=== PATIENT | male | born 1950 | race Caucasian/White ===

== ENCOUNTER 2018-05-16 15:35 | Inpatient (IN) | payer MEDICARE, SELFPAY ==
[2018-05-16 16:44] VITALS: BP 152/72; PULSE 62; RESP 18; TEMP 36.9; O2SAT 92; BMI 32.4
--- NOTE | 2018-05-16 16:45 | NURSING ---
Pt admitted to 9 from [facility]. Patient oriented to room and call light system explained.
--- NOTE | 2018-05-16 16:47 | PCM.HP.STD ---
Problem List (1) Acute respiratory failure Status: Acute (2) Shortness of breath Status: Acute (3) HCAP (healthcare-associated pneumonia) Status: Acute (4) Recurrent pleural effusion on right Status: Chronic (5) Hypertriglyceridemia Status: Chronic (6) Systolic and diastolic CHF, acute on chronic Status: Acute (7) Chronic kidney disease Status: Chronic (8) Diabetes mellitus Status: Chronic (9) Obesity Status: Chronic (10) Hypertension Status: Chronic History of Present Illness Date of Admission: 05/16/18 Chief Complaint: Here for rehabilitation, strengthening, prior to discharge home. The patient is a 67 year old Male with below past medical history presented to [facility] 05/09/2018 with shortness of breath. He has a history of acute on chronic respiratory failure with hypoxia on 4 Liters oxygen, recurrent pleural effusion on Pleurex drain. He was diagnosed with fluid overload secondary to acute on chronic systolic diastolic heart failure, and right lower lobe healthcare associated pneumonia. Chest X-ray showed fluid overload, Lasix was given. IV antibiotics given for healthcare associated pneumonia. EF 40%. Vancomycin, Zosyn for healthcare associated pneumonia. 05/16/2018 Admit to TCU with debility, here for rehabilitation, strengthening, prior to discharge home with spouse. Past Medical History Past Medical History (Chronic Problems): Chronic Problems Recurrent pleural effusion on right (Chronic) Hypertriglyceridemia (Chronic) Chronic kidney disease (Chronic) Diabetes mellitus (Chronic) Type 2 diabetes mellitus (Chronic) Obesity (Chronic) Hypertension (Chronic) History of tobacco use (Chronic) Home Medications: Ambulatory Orders Medication Instructions Recorded Amlodipine [Norvasc] 5 mg PO DAILY 05/16/18 Atorvastatin Calcium [Lipitor] 40 mg PO QHS 05/16/18 Carvedilol [Coreg] 6.25 mg PO BID 05/16/18 Doxazosin Mesylate [Cardura] 4 mg PO QHS 05/16/18 Ipratropium/Albuterol Sulfate 3 ml INHALATION Q2H PRN PRN 05/16/18 [Duoneb] Mirtazapine [Remeron] 15 mg PO QHS 05/16/18 Multivitamin [Daily Multiple 1 each PO DAILY 05/16/18 Vitamin] RX: Aspirin E.C. [Ecotrin] 81 mg PO DAILY@0800 05/16/18 RX: Ferrous Sulfate 325 mg PO BIDCM 05/16/18 RX: Furosemide 40 mg PO DAILY 05/16/18 RX: Hydralazine HCl 75 mg PO TID 05/16/18 RX: Pantoprazole Sodium 40 mg PO DAILY 05/16/18 Tiotropium [place] [Spiriva] 18 mcg IH DAILY 05/16/18 Surgical History: cholecystectomy, herniorrhaphy, - - Right toes amputation, right Pleurex catheter insertion. Psychiatric History: No pertinent psych hx Lives: Spouse/ Significant Other Smoking Status: Former smoker Tobacco Use: Cigarettes - Quit 09/20/2000. Alcohol: None Drugs: None - *Family History Maternal History Items: Cancer - breast., Diabetes, Heart Disease Paternal History Items: Diabetes, Heart Disease Review of Systems Constitutional: Denies: Chills, Fever, Weight Change HEENT: Denies: Head Aches, Sinus Congestion, Sinus Drainage Cardiovascular: Denies: Chest Pain, Palpitations Respiratory: Reports: Shortness of Breath, Shortness of breath at rest, Shortness of breath upon exertion. Denies: Cough, Sputum production Gastrointestinal: Denies: Abdominal Pain, Nausea, Vomiting Genitourinary: Denies: Dysuria Musculoskeletal: Denies: Joint Pain, Joint Tenderness Skin: Denies: Rash, Wounds Neurological: Denies: Numbness, Tingling, Focal weakness Psychiatric: Denies: Anxiety, Depression, Homicidal Ideations, Suicidal Ideations Hematologic/ Lymphatic: Denies: Easy Bruising, Easy Bleeding VTE Information - Inpt Only VTE Present on Admission: No VTE Mechan Device Prophylaxis: Knee High RUMA Hose VTE Pharm Prophylaxis ordered?: Yes Patient Problems: Active and Suspected Problems Acute respiratory failure (Acute) Shortness of breath (Acute) HCAP (healthcare-associated pneumonia) (Acute) Systolic and diastolic CHF, acute on chronic (Acute) - Physical Exam General: Alert, Oriented x3, Cooperative HEENT: Atraumatic, PERRLA, EOMI, Normocephalic Neck: Supple, No JVD, Negative Carotid Bruits Lungs: Diminished, Short of Breath, - - Right anterior chest pleurex catheter. Cardiovascular: Regular rate, No murmurs Abdomen: Bowel Sounds Present, Soft, Non Tender Extremities: No edema, Capillary Refill Less than 3 Seconds Skin: No rashes, No breakdown Musculoskeletal: No Tenderness to Palpation of Joints or Extremities Neurological: Cranial nerves II-XII grossly intact Psych/Mental Status: Normal Affect, Appropriate Assessment/Plan All Active Problems Acute respiratory failure (Acute) Shortness of breath (Acute) HCAP (healthcare-associated pneumonia) (Acute) Systolic and diastolic CHF, acute on chronic (Acute) 67 year old male with below past medical history hospitalized for acute respiratory failure from acute on chronic systolic diastolic heart failure, right lower lobe healthcare associated pneumonia, admitted to TCU with debility, here for rehabilitation, strengthening, prior to discharge home with spouse. Debility - PT/OT. Pain - Tylenol 1000MG Q8H PRN mild pain. Bowel - Miralax 17GM daily, Senna/colace 1 tablet BID, Dulcolax 10MG PO daily PRN. Pneumonia vaccination - Administer Prevnar 13 and/or Pneumovax 23 as necessary. DVT prophylaxis - Lovenox 40MG SC daily. Hypertension - Coreg 6.25MG BID, Amlodipine 5MG daily, Hydralazine 75MG TID. Coronary Artery Disease - Coreg 6.25MG BID, Aspirin 81MG daily. Hyperlipidemia - Atorvastatin 40MG QHS. Acute on chronic systolic diastolic heart failure - Coreg 6.25MG BID, Hydralazine 75MG TID, Lasix 40MG daily. Unable to afford Entresto, will not start. Shortness of breath - Duoneb 3ML Q2H PRN, Spiriva 18MCG daily. Depression/insomnia/appetite decrease - Mirtazapine 15MG QHS. Nutrition - MVI daily. GERD - Pantoprazole 40MG daily. BPH - Doxazosin 4MG QHS. Iron deficiency anemia - Ferrex 150MG BID.
--- NOTE | 2018-05-16 17:04 | HP.PCM_ITS ---
Problem List (1) Acute respiratory failure Status: Acute (2) Shortness of breath Status: Acute (3) HCAP (healthcare-associated pneumonia) Status: Acute (4) Recurrent pleural effusion on right Status: Chronic (5) Hypertriglyceridemia Status: Chronic (6) Systolic and diastolic CHF, acute on chronic Status: Acute (7) Chronic kidney disease Status: Chronic (8) Diabetes mellitus Status: Chronic (9) Obesity Status: Chronic (10) Hypertension Status: Chronic History of Present Illness Date of Admission: 05/16/18 Chief Complaint: Here for rehabilitation, strengthening, prior to discharge home. The patient is a 67 year old Male with below past medical history presented to [facility] 05/09/2018 with shortness of breath. He has a history of acute on chronic respiratory failure with hypoxia on 4 Liters oxygen, recurrent pleural effusion on Pleurex drain. He was diagnosed with fluid overload secondary to acute on chronic systolic diastolic heart failure, and right lower lobe healthcare associated pneumonia. Chest X-ray showed fluid overload, Lasix was given. IV antibiotics given for healthcare associated pneumonia. EF 40%. Vancomycin, Zosyn for healthcare associated pneumonia. 05/16/2018 Admit to TCU with debility, here for rehabilitation, strengthening, prior to discharge home with spouse. Past Medical History Past Medical History (Chronic Problems): Chronic Problems Recurrent pleural effusion on right (Chronic) Hypertriglyceridemia (Chronic) Chronic kidney disease (Chronic) Diabetes mellitus (Chronic) Type 2 diabetes mellitus (Chronic) Obesity (Chronic) Hypertension (Chronic) History of tobacco use (Chronic) Home Medications: Ambulatory Orders Medication Instructions Recorded Amlodipine [Norvasc] 5 mg PO DAILY 05/16/18 Atorvastatin Calcium [Lipitor] 40 mg PO QHS 05/16/18 Carvedilol [Coreg] 6.25 mg PO BID 05/16/18 Doxazosin Mesylate [Cardura] 4 mg PO QHS 05/16/18 Ipratropium/Albuterol Sulfate 3 ml INHALATION Q2H PRN PRN 05/16/18 [Duoneb] Mirtazapine [Remeron] 15 mg PO QHS 05/16/18 Multivitamin [Daily Multiple 1 each PO DAILY 05/16/18 Vitamin] RX: Aspirin E.C. [Ecotrin] 81 mg PO DAILY@0800 05/16/18 RX: Ferrous Sulfate 325 mg PO BIDCM 05/16/18 RX: Furosemide 40 mg PO DAILY 05/16/18 RX: Hydralazine HCl 75 mg PO TID 05/16/18 RX: Pantoprazole Sodium 40 mg PO DAILY 05/16/18 Tiotropium [place] [Spiriva] 18 mcg IH DAILY 05/16/18 Surgical History: cholecystectomy, herniorrhaphy, - - Right toes amputation, right Pleurex catheter insertion. Psychiatric History: No pertinent psych hx Lives: Spouse/ Significant Other Smoking Status: Former smoker Tobacco Use: Cigarettes - Quit 09/20/2000. Alcohol: None Drugs: None - *Family History Maternal History Items: Cancer - breast., Diabetes, Heart Disease Paternal History Items: Diabetes, Heart Disease Review of Systems Constitutional: Denies: Chills, Fever, Weight Change HEENT: Denies: Head Aches, Sinus Congestion, Sinus Drainage Cardiovascular: Denies: Chest Pain, Palpitations Respiratory: Reports: Shortness of Breath, Shortness of breath at rest, Shortness of breath upon exertion. Denies: Cough, Sputum production Gastrointestinal: Denies: Abdominal Pain, Nausea, Vomiting Genitourinary: Denies: Dysuria Musculoskeletal: Denies: Joint Pain, Joint Tenderness Skin: Denies: Rash, Wounds Neurological: Denies: Numbness, Tingling, Focal weakness Psychiatric: Denies: Anxiety, Depression, Homicidal Ideations, Suicidal Ideations Hematologic/ Lymphatic: Denies: Easy Bruising, Easy Bleeding VTE Information - Inpt Only VTE Present on Admission: No VTE Mechan Device Prophylaxis: Knee High RUMA Hose VTE Pharm Prophylaxis ordered?: Yes Patient Problems: Active and Suspected Problems Acute respiratory failure (Acute) Shortness of breath (Acute) HCAP (healthcare-associated pneumonia) (Acute) Systolic and diastolic CHF, acute on chronic (Acute) - Physical Exam General: Alert, Oriented x3, Cooperative HEENT: Atraumatic, PERRLA, EOMI, Normocephalic Neck: Supple, No JVD, Negative Carotid Bruits Lungs: Diminished, Short of Breath, - - Right anterior chest pleurex catheter. Cardiovascular: Regular rate, No murmurs Abdomen: Bowel Sounds Present, Soft, Non Tender Extremities: No edema, Capillary Refill Less than 3 Seconds Skin: No rashes, No breakdown Musculoskeletal: No Tenderness to Palpation of Joints or Extremities Neurological: Cranial nerves II-XII grossly intact Psych/Mental Status: Normal Affect, Appropriate Assessment/Plan All Active Problems Acute respiratory failure (Acute) Shortness of breath (Acute) HCAP (healthcare-associated pneumonia) (Acute) Systolic and diastolic CHF, acute on chronic (Acute) 67 year old male with below past medical history hospitalized for acute respiratory failure from acute on chronic systolic diastolic heart failure, right lower lobe healthcare associated pneumonia, admitted to TCU with debility, here for rehabilitation, strengthening, prior to discharge home with spouse. * Debility - PT/OT. * Pain - Tylenol 1000MG Q8H PRN mild pain. * Bowel - Miralax 17GM daily, Senna/colace 1 tablet BID, Dulcolax 10MG PO daily PRN. * Pneumonia vaccination - Administer Prevnar 13 and/or Pneumovax 23 as necessary. * DVT prophylaxis - Lovenox 40MG SC daily. * Hypertension - Coreg 6.25MG BID, Amlodipine 5MG daily, Hydralazine 75MG TID. * Coronary Artery Disease - Coreg 6.25MG BID, Aspirin 81MG daily. * Hyperlipidemia - Atorvastatin 40MG QHS. * Acute on chronic systolic diastolic heart failure - Coreg 6.25MG BID, Hydralazine 75MG TID, Lasix 40MG daily. Unable to afford Entresto, will not start. * Shortness of breath - Duoneb 3ML Q2H PRN, Spiriva 18MCG daily. * Depression/insomnia/appetite decrease - Mirtazapine 15MG QHS. * Nutrition - MVI daily. * GERD - Pantoprazole 40MG daily. * BPH - Doxazosin 4MG QHS. * Iron deficiency anemia - Ferrex 150MG BID.
[2018-05-16 17:26] LABS: Bedside Glucose 105 mg/dL (70-110)
[2018-05-16] MEDS: Carvedilol 6.25 MG Tablet PO (19:51)
[2018-05-16 20:47] VITALS: PULSE 72; O2SAT 93
[2018-05-16 21:21] LABS: Bedside Glucose 235 mg/dL (70-110)
[2018-05-16 21:23] VITALS: BP 167/64; PULSE 75
[2018-05-16] MEDS: Atorvastatin Calcium 40 MG Tablet PO (21:23)
[2018-05-16] MEDS: hydrALAZINE 25 MG Tablet 75 MG PO (21:23)
[2018-05-16] MEDS: Doxazosin 4 MG Tablet PO (21:23)
--- NOTE | 2018-05-16 23:05 | NURSING ---
No Order in for Pleurex drain. Order obtained from Dr Villegas at this time.
--- NOTE | 2018-05-16 23:54 | NURSING ---
Code status discussed with pt at this time. Pt wishes to be a Full Code.
[2018-05-17 00:44] VITALS: RESP 16
[2018-05-17] MEDS: Pantoprazole Sodium 40 MG Tablet PO (05:07)
[2018-05-17] MEDS: Furosemide 40 MG Tablet PO (05:07)
[2018-05-17] MEDS: Carvedilol 6.25 MG Tablet PO ×2 (05:07→17:03)
[2018-05-17] MEDS: amLODIPine 5 MG Tablet PO (05:07)
[2018-05-17 05:08] VITALS: BP 154/65; PULSE 70
[2018-05-17] MEDS: hydrALAZINE 25 MG Tablet 75 MG PO ×3 (05:08→20:03)
[2018-05-17] MEDS: Umeclidinium Bromide Inhaler 1 PUFF IH (05:09)
[2018-05-17 06:41] LABS: Bedside Glucose 125 mg/dL (70-110)
[2018-05-17 07:18] LABS: Absolute Lymphocyte Count 0.67 X10^3/ul (0.83-4.51); Absolute Neutrophil Count 4.3 X10^3/uL (2.0-7.7); Basophil# 0.02 X10^3/uL; Basophil% 0.3 % (0-1); Eosinophil# 0.36 X10^3/uL; Eosinophils% 5.9 % (0-5); Hematocrit 26.8 % (40-54); Hemoglobin 8.1 g/dl (13.0-16.5); Lymphocyte # 0.67 X10^3/ul (4.0); Mean Corp Hgb Conc 30.2 g/gl (32-36); Mean Corpuscular Hgb 30.1 pg (27.0-32.0); Mean Corpuscular Volume 99.6 fL (80-94); Monocyte# 0.72 X10^3/uL; Monocyte% 11.8 % (0-10); Neutrophil % 70.5 % (47-70); Platelet Count 138 K/mm3 (150-450); RBC Distribution Width CV 14.9 % (11.6-14.6); RBC Distribution Width SD 51.5 fl (35.1-43.9); Red Blood Count 2.69 M/mm3 (4.6-6.2); White Blood Count 6.1 K/mm3 (4.4-11.0)
[2018-05-17 07:23] LABS: POSITIVE COUNT NO; POSITIVE DIFFERENTIAL NO; POSITIVE MORPHOLOGY NO
[2018-05-17 07:45] LABS: Anion Gap 6 (5-15); BUN 42 mg/dL (7-18); Calcium,Total 8.3 mg/dL (8.5-10.1); Chloride 107 mmol/L (98-107); Creatinine, Serum 2.21 mg/dL (0.70-1.30); EST Glomerular Filtration Rate 32 mL/min (>60); Est Glom Filt Rate - Afr Amer 39 mL/min (>60); Estimated Creatinine Clearance 36.58 ml/min; Glucose 111 mg/dL (74-106); Potassium 4.8 mmol/L (3.5-5.1); Sodium Level 143 mmol/L (136-145)
[2018-05-17 08:28] VITALS: O2SAT 96
[2018-05-17] MEDS: Iron Polysaccharide Complex 150 MG CAPSULE PO ×2 (09:16→17:03)
[2018-05-17] MEDS: Multivitamins,Therapeutic Tablet 1 TABLET PO (09:16)
[2018-05-17] MEDS: Aspirin E.C. 81 MG Tablet PO (09:16)
[2018-05-17 12:06] LABS: Bedside Glucose 164 mg/dL (70-110)
[2018-05-17 14:25] VITALS: BP 154/59; PULSE 62
[2018-05-17] MEDS: Enoxaparin 40 MG/0.4 ML Syringe SC (14:26)
[2018-05-17] MEDS: Tuberculin,Purif.prot.deriv. 50 TU/ML Vial 5 ML ID (14:26)
[2018-05-17 15:31] VITALS: BP 145/56; PULSE 65; RESP 18; TEMP 37; O2SAT 95
[2018-05-17] MEDS: Senna/Docusate Sodium 1 Tablet PO (17:03)
[2018-05-17 20:03] VITALS: BP 142/46; PULSE 72
[2018-05-17] MEDS: Doxazosin 4 MG Tablet PO (20:03)
[2018-05-17] MEDS: Atorvastatin Calcium 40 MG Tablet PO (20:04)
[2018-05-18] MEDS: Umeclidinium Bromide Inhaler 1 PUFF IH (05:49)
[2018-05-18 05:50] VITALS: BP 135/58; PULSE 70
[2018-05-18] MEDS: hydrALAZINE 25 MG Tablet 75 MG PO ×3 (05:50→21:19)
[2018-05-18] MEDS: Senna/Docusate Sodium 1 Tablet PO ×2 (05:51→17:16)
[2018-05-18] MEDS: amLODIPine 5 MG Tablet PO (05:51)
[2018-05-18] MEDS: Furosemide 40 MG Tablet PO (05:51)
[2018-05-18] MEDS: Enoxaparin 40 MG/0.4 ML Syringe SC (05:51)
[2018-05-18] MEDS: Pantoprazole Sodium 40 MG Tablet PO (05:51)
[2018-05-18] MEDS: Carvedilol 6.25 MG Tablet PO ×2 (05:51→17:16)
[2018-05-18] MEDS: Loratadine 10 MG Tablet PO (05:51)
[2018-05-18 06:58] VITALS: O2SAT 96
[2018-05-18 07:26] LABS: Bedside Glucose 134 mg/dL (70-110)
[2018-05-18] MEDS: Aspirin E.C. 81 MG Tablet PO (08:04)
[2018-05-18] MEDS: Iron Polysaccharide Complex 150 MG CAPSULE PO ×2 (08:04→17:16)
[2018-05-18] MEDS: Multivitamins,Therapeutic Tablet 1 TABLET PO (08:07)
[2018-05-18 13:45] VITALS: PULSE 60
[2018-05-18 15:30] VITALS: BP 147/57; PULSE 62; RESP 16; TEMP 36.8; O2SAT 94
[2018-05-18 21:19] VITALS: BP 161/61; PULSE 64
[2018-05-18] MEDS: Doxazosin 4 MG Tablet PO (21:21)
[2018-05-18] MEDS: Atorvastatin Calcium 40 MG Tablet PO (21:21)
[2018-05-19 05:46] VITALS: BP 157/53; PULSE 59
[2018-05-19] MEDS: amLODIPine 5 MG Tablet PO (05:46)
[2018-05-19] MEDS: Loratadine 10 MG Tablet PO (05:46)
[2018-05-19] MEDS: hydrALAZINE 25 MG Tablet 75 MG PO ×3 (05:46→20:24)
[2018-05-19] MEDS: Carvedilol 6.25 MG Tablet PO ×2 (05:46→18:24)
[2018-05-19] MEDS: Pantoprazole Sodium 40 MG Tablet PO (05:46)
[2018-05-19] MEDS: Furosemide 40 MG Tablet PO (05:46)
[2018-05-19] MEDS: Senna/Docusate Sodium 1 Tablet PO (05:47)
[2018-05-19] MEDS: Enoxaparin 40 MG/0.4 ML Syringe SC (05:48)
[2018-05-19] MEDS: Umeclidinium Bromide Inhaler 1 PUFF IH (05:49)
[2018-05-19 06:30] LABS: Bedside Glucose 126 mg/dL (70-110)
[2018-05-19 06:50] VITALS: O2SAT 94
[2018-05-19] MEDS: Multivitamins,Therapeutic Tablet 1 TABLET PO (09:29)
[2018-05-19] MEDS: Iron Polysaccharide Complex 150 MG CAPSULE PO ×2 (09:29→18:24)
[2018-05-19] MEDS: Aspirin E.C. 81 MG Tablet PO (09:29)
--- NOTE | 2018-05-19 14:35 | PCM.PN.RX ---
<YinMilan lucero D - Last Filed: 05/19/18 14:35> Progress Note - Pharmacy Subjective: [] Objective: Allergies bacitracin Allergy (Verified 05/16/18 17:25) Rash rosuvastatin [From Crestor] Adverse Reaction (Verified 05/16/18 17:25) Upset Stomach Current Medications Generic Name Dose Route Start Last Admin Trade Name Freq PRN Reason Stop Dose Admin Acetaminophen 1,000 mg 05/16/18 17:27 Tylenol PO Q8H PRN PRN MILD PAIN (1-310) Albuterol/Ipratropium 3 ml 05/16/18 17:15 Duoneb INHALATION Q2H PRN PRN SOB &/OR WHEEZING Amlodipine Besylate 5 mg 05/17/18 06:00 05/19/18 05:46 Norvasc PO 5 mg DAILY JOCELYNN Administration Aspirin 81 mg 05/17/18 08:00 05/19/18 09:29 Ecotrin PO 81 mg DAILY@0800 JOCELYNN Administration Atorvastatin Calcium 40 mg 05/16/18 22:00 05/18/18 21:21 Lipitor PO 40 mg QHS JOCELYNN Administration Bisacodyl 10 mg 05/16/18 17:28 Dulcolax PO DAILY PRN Constipation Carvedilol 6.25 mg 05/16/18 18:00 05/19/18 05:46 Coreg PO 6.25 mg BID JOCELYNN Administration Doxazosin Mesylate 4 mg 05/16/18 22:00 05/18/18 21:21 Cardura PO 4 mg QHS JOCELYNN Administration Enoxaparin Sodium 40 mg 05/17/18 13:00 05/19/18 05:48 Lovenox SC 40 mg DAILY@0600 JOCELYNN Administration Furosemide 40 mg 05/17/18 06:00 05/19/18 05:46 Lasix PO 40 mg DAILY JOCELYNN Administration Hydralazine HCl 75 mg 05/16/18 22:00 05/19/18 05:46 Apresoline PO 75 mg TID JOCELYNN Administration Loratadine 10 mg 05/18/18 06:00 05/19/18 05:46 Claritin PO 10 mg DAILY JOCELYNN Administration Multivitamins 1 tablet 05/17/18 08:00 05/19/18 09:29 Multivitamin PO 1 tablet DAILY@0800 JOCELYNN Administration Pantoprazole Sodium 40 mg 05/17/18 06:00 05/19/18 05:46 Protonix PO 40 mg DAILY JOCELYNN Administration Polyethylene Glycol 17 gm 05/17/18 06:00 05/19/18 05:47 Miralax PO Not Given DAILY JOCELYNN Polysaccharide Iron Complex 150 mg 05/17/18 08:00 05/19/18 09:29 Ferrex 150 PO 150 mg BIDCM JOCELYNN Administration Senna/Docusate Sodium 1 tablet 05/16/18 18:00 05/19/18 05:47 Senokot-S, Marcelina-Colace PO 1 tablet BID JOCELYNN Administration Tuberculin PPD 5 tu 05/24/18 10:00 Tubersol, Aplisol, Ppd ID 05/24/18 10:01 X1 ONE Problem List Acute respiratory failure (Acute) Shortness of breath (Acute) HCAP (healthcare-associated pneumonia) (Acute) Recurrent pleural effusion on right (Chronic) Hypertriglyceridemia (Chronic) Systolic and diastolic CHF, acute on chronic (Acute) Chronic kidney disease (Chronic) Diabetes mellitus (Chronic) Vital Signs Temp Pulse Resp BP Pulse Ox 98.2 F 59 L 16 157/53 H 94 05/18/18 15:30 05/19/18 05:46 05/18/18 15:30 05/19/18 05:46 05/19/18 06:50 Oxygen Flow Rate (L/min) 2.5 Oxygen Delivery Method Nasal Cannula Weight: 108.409 kg Body Mass Index (BMI) 32.4 Sodium 143 mmol/L (136-145) 05/17/18 06:15 Potassium 4.8 mmol/L (3.5-5.1) 05/17/18 06:15 Chloride 107 mmol/L (98-107) 05/17/18 06:15 Carbon Dioxide 30.0 mmol/L (21.0-32.0) 05/17/18 06:15 Anion Gap 6 (5-15) 05/17/18 06:15 BUN 42 mg/dL (7-18) H 05/17/18 06:15 Creatinine 2.21 mg/dL (0.70-1.30) H 05/17/18 06:15 Est GFR (MDRD) Af Amer 39 mL/min (>60) L 05/17/18 06:15 Est GFR (MDRD) Non-Af 32 mL/min (>60) L 10/06/18 06:15 BUN/Creatinine Ratio 19.0 RATIO (10-20) 05/17/18 06:15 Glucose 111 mg/dL (74-106) H 05/17/18 06:15 Assessment/Plan: 1) Pain APAP for mild pain. Continue to monitor prn medication use, daily pain scores. 2) HTN/CAD/CHF Amlodipine, ASA, atorvastatin, carvedilol, doxazosin, furosemide, hydralazine. Continue to monitor BP/HR, renal function, electrolytes, lipids, swelling. 3) Pulm Loratadine, Duoneb aerosols prn, Incruse inh. Continue to monitor prn medication use, for shortness of breath. 4) Nutrition Fe, multivitamin. Continue to monitor clinically. 5) DVT PPx Enoxaparin daily. Continue to monitor s/s bleeding/clot. Psychotropic Medications: None Unnecessary Medications: None Bowel Regimen: 6) Senna/s, PEG, prn bisacodyl. Continue to monitor prn medication use, for constipation/diarrhea. Date of Note:: 05/19/18 - Provider Comments Provider responsibility: Provider responsible to enter orders to implement recommendations <Juan José Villegas Chi - Last Filed: 05/19/18 17:38> Progress Note - Pharmacy Subjective: [] Objective: Allergies bacitracin Allergy (Verified 05/16/18 17:25) Rash rosuvastatin [From Crestor] Adverse Reaction (Verified 05/16/18 17:25) Upset Stomach Current Medications Generic Name Dose Route Start Last Admin Trade Name Freq PRN Reason Stop Dose Admin Acetaminophen 1,000 mg 05/16/18 17:27 Tylenol PO Q8H PRN PRN MILD PAIN (1-3/10) Albuterol/Ipratropium 3 ml 05/16/18 17:15 Duoneb INHALATION Q2H PRN PRN SOB &/OR WHEEZING Amlodipine Besylate 5 mg 05/17/18 06:00 05/19/18 05:46 Norvasc PO 5 mg DAILY JOCELYNN Administration Aspirin 81 mg 05/17/18 08:00 05/19/18 09:29 Ecotrin PO 81 mg DAILY@0800 JOCELYNN Administration Atorvastatin Calcium 40 mg 05/16/18 22:00 05/18/18 21:21 Lipitor PO 40 mg QHS JOCELYNN Administration Bisacodyl 10 mg 05/16/18 17:28 Dulcolax PO DAILY PRN Constipation Carvedilol 6.25 mg 05/16/18 18:00 05/19/18 05:46 Coreg PO 6.25 mg BID [facility] Administration Doxazosin Mesylate 4 mg 05/16/18 22:00 05/18/18 21:21 Cardura PO 4 mg QHS [facility] Administration Enoxaparin Sodium 40 mg 05/17/18 13:00 05/19/18 05:48 Lovenox SC 40 mg DAILY@0600 [facility] Administration Furosemide 40 mg 05/17/18 06:00 05/19/18 05:46 Lasix PO 40 mg DAILY [facility] Administration Hydralazine HCl 75 mg 05/16/18 22:00 05/19/18 15:00 Apresoline PO 75 mg TID [facility] Administration Loratadine 10 mg 05/18/18 06:00 05/19/18 05:46 Claritin PO 10 mg DAILY [facility] Administration Multivitamins 1 tablet 05/17/18 08:00 05/19/18 09:29 Multivitamin PO 1 tablet DAILY@0800 [facility] Administration Pantoprazole Sodium 40 mg 05/17/18 06:00 05/19/18 05:46 Protonix PO 40 mg DAILY [facility] Administration Polyethylene Glycol 17 gm 05/17/18 06:00 05/19/18 05:47 Miralax PO Not Given DAILY [facility] Polysaccharide Iron Complex 150 mg 05/17/18 08:00 05/19/18 09:29 Ferrex 150 PO 150 mg BIDCM [facility] Administration Senna/Docusate Sodium 1 tablet 05/16/18 18:00 05/19/18 05:47 Senokot-S, Marcelina-Colace PO 1 tablet BID [facility] Administration Tuberculin PPD 5 tu 05/24/18 10:00 Tubersol, Aplisol, Ppd ID 05/24/18 10:01 X1 ONE Problem List Acute respiratory failure (Acute) Shortness of breath (Acute) HCAP (healthcare-associated pneumonia) (Acute) Recurrent pleural effusion on right (Chronic) Hypertriglyceridemia (Chronic) Systolic and diastolic CHF, acute on chronic (Acute) Chronic kidney disease (Chronic) Diabetes mellitus (Chronic) Vital Signs Temp Pulse Resp BP Pulse Ox 97.9 F 69 16 154/45 H 95 05/19/18 15:07 05/19/18 15:07 05/18/18 15:30 05/19/18 15:07 05/19/18 15:07 Oxygen Flow Rate (L/min) 2 Oxygen Delivery Method Nasal Cannula Weight: 108.409 kg Body Mass Index (BMI) 32.4 Sodium 143 mmol/L (136-145) 05/17/18 06:15 Potassium 4.8 mmol/L (3.5-5.1) 05/17/18 06:15 Chloride 107 mmol/L (98-107) 05/17/18 06:15 Carbon Dioxide 30.0 mmol/L (21.0-32.0) 05/17/18 06:15 Anion Gap 6 (5-15) 05/17/18 06:15 BUN 42 mg/dL (7-18) H 05/17/18 06:15 Creatinine 2.21 mg/dL (0.70-1.30) H 05/17/18 06:15 Est GFR (MDRD) Af Amer 39 mL/min (>60) L 05/17/18 06:15 Est GFR (MDRD) Non-Af 32 mL/min (>60) L 05/17/18 06:15 BUN/Creatinine Ratio 19.0 RATIO (10-20) 05/17/18 06:15 Glucose 111 mg/dL (74-106) H 05/17/18 06:15 Assessment/Plan: Psychotropic Medications: Unnecessary Medications: Bowel Regimen: - Provider Comments Provider responsibility: Provider responsible to enter orders to implement recommendations Provider Comments to Recommendations by Pharmacy: Agree
--- NOTE | 2018-05-19 14:43 | PHA.CONS_ITS ---
<YinMilan lucero D - Last Filed: 05/19/18 14:35> Progress Note - Pharmacy Subjective: [] Objective: Allergies bacitracin Allergy (Verified 05/16/18 17:25) Rash rosuvastatin [From Crestor] Adverse Reaction (Verified 05/16/18 17:25) Upset Stomach Current Medications Generic Name Dose Route Start Last Admin Trade Name Freq PRN Reason Stop Dose Admin Acetaminophen 1,000 mg 05/16/18 17:27 Tylenol PO Q8H PRN PRN MILD PAIN (1-310) Albuterol/Ipratropium 3 ml 05/16/18 17:15 Duoneb INHALATION Q2H PRN PRN SOB &/OR WHEEZING Amlodipine Besylate 5 mg 05/17/18 06:00 05/19/18 05:46 Norvasc PO 5 mg DAILY JOCELYNN Administration Aspirin 81 mg 05/17/18 08:00 05/19/18 09:29 Ecotrin PO 81 mg DAILY@0800 JOCELYNN Administration Atorvastatin Calcium 40 mg 05/16/18 22:00 05/18/18 21:21 Lipitor PO 40 mg QHS JOCELYNN Administration Bisacodyl 10 mg 05/16/18 17:28 Dulcolax PO DAILY PRN Constipation Carvedilol 6.25 mg 05/16/18 18:00 05/19/18 05:46 Coreg PO 6.25 mg BID JOCELYNN Administration Doxazosin Mesylate 4 mg 05/16/18 22:00 05/18/18 21:21 Cardura PO 4 mg QHS JOCELYNN Administration Enoxaparin Sodium 40 mg 05/17/18 13:00 05/19/18 05:48 Lovenox SC 40 mg DAILY@0600 JOCELYNN Administration Furosemide 40 mg 05/17/18 06:00 05/19/18 05:46 Lasix PO 40 mg DAILY JOCELYNN Administration Hydralazine HCl 75 mg 05/16/18 22:00 05/19/18 05:46 Apresoline PO 75 mg TID JOCELYNN Administration Loratadine 10 mg 05/18/18 06:00 05/19/18 05:46 Claritin PO 10 mg DAILY JOCELYNN Administration Multivitamins 1 tablet 05/17/18 08:00 05/19/18 09:29 Multivitamin PO 1 tablet DAILY@0800 JOCELYNN Administration Pantoprazole Sodium 40 mg 05/17/18 06:00 05/19/18 05:46 Protonix PO 40 mg DAILY JOCELYNN Administration Polyethylene Glycol 17 gm 05/17/18 06:00 05/19/18 05:47 Miralax PO Not Given DAILY JOCELYNN Polysaccharide Iron Complex 150 mg 05/17/18 08:00 05/19/18 09:29 Ferrex 150 PO 150 mg BIDCM JOCELYNN Administration Senna/Docusate Sodium 1 tablet 05/16/18 18:00 05/19/18 05:47 Senokot-S, Marcelina-Colace PO 1 tablet BID JOCELYNN Administration Tuberculin PPD 5 tu 05/24/18 10:00 Tubersol, Aplisol, Ppd ID 05/24/18 10:01 X1 ONE Problem List Acute respiratory failure (Acute) Shortness of breath (Acute) HCAP (healthcare-associated pneumonia) (Acute) Recurrent pleural effusion on right (Chronic) Hypertriglyceridemia (Chronic) Systolic and diastolic CHF, acute on chronic (Acute) Chronic kidney disease (Chronic) Diabetes mellitus (Chronic) Vital Signs Temp Pulse Resp BP Pulse Ox 98.2 F 59 L 16 157/53 H 94 05/18/18 15:30 05/19/18 05:46 05/18/18 15:30 05/19/18 05:46 05/19/18 06:50 Oxygen Flow Rate (L/min) 2.5 Oxygen Delivery Method Nasal Cannula Weight: 108.409 kg Body Mass Index (BMI) 32.4 Sodium 143 mmol/L (136-145) 05/17/18 06:15 Potassium 4.8 mmol/L (3.5-5.1) 05/17/18 06:15 Chloride 107 mmol/L (98-107) 05/17/18 06:15 Carbon Dioxide 30.0 mmol/L (21.0-32.0) 05/17/18 06:15 Anion Gap 6 (5-15) 05/17/18 06:15 BUN 42 mg/dL (7-18) H 05/17/18 06:15 Creatinine 2.21 mg/dL (0.70-1.30) H 05/17/18 06:15 Est GFR (MDRD) Af Amer 39 mL/min (>60) L 05/17/18 06:15 Est GFR (MDRD) Non-Af 32 mL/min (>60) L 10/06/18 06:15 BUN/Creatinine Ratio 19.0 RATIO (10-20) 05/17/18 06:15 Glucose 111 mg/dL (74-106) H 05/17/18 06:15 Assessment/Plan: 1) Pain APAP for mild pain. Continue to monitor prn medication use, daily pain scores. 2) HTN/CAD/CHF Amlodipine, ASA, atorvastatin, carvedilol, doxazosin, furosemide, hydralazine. Continue to monitor BP/HR, renal function, electrolytes, lipids, swelling. 3) Pulm Loratadine, Duoneb aerosols prn, Incruse inh. Continue to monitor prn medication use, for shortness of breath. 4) Nutrition Fe, multivitamin. Continue to monitor clinically. 5) DVT PPx Enoxaparin daily. Continue to monitor s/s bleeding/clot. Psychotropic Medications: None Unnecessary Medications: None Bowel Regimen: 6) Senna/s, PEG, prn bisacodyl. Continue to monitor prn medication use, for constipation/diarrhea. Date of Note:: 05/19/18 - Provider Comments Provider responsibility: Provider responsible to enter orders to implement recommendations <Juan José Villegas Chi - Last Filed: 05/19/18 17:38> Progress Note - Pharmacy Subjective: [] Objective: Allergies bacitracin Allergy (Verified 05/16/18 17:25) Rash rosuvastatin [From Crestor] Adverse Reaction (Verified 05/16/18 17:25) Upset Stomach Current Medications Generic Name Dose Route Start Last Admin Trade Name Freq PRN Reason Stop Dose Admin Acetaminophen 1,000 mg 05/16/18 17:27 Tylenol PO Q8H PRN PRN MILD PAIN (1-3/10) Albuterol/Ipratropium 3 ml 05/16/18 17:15 Duoneb INHALATION Q2H PRN PRN SOB &/OR WHEEZING Amlodipine Besylate 5 mg 05/17/18 06:00 05/19/18 05:46 Norvasc PO 5 mg DAILY JOCELYNN Administration Aspirin 81 mg 05/17/18 08:00 05/19/18 09:29 Ecotrin PO 81 mg DAILY@0800 JOCELYNN Administration Atorvastatin Calcium 40 mg 05/16/18 22:00 05/18/18 21:21 Lipitor PO 40 mg QHS JOCELYNN Administration Bisacodyl 10 mg 05/16/18 17:28 Dulcolax PO DAILY PRN Constipation Carvedilol 6.25 mg 05/16/18 18:00 05/19/18 05:46 Coreg PO 6.25 mg BID [facility] TO [facility] Administration Doxazosin Mesylate 4 mg 05/16/18 22:00 05/18/18 21:21 Cardura PO 4 mg QHS [facility] TO [facility] Administration Enoxaparin Sodium 40 mg 05/17/18 13:00 05/19/18 05:48 Lovenox SC 40 mg DAILY@0600 [facility] TO [facility] Administration Furosemide 40 mg 05/17/18 06:00 05/19/18 05:46 Lasix PO 40 mg DAILY [facility] Administration Hydralazine HCl 75 mg 05/16/18 22:00 05/19/18 15:00 Apresoline PO 75 mg TID [facility] Administration Loratadine 10 mg 05/18/18 06:00 05/19/18 05:46 Claritin PO 10 mg DAILY [facility] Administration Multivitamins 1 tablet 05/17/18 08:00 05/19/18 09:29 Multivitamin PO 1 tablet DAILY@0800 [facility] Administration Pantoprazole Sodium 40 mg 05/17/18 06:00 05/19/18 05:46 Protonix PO 40 mg DAILY [facility] Administration Polyethylene Glycol 17 gm 05/17/18 06:00 05/19/18 05:47 Miralax PO Not Given DAILY [facility] Polysaccharide Iron Complex 150 mg 05/17/18 08:00 05/19/18 09:29 Ferrex 150 PO 150 mg BIDCM [facility] Administration Senna/Docusate Sodium 1 tablet 05/16/18 18:00 05/19/18 05:47 Senokot-S, Marcelina-Colace PO 1 tablet BID [facility] Administration Tuberculin PPD 5 tu 05/24/18 10:00 Tubersol, Aplisol, Ppd ID 05/24/18 10:01 X1 ONE Problem List Acute respiratory failure (Acute) Shortness of breath (Acute) HCAP (healthcare-associated pneumonia) (Acute) Recurrent pleural effusion on right (Chronic) Hypertriglyceridemia (Chronic) Systolic and diastolic CHF, acute on chronic (Acute) Chronic kidney disease (Chronic) Diabetes mellitus (Chronic) Vital Signs Temp Pulse Resp BP Pulse Ox 97.9 F 69 16 154/45 H 95 05/19/18 15:07 05/19/18 15:07 05/18/18 15:30 05/19/18 15:07 05/19/18 15:07 Oxygen Flow Rate (L/min) 2 Oxygen Delivery Method Nasal Cannula Weight: 108.409 kg Body Mass Index (BMI) 32.4 Sodium 143 mmol/L (136-145) 05/17/18 06:15 Potassium 4.8 mmol/L (3.5-5.1) 05/17/18 06:15 Chloride 107 mmol/L (98-107) 05/17/18 06:15 Carbon Dioxide 30.0 mmol/L (21.0-32.0) 05/17/18 06:15 Anion Gap 6 (5-15) 05/17/18 06:15 BUN 42 mg/dL (7-18) H 05/17/18 06:15 Creatinine 2.21 mg/dL (0.70-1.30) H 05/17/18 06:15 Est GFR (MDRD) Af Amer 39 mL/min (>60) L 05/17/18 06:15 Est GFR (MDRD) Non-Af 32 mL/min (>60) L 05/17/18 06:15 BUN/Creatinine Ratio 19.0 RATIO (10-20) 05/17/18 06:15 Glucose 111 mg/dL (74-106) H 05/17/18 06:15 Assessment/Plan: Psychotropic Medications: Unnecessary Medications: Bowel Regimen: - Provider Comments Provider responsibility: Provider responsible to enter orders to implement recommendations Provider Comments to Recommendations by Pharmacy: Agree
[2018-05-19 15:00] VITALS: BP 156/45; PULSE 69
[2018-05-19 15:07] VITALS: BP 154/45; PULSE 69; TEMP 36.6; O2SAT 95
[2018-05-19 20:24] VITALS: BP 154/53; PULSE 67
[2018-05-19] MEDS: Atorvastatin Calcium 40 MG Tablet PO (20:24)
[2018-05-19] MEDS: Doxazosin 4 MG Tablet PO (20:24)
[2018-05-20 05:27] VITALS: BP 146/63; PULSE 63
[2018-05-20] MEDS: hydrALAZINE 25 MG Tablet 75 MG PO ×3 (05:27→20:09)
[2018-05-20] MEDS: amLODIPine 5 MG Tablet PO (05:27)
[2018-05-20] MEDS: Furosemide 40 MG Tablet PO (05:27)
[2018-05-20] MEDS: Loratadine 10 MG Tablet PO (05:27)
[2018-05-20] MEDS: Carvedilol 6.25 MG Tablet PO ×2 (05:27→16:45)
[2018-05-20] MEDS: Enoxaparin 40 MG/0.4 ML Syringe SC (05:27)
[2018-05-20] MEDS: Pantoprazole Sodium 40 MG Tablet PO (05:27)
[2018-05-20] MEDS: Umeclidinium Bromide Inhaler 1 PUFF IH (05:28)
[2018-05-20 06:51] VITALS: O2SAT 95
[2018-05-20 07:01] LABS: Bedside Glucose 124 mg/dL (70-110)
[2018-05-20] MEDS: Iron Polysaccharide Complex 150 MG CAPSULE PO ×2 (08:25→16:45)
[2018-05-20] MEDS: Aspirin E.C. 81 MG Tablet PO (08:25)
[2018-05-20] MEDS: Multivitamins,Therapeutic Tablet 1 TABLET PO (08:25)
--- NOTE | 2018-05-20 10:15 | NURSING ---
off unit to dr rico appt with
--- NOTE | 2018-05-20 14:20 | NURSING ---
starla lee rn into change dressing
--- NOTE | 2018-05-20 14:21 | NURSING ---
wound photo: right plantar foot
[2018-05-20 15:10] VITALS: BP 161/64; PULSE 73
[2018-05-20 15:39] VITALS: BP 161/64; PULSE 73; RESP 20; TEMP 36.5; O2SAT 92
[2018-05-20] MEDS: Senna/Docusate Sodium 1 Tablet PO (16:45)
[2018-05-20] MEDS: Acetaminophen 500 MG Tablet 1000 MG PO (16:47)
[2018-05-20] MEDS: Doxazosin 4 MG Tablet PO (20:08)
[2018-05-20 20:09] VITALS: BP 158/60; PULSE 60
[2018-05-20] MEDS: Atorvastatin Calcium 40 MG Tablet PO (20:09)
[2018-05-21] MEDS: Umeclidinium Bromide Inhaler 1 PUFF IH (05:53)
[2018-05-21] MEDS: Carvedilol 6.25 MG Tablet PO ×2 (05:54→16:54)
[2018-05-21] MEDS: Senna/Docusate Sodium 1 Tablet PO (05:54)
[2018-05-21] MEDS: Furosemide 40 MG Tablet PO (05:54)
[2018-05-21] MEDS: Loratadine 10 MG Tablet PO (05:54)
[2018-05-21] MEDS: amLODIPine 5 MG Tablet PO (05:54)
[2018-05-21] MEDS: Pantoprazole Sodium 40 MG Tablet PO (05:54)
[2018-05-21 05:55] VITALS: BP 152/58; PULSE 58
[2018-05-21] MEDS: hydrALAZINE 25 MG Tablet 75 MG PO ×3 (05:55→21:19)
[2018-05-21] MEDS: Enoxaparin 40 MG/0.4 ML Syringe SC (05:57)
[2018-05-21 06:55] LABS: Bedside Glucose 161 mg/dL (70-110)
[2018-05-21 07:00] VITALS: O2SAT 96
[2018-05-21] MEDS: Multivitamins,Therapeutic Tablet 1 TABLET PO (08:48)
[2018-05-21] MEDS: Aspirin E.C. 81 MG Tablet PO (08:48)
[2018-05-21] MEDS: Iron Polysaccharide Complex 150 MG CAPSULE PO ×2 (08:48→16:54)
--- NOTE | 2018-05-21 11:06 | CASEMGMT ---
Plan of care meeting held. Resident present as well as resident spouse. No discharge date set at this time. Resident to continue with further care and treatment on the Transitional Care Unit. Resident plans to discharge to home with spouse at time of discharge. Support given. Will continue to follow. Qiana BOSE, COMPLIANCE CONSULTANT
--- NOTE | 2018-05-21 15:00 | NURSING ---
PT RETURNED FROM DR FENTON W/WRITTEN RECOMMENDATION FROM CARDIOLOGY . THIS NURSE CALLED CARDIOLOGY DR OFFICE FOR CLARIFICATION ON RECOMMENDATION D/T RECOMMENDATION DIFFICULT TO READ. OFFICE CALLED BACK AND STATED THAT DR SIM STATES I CANNOT WRITE ORDERS FOR THE HOSP. OFFICE STATES TO CLARIFY W/ATTENDING . THIS NURSE INFORMS THAT I JUST NEED CLARIFICATION TO WHAT THE RECOMMENDATION STATES SO I MAY DISCUSS W/DR SIDDHARTH SIM'S OFFICE STATES AGAIN THAT I NEED TO TALK TO HOSP ATTENDING. WILL SHOW DR SONA SIM'S RECOMMENDATION.
[2018-05-21 15:05] VITALS: BP 148/68; PULSE 63
[2018-05-21 15:24] VITALS: BP 148/68; PULSE 62; RESP 18; TEMP 36.7; O2SAT 95
--- NOTE | 2018-05-21 16:52 | CASEMGMT ---
Brief interview for mental status (BIMS) and resident mood interview (PHQ-9) completed on this day. BIMS score 13/15. PHQ-9 score
--- NOTE | 2018-05-21 18:15 | RAD_ITS ---
STUDY: X-RAY CHEST REASON FOR EXAM: Male, 67 years old. Shortness of breath TECHNIQUE: Frontal and lateral views of the chest. COMPARISON: 02/16/2014. FINDINGS: Hyperexpanded lungs. Bilateral perihilar and bibasilar atelectasis or infiltrate worse on the right. Bilateral small pleural effusions. There is an indwelling pleural drain in the lower right hemithorax. There is mild cardiac enlargement. Normal mediastinum and luke. Normal visualized pulmonary arteries. Normal visualized aortic arch and descending thoracic aorta. There are diffuse degenerative changes of the visualized thoracic spine. Normal visualized ribs, clavicles, and shoulders. There is no demonstrated abnormality of the visualized soft tissue structures of the upper abdomen. RAD/Chest PA and Lateral IMPRESSION: Bilateral perihilar and bibasilar atelectasis or infiltrate. Bilateral small pleural effusions. Electronically Signed: Cy Walter MD at 21:24 EDT , Service support ,
[2018-05-21 20:30] VITALS: PULSE 63; RESP 18; O2SAT 94
[2018-05-21 21:19] VITALS: BP 161/60; PULSE 63
[2018-05-21] MEDS: Atorvastatin Calcium 40 MG Tablet PO (21:20)
[2018-05-21] MEDS: Doxazosin 4 MG Tablet PO (21:22)
[2018-05-22] VITALS (7 sets, daily range): BP systolic 140–175; BP diastolic 56–80; PULSE 60–88; RESP 18; TEMP 36.4–36.8; O2SAT 95
[2018-05-22] MEDS: Carvedilol 6.25 MG Tablet PO ×2 (06:05→16:56)
[2018-05-22] MEDS: Pantoprazole Sodium 40 MG Tablet PO (06:05)
[2018-05-22] MEDS: Umeclidinium Bromide Inhaler 1 PUFF IH (06:05)
[2018-05-22] MEDS: Furosemide 40 MG Tablet PO (06:05)
[2018-05-22] MEDS: amLODIPine 5 MG Tablet PO (06:05)
[2018-05-22] MEDS: Loratadine 10 MG Tablet PO (06:05)
[2018-05-22] MEDS: Senna/Docusate Sodium 1 Tablet PO ×2 (06:05→16:56)
[2018-05-22] MEDS: hydrALAZINE 25 MG Tablet 75 MG PO ×3 (06:06→22:35)
[2018-05-22] MEDS: Enoxaparin 40 MG/0.4 ML Syringe SC (06:13)
[2018-05-22 07:11] LABS: Bedside Glucose 130 mg/dL (70-110)
[2018-05-22] MEDS: Aspirin E.C. 81 MG Tablet PO (08:56)
[2018-05-22] MEDS: Multivitamins,Therapeutic Tablet 1 TABLET PO (08:56)
[2018-05-22] MEDS: Iron Polysaccharide Complex 150 MG CAPSULE PO ×2 (08:56→16:56)
--- NOTE | 2018-05-22 14:08 | MDS.RN ---
Pain interview for rashida 05/23/18 completed.
[2018-05-22] MEDS: Atorvastatin Calcium 40 MG Tablet PO (21:10)
[2018-05-22] MEDS: Doxazosin 4 MG Tablet PO (21:10)
[2018-05-23] VITALS (7 sets, daily range): BP systolic 142–159; BP diastolic 57–69; PULSE 60–69; RESP 16–22; TEMP 36.7; O2SAT 94–95
[2018-05-23] MEDS: hydrALAZINE 25 MG Tablet 75 MG PO ×3 (05:18→20:46)
[2018-05-23] MEDS: Enoxaparin 40 MG/0.4 ML Syringe SC (05:19)
[2018-05-23] MEDS: Carvedilol 6.25 MG Tablet PO ×2 (05:19→17:31)
[2018-05-23] MEDS: Loratadine 10 MG Tablet PO (05:19)
[2018-05-23] MEDS: Furosemide 40 MG Tablet PO (05:19)
[2018-05-23] MEDS: Senna/Docusate Sodium 1 Tablet PO ×2 (05:20→17:31)
[2018-05-23] MEDS: amLODIPine 5 MG Tablet PO (05:20)
[2018-05-23] MEDS: Pantoprazole Sodium 40 MG Tablet PO (05:20)
[2018-05-23] MEDS: Umeclidinium Bromide Inhaler 1 PUFF IH (05:21)
[2018-05-23 06:50] LABS: Bedside Glucose 156 mg/dL (70-110)
[2018-05-23] MEDS: Aspirin E.C. 81 MG Tablet PO (08:47)
[2018-05-23] MEDS: Multivitamins,Therapeutic Tablet 1 TABLET PO (08:47)
[2018-05-23] MEDS: Iron Polysaccharide Complex 150 MG CAPSULE PO ×2 (08:47→17:32)
[2018-05-23] MEDS: Ipratropium/Albuterol Sulfate 3 ML AMPUL.NEB INHALATION (10:51)
--- NOTE | 2018-05-23 11:34 | CASEMGMT ---
Addendum entered by Qiana Hickman 05/23/18 13:32: Resident now requesting for discharge date to be set for 05/25/18. team is agreeable to discharge date change. Resident plans to discharge to home with spouse as noted below. Proposed discharge date: 05/25/18 PLAN: Discharge to home with spouse. Qiana BOSE, PRESS MACHINE OPERATOR Original Note: Social Work Spoke with resident in room. Resident requesting for discharge date to be set for 05/26/18. Spoke with team, 05/26/18 is an agreeable date at this time. Resident plans to discharge to home with spouse. Resident reporting to have home oxygen already set up within the home for continuous use. Resident spouse to provide transportation home for resident at time of discharge. Resident reporting no durable medical equipment needs at this time other then possibly a nebulizer if resident is prescribed continued breathing treatment at home. Resident declining for this long term care social worker to contact resident spouse in regards to discharge date/plan. Resident planning to contact resident spouse in regards to discharge plan. Support given. Telephone call to Marc to inquire about whether or not a nebulizer would be covered for resident. Sofy is looking into this and will get back to this long term care social worker. Proposed discharge date: 05/26/18 PLAN: Discharge to home with spouse. No further therapy is being recommended at this time. Qiana BOSE, PRESS MACHINE OPERATOR
--- NOTE | 2018-05-23 14:54 | PCM.DC ---
- Discharge Diagnoses Current Active Problems: Current Active and Chronic Problems Acute respiratory failure (Acute) Shortness of breath (Acute) HCAP (healthcare-associated pneumonia) (Acute) Recurrent pleural effusion on right (Chronic) Hypertriglyceridemia (Chronic) Systolic and diastolic CHF, acute on chronic (Acute) Chronic kidney disease (Chronic) Diabetes mellitus (Chronic) You will use the following diet at home:: No restrictions, Regular Your food should be the consistency of: Regular Your liquids should be the consistency of: Regular/Thin Discharge Activity: Return to Normal Activity, May Shower, Use Walker Weight Bearing Status: Weight bearing as tolerated Call your doctor if you observe: Fever of 101 or Higher, Inability to urinate, Inability to have a bowel movement, Shortness of breath, Chest pain, Uncontrolled pain Allergies/Adverse Reactions: Allergies bacitracin Allergy (Verified 05/16/18 17:25) Rash rosuvastatin [From Crestor] Adverse Reaction (Verified 05/16/18 17:25) Upset Stomach Medications to take at Discharge Amlodipine [Norvasc] 5 mg PO DAILY 05/16/18 Aspirin E.C. [Ecotrin] 81 mg PO DAILY@0800 05/16/18 Atorvastatin Calcium [Lipitor] 40 mg PO QHS 05/16/18 Carvedilol [Coreg (Beta Shayna)] 6.25 mg PO BID 05/16/18 Doxazosin Mesylate [Cardura] 4 mg PO QHS 05/16/18 Furosemide 40 mg PO DAILY 05/16/18 Hydralazine HCl 75 mg PO TID 05/16/18 Multivitamin [Daily Multiple Vitamin] 1 each PO DAILY 05/16/18 Pantoprazole Sodium 40 mg PO DAILY 05/16/18 Tiotropium [place] [Spiriva] 18 mcg IH DAILY 05/16/18 Acetaminophen [Tylenol] 1,000 mg PO Q8H PRN PRN tablet 05/23/18 Ipratropium/Albuterol Sulfate [Duoneb] 3 ml INHALATION Q2H PRN PRN #60 ampul.neb 05/23/18 Iron Polysaccharide Complex [Ferrex 150] 150 mg PO BIDCM #30 cap 05/23/18 Loratadine [Claritin] 10 mg PO DAILY tablet 05/23/18 The following prescriptions were given: Ipratropium/Albuterol Sulfate [Duoneb] 3 ml INHALATION Q2H PRN PRN #60 ampul.neb PRN Reason: Sob &/Or Wheezing Iron Polysaccharide Complex [Ferrex 150] 150 mg PO BIDCM #30 cap Primary Care Physician: Primo Barroso MD [Primary Care Provider] - Please follow up with your Primary Care Physician in: 1 week. Test Results: Test results from this visit will be discussed in further detail at your follow-up appointment, if applicable. Please Follow Up With: Nathalie Garland (guillotine trimmer) When: [phone] Please Follow Up With: Carlos DAVID Hematology When: 2 weeks. Please Follow Up With: Carlos DAVID Cardiology When: 2 weeks. Please Follow Up With: Carlos DAVID Hematology Please Follow Up With: Carlos DAVID Hematology Please Follow Up With: Dr Barroso/[facility] When: 1 week follow up Proposed Discharge Date: 05/25/18
--- NOTE | 2018-05-23 14:58 | DS.PCM_ITS ---
Discharge Date and Diagnosis - Problem List Patient Problems: Active and Suspected Problems Acute respiratory failure (Acute) Shortness of breath (Acute) HCAP (healthcare-associated pneumonia) (Acute) Systolic and diastolic CHF, acute on chronic (Acute) Date of Admission: 05/16/18 Date of Discharge: 05/25/18 - Primary Discharge Diagnosis Active and Suspected Problems Acute respiratory failure (Acute) Shortness of breath (Acute) HCAP (healthcare-associated pneumonia) (Acute) Systolic and diastolic CHF, acute on chronic (Acute) - Secondary Discharge Diagnosis Chronic Problems Recurrent pleural effusion on right (Chronic) Hypertriglyceridemia (Chronic) Chronic kidney disease (Chronic) Diabetes mellitus (Chronic) Type 2 diabetes mellitus (Chronic) Obesity (Chronic) Hypertension (Chronic) History of tobacco use (Chronic) Hospital Course and Treatment Imaging Results: 05/16/18 17:18 Diet: Regular Diet Clinical Impression(s) from Imaging Studies Chest X-Ray 05/21/18 18:15 IMPRESSION: Bilateral perihilar and bibasilar atelectasis or infiltrate. Bilateral small pleural effusions. Electronically Signed: Cy Walter MD at 21:24 EDT , Service support , Labs (Last 48 Hours) 05/22/18 05/23/18 06:43 06:05 POC Glucose 130 H 156 H Consultations 05/20/18 07:00 Consult: Onc/Wound/mannequin wig maker Routine Comment: wound with depth to sole of right foot near front Operations: None Procedures: None Summary of Care Provided: The patient is a 67 year old Male with below past medical history hospitalized for acute respiratory failure from acute on chronic systolic diastolic heart failure, right lower lobe healthcare associated pneumonia, admitted to TCU with debility, here for rehabilitation, strengthening, prior to discharge home with spouse. Discharge home with spouse, no further therapy recommended at this time. Patient Problems: Active and Suspected Problems Acute respiratory failure (Acute) Shortness of breath (Acute) HCAP (healthcare-associated pneumonia) (Acute) Systolic and diastolic CHF, acute on chronic (Acute) - Physical Exam Vital Signs Temp Pulse Resp BP Pulse Ox 98.2 F 63 22 H 142/69 H 95 05/22/18 21:04 05/23/18 13:18 05/23/18 10:51 05/23/18 13:18 05/23/18 11:13 Oxygen Flow Rate (L/min) 3 Oxygen Delivery Method Nasal Cannula Weight: 107.671 kg Body Mass Index (BMI) 32.4 Intake and Output for Last 24 Hours 05/21/18 05/22/18 05/23/18 23:59 23:59 23:59 Intake Total 1140 / 1140 1200 / 1200 560 / 560 Output Total 600 / 600 600 / 600 Balance 540 / 540 600 / 600 560 / 560 POC Glucose 05/23/18 06:05 POC Glucose 156 H Discharge Diet: No Restrictions Discharge Activity: Return to Normal Activity, May Shower, Use Walker Weight Bearing Status: Weight bearing as tolerated Call your doctor if you observe: Fever of 101 or Higher, Inability to urinate, Inability to have a bowel movement, Shortness of breath, Chest pain, Uncontrolled pain Home Medications: Medications to take at Discharge Amlodipine [Norvasc] 5 mg PO DAILY 05/16/18 Aspirin E.C. [Ecotrin] 81 mg PO DAILY@0800 05/16/18 Atorvastatin Calcium [Lipitor] 40 mg PO QHS 05/16/18 Carvedilol [Coreg (Beta Shayna)] 6.25 mg PO BID 05/16/18 Doxazosin Mesylate [Cardura] 4 mg PO QHS 05/16/18 Furosemide 40 mg PO DAILY 05/16/18 Hydralazine HCl 75 mg PO TID 05/16/18 Multivitamin [Daily Multiple Vitamin] 1 each PO DAILY 05/16/18 Pantoprazole Sodium 40 mg PO DAILY 05/16/18 Tiotropium [place] [Spiriva] 18 mcg IH DAILY 05/16/18 Acetaminophen [Tylenol] 1,000 mg PO Q8H PRN PRN tablet 05/23/18 Ipratropium/Albuterol Sulfate [Duoneb] 3 ml INHALATION Q2H PRN PRN #60 ampul.neb 05/23/18 Iron Polysaccharide Complex [Ferrex 150] 150 mg PO BIDCM #30 cap 05/23/18 Loratadine [Claritin] 10 mg PO DAILY tablet 05/23/18 Following Prescrptions Were Given to Patient: Ipratropium/Albuterol Sulfate [Duoneb] 3 ml INHALATION Q2H PRN PRN #60 ampul.neb PRN Reason: Sob &/Or Wheezing Iron Polysaccharide Complex [Ferrex 150] 150 mg PO BIDCM #30 cap Primary Care Physician: Primo Barroso MD [Primary Care Provider] - Please follow up with your Primary Care Physician in: 1 week. Please Follow Up With: Nathalie Garland (public relations supervisor) When: [phone] Please Follow Up With: Carlos DAVID Hematology When: 2 weeks. Please Follow Up With: Carlos DAVID Cardiology When: 2 weeks. Please Follow Up With: Carlos DAVID Hematology Please Follow Up With: Carlos DAVID Hematology Please Follow Up With: Dr Barroso/[facility] When: 1 week follow up Disposition: Home Minutes spent on discharge:: 30 Patient Condition:: Stable Medical Necessity - Tobacco Use Smoking Status: Former smoker Tobacco Use: Cigarettes - Quit 09/20/2000. Meaningful Use Info Meaningful Use Diagnoses (Choose all that apply): None applicable
--- NOTE | 2018-05-23 15:04 | CASEMGMT ---
Social Work Resident with discharge to home with arousals for breathing treatments. Telephone call from Sofy Tran. Sofy reporting that nebulizer will not be covered by resident insurance. Spoke with resident and resident spouse in room. This director social providing resident with a script for the nebulizer. Resident planning to pay private pay to obtain nebulizer through [facility]. Resident voicing no further needs. Proposed discharge date: 05/25/18 PLAN: Discharge to home with spouse. Qiana BOSE, CONSUMER SAFETY OFFICER
[2018-05-23] MEDS: Atorvastatin Calcium 40 MG Tablet PO (20:45)
[2018-05-23] MEDS: Doxazosin 4 MG Tablet PO (20:46)
[2018-05-24] MEDS: Loratadine 10 MG Tablet PO (06:26)
[2018-05-24] MEDS: Carvedilol 6.25 MG Tablet PO ×2 (06:26→17:02)
[2018-05-24] MEDS: Enoxaparin 40 MG/0.4 ML Syringe SC (06:26)
[2018-05-24] MEDS: Umeclidinium Bromide Inhaler 1 PUFF IH (06:26)
[2018-05-24 06:27] VITALS: BP 148/54; PULSE 64
[2018-05-24] MEDS: hydrALAZINE 25 MG Tablet 75 MG PO ×3 (06:27→20:21)
[2018-05-24] MEDS: Furosemide 40 MG Tablet PO (06:27)
[2018-05-24] MEDS: Pantoprazole Sodium 40 MG Tablet PO (06:27)
[2018-05-24] MEDS: Senna/Docusate Sodium 1 Tablet PO ×2 (06:27→17:02)
[2018-05-24] MEDS: amLODIPine 5 MG Tablet PO (06:27)
[2018-05-24 07:11] LABS: Bedside Glucose 141 mg/dL (70-110)
[2018-05-24 08:15] VITALS: O2SAT 96
[2018-05-24 08:19] LABS: Absolute Lymphocyte Count 0.49 X10^3/ul (0.83-4.51); Absolute Neutrophil Count 4.5 X10^3/uL (2.0-7.7); Basophil# 0.04 X10^3/uL; Basophil% 0.7 % (0-1); Eosinophil# 0.39 X10^3/uL; Eosinophils% 6.4 % (0-5); Hematocrit 27.8 % (40-54); Hemoglobin 8.2 g/dl (13.0-16.5); Lymphocyte # 0.49 X10^3/ul (4.0); Mean Corp Hgb Conc 29.5 g/gl (32-36); Mean Corpuscular Volume 101.8 fL (80-94); Mean Platelet Vol. 12.1 fl (6.2-12.0); Monocyte# 0.61 X10^3/uL; Neutrophil # 4.54 X10^3/uL (2.7-7.7); Neutrophil % 74.6 % (47-70); Platelet Count 163 K/mm3 (150-450); RBC Distribution Width CV 15.7 % (11.6-14.6); Red Blood Count 2.73 M/mm3 (4.6-6.2); White Blood Count 6.1 K/mm3 (4.4-11.0)
[2018-05-24 08:21] LABS: Differential Indicated SCAN CRITERIA MET; POSITIVE COUNT NO; POSITIVE DIFFERENTIAL YES; POSITIVE MORPHOLOGY NO
[2018-05-24 08:29] LABS: Anion Gap 8 (5-15); BUN 44 mg/dL (7-18); BUN/Creat Ratio 21.3 RATIO (10-20); Calcium,Total 8.3 mg/dL (8.5-10.1); Chloride 110 mmol/L (98-107); Creatinine, Serum 2.07 mg/dL (0.70-1.30); EST Glomerular Filtration Rate 34 mL/min (>60); Est Glom Filt Rate - Afr Amer 42 mL/min (>60); Estimated Creatinine Clearance 39.05 ml/min; Glucose 149 mg/dL (74-106); Potassium 4.8 mmol/L (3.5-5.1); Sodium Level 145 mmol/L (136-145)
[2018-05-24 08:34] LABS: Basophilic Stippling 1+; Hypochromasia 1+; Platelet Estimate ADEQUATE (ADEQ); Polychromasia 1+
[2018-05-24] MEDS: Aspirin E.C. 81 MG Tablet PO (08:41)
[2018-05-24] MEDS: Iron Polysaccharide Complex 150 MG CAPSULE PO ×2 (08:41→17:02)
[2018-05-24] MEDS: Multivitamins,Therapeutic Tablet 1 TABLET PO (08:41)
[2018-05-24] MEDS: Tuberculin,Purif.prot.deriv. 50 TU/ML Vial 5 ML ID (09:34)
[2018-05-24 13:34] VITALS: BP 147/52; PULSE 68
[2018-05-24 15:21] VITALS: BP 154/64; PULSE 72; RESP 20; TEMP 36.8; O2SAT 94
[2018-05-24] MEDS: Acetaminophen 500 MG Tablet 1000 MG PO (17:03)
[2018-05-24 20:21] VITALS: BP 157/71; PULSE 59
[2018-05-24] MEDS: Doxazosin 4 MG Tablet PO (20:23)
[2018-05-24] MEDS: Atorvastatin Calcium 40 MG Tablet PO (20:23)
[2018-05-25] MEDS: Enoxaparin 40 MG/0.4 ML Syringe SC (06:14)
[2018-05-25] MEDS: Pantoprazole Sodium 40 MG Tablet PO (06:14)
[2018-05-25 06:15] VITALS: BP 135/62; PULSE 65
[2018-05-25] MEDS: amLODIPine 5 MG Tablet PO (06:15)
[2018-05-25] MEDS: hydrALAZINE 25 MG Tablet 75 MG PO (06:15)
[2018-05-25] MEDS: Carvedilol 6.25 MG Tablet PO (06:15)
[2018-05-25] MEDS: Furosemide 40 MG Tablet PO (06:15)
[2018-05-25] MEDS: Loratadine 10 MG Tablet PO (06:15)
[2018-05-25] MEDS: Senna/Docusate Sodium 1 Tablet PO (06:17)
[2018-05-25] MEDS: Umeclidinium Bromide Inhaler 1 PUFF IH (06:18)
[2018-05-25 06:38] VITALS: O2SAT 94
[2018-05-25 07:06] LABS: Bedside Glucose 138 mg/dL (70-110)
[2018-05-25 08:12] VITALS: O2SAT 92
[2018-05-25] MEDS: Aspirin E.C. 81 MG Tablet PO (08:30)
[2018-05-25] MEDS: Multivitamins,Therapeutic Tablet 1 TABLET PO (08:30)
[2018-05-25] MEDS: Iron Polysaccharide Complex 150 MG CAPSULE PO (08:31)
[2018-05-25 11:20] VITALS: BP 159/51; PULSE 68; RESP 18; TEMP 36.4; O2SAT 92
--- NOTE | 2018-05-28 12:41 | MDS.RN ---
Information for the mds was obtained from review of the clinical record, interview of resident, staff, and direct observation of resident's care.
== END 2018-05-25 11:20 | disposition home or self-care (01) | DRG 947 ==
PROVIDERS: Admitting Provider Family Medicine Geriatric Medicine; Family Provider Internal Medicine; PCP Internal Medicine; Referring Provider Family Medicine Geriatric Medicine; Visit Provider Family Medicine Geriatric Medicine
DX: R53.81 Other malaise (principal); I50.43 Acute on chronic combined systolic (congestive) and diastolic (congestive) heart failure; J96.21 Acute and chronic respiratory failure with hypoxia; I13.0 Hypertensive heart and chronic kidney disease with heart failure and stage 1 through stage 4 chronic kidney disease, or unspecified chronic kidney disease; D50.9 Iron deficiency anemia, unspecified; N40.0 Benign prostatic hyperplasia without lower urinary tract symptoms; K21.9 Gastro-esophageal reflux disease without esophagitis; F32.9 Major depressive disorder, single episode, unspecified; E78.5 Hyperlipidemia, unspecified; N18.9 Chronic kidney disease, unspecified; E11.22 Type 2 diabetes mellitus with diabetic chronic kidney disease; E66.9 Obesity, unspecified; Z68.32 Body mass index [BMI] 32.0-32.9, adult; Z71.3 Dietary counseling and surveillance; I25.10 Atherosclerotic heart disease of native coronary artery without angina pectoris; Z87.01 Personal history of pneumonia (recurrent); Z99.81 Dependence on supplemental oxygen; Z87.891 Personal history of nicotine dependence
CPT/HCPCS: 36415; 71046; 80048; 82962; 85025; 94640; 97110; 97116; 97162; 97166; 97530; 97535

== ENCOUNTER 2018-05-26 18:22 | Inpatient (IN) | payer MEDICARE, SELFPAY ==
[2018-05-26] VITALS (13 sets, daily range): BP systolic 162–188; BP diastolic 59–81; PULSE 69–85; RESP 18–34; TEMP 36.4–36.9; O2SAT 91–100; BMI 33.5; BMI 33.2
--- NOTE | 2018-05-26 18:40 | EKG12_ITS ---
Test Reason : SOB Blood Pressure : / mmHG Vent. Rate : 078 BPM Atrial Rate : 078 BPM P-R Int : 142 ms QRS Dur : 100 ms QT Int : 382 ms P-R-T Axes : 026 015 067 degrees QTc Int : 435 ms Normal sinus rhythm Low voltage QRS Septal infarct , age undetermined , cannot be excluded Abnormal ECG Confirmed by SHARONDA LEÓN, DAVID ([id number]), manuscript editor JOSE CHRISTENSEN ([id number]) on 05/29/2018 11:33:20 AM Referred By: ED PHYSICIAN Confirmed By:DAVID MCDONOUGH MD
--- NOTE | 2018-05-26 19:05 | RAD_ITS ---
STUDY: X-RAY CHEST REASON FOR EXAM: Male, 67 years old. Shortness of breath TECHNIQUE: Single AP portable view of the chest. COMPARISON: May 21, 2018 chest x-ray FINDINGS: Is worsening opacity of the lower lobes. There is patchy groundglass opacity developing in the right upper lobe. There is moderate cardiac enlargement. Normal mediastinum and luke. Normal visualized pulmonary arteries. Normal visualized aortic arch and descending thoracic aorta. There are diffuse degenerative changes of the visualized thoracic spine. Normal visualized ribs, clavicles, and shoulders. There is no demonstrated abnormality of the visualized soft tissue structures of the upper abdomen. RAD/Chest 1 View (Portable) IMPRESSION: Worsening bilateral lower lobe opacity. Findings suspicious for worsening large bilateral effusions and/or consolidation. Electronically Signed: Michelle Bowman MD at 19:18 EDT Tel , Service support ,
[2018-05-26 19:46] LABS: Absolute Lymphocyte Count 0.45 X10^3/ul (0.83-4.51); Absolute Neutrophil Count 5.9 X10^3/uL (2.0-7.7); Basophil# 0.02 X10^3/uL; Basophil% 0.3 % (0-1); Eosinophils% 5.5 % (0-5); Hematocrit 29.9 % (40-54); Lymphocyte # 0.45 X10^3/ul (4.0); Lymphocyte % 6.1 % (19-41); Mean Corp Hgb Conc 30.1 g/gl (32-36); Mean Corpuscular Hgb 30.6 pg (27.0-32.0); Mean Corpuscular Volume 101.7 fL (80-94); Mean Platelet Vol. 12.2 fl (6.2-12.0); Monocyte# 0.59 X10^3/uL; Monocyte% 8.1 % (0-10); Neutrophil # 5.85 X10^3/uL (2.7-7.7); Neutrophil % 79.9 % (47-70); Platelet Count 166 K/mm3 (150-450); RBC Distribution Width CV 15.6 % (11.6-14.6); RBC Distribution Width SD 56.8 fl (35.1-43.9); Red Blood Count 2.94 M/mm3 (4.6-6.2); White Blood Count 7.3 K/mm3 (4.4-11.0)
[2018-05-26 20:00] LABS: ALB/GLOB Ratio 0.8 RATIO (0.9-2.4); AST(SGOT) 12 U/L (15-37); Alanine Aminotransfer ALT/SGPT 22 U/L (16-61); Albumin, Serum 2.6 g/dL (3.2-5.0); Alkaline Phosphatase 93 U/L (45-117); Anion Gap 7 (5-15); BUN 41 mg/dL (7-18); BUN/Creat Ratio 21.6 RATIO (10-20); Calcium,Total 8.5 mg/dL (8.5-10.1); Chloride 110 mmol/L (98-107); EST Glomerular Filtration Rate 38 mL/min (>60); Est Glom Filt Rate - Afr Amer 46 mL/min (>60); Estimated Creatinine Clearance 42.54 ml/min; Globulin 3.4 g/dL (2.2-4.2); Glucose 197 mg/dL (74-106); Potassium 4.9 mmol/L (3.5-5.1); Sodium Level 143 mmol/L (136-145)
[2018-05-26 20:34] LABS: Differential Indicated SCAN CRITERIA MET; POSITIVE COUNT NO; POSITIVE DIFFERENTIAL YES; POSITIVE MORPHOLOGY NO
[2018-05-26 20:35] LABS: Red Cell Morphology N CHROM NORMAL (NORM C&C)
[2018-05-26 20:36] LABS: Platelet Estimate ADEQUATE (ADEQ)
--- NOTE | 2018-05-26 21:15 | ED.DCSUM_ITS ---
- ER Visit Summary Date of Service: 05/26/18 Chief Complaint: Shortness of breath History of Present Illness: The patient is a 67 M with history of pleural effusions he has a permanent drain in his right thorax. It is unable to drain and his breathing is getting worse. No fever or chills. No chest pain. He has a cough which is chronic. He has no abdominal pain. Physical Examination: He appears in some respiratory distress Moist mucous membranes, no obvious facial deformity No C-spine tenderness supple neck. Regular rate and rhythm without any obvious murmurs Patient has tachypnea, his breath sounds are diminished bibasilar regions. He has rhonchi and rales. Right chest wall shows a drain which is intact however not draining. Abdomen soft and nontender no guarding or rebound Moves all extremities without any difficulty or pain. Skin does not show any obvious rashes or lesions, no trauma. Alert oriented ?3 with no gross focal deficit Emergency Department Course and Treatment: I attempted to drain his tube after I obtained the proper drain from rehab, I was unable to. Chest x-ray shows infiltrates and effusions. Lasix was given. Patient was on 6 L of oxygen and then had to be moved to a Ventimask, because his respiratory status is worsening I talked to the hospitalist for admission to the intensive care unit. At this time he is quite stable on a Ventimask however I am worried about progression. He does not exhibit any signs or symptoms of pneumonia. Antibiotics were not started. This is likely fluid overload status. Admit to ICU in guarded condition Impression: CHF Pleural effusions Respiratory distress Clinical care time 30 minutes This note was generated with [employer] dictation software. It may contain incorrect words, spelling, and punctuation that were not noted in review of the chart prior to signing ED Disposition - Plan for ED Patient: Chief Complaint: Shortness of Breath Referrals: Primo Barroso MD [Primary Care Provider] -
[2018-05-26] MEDS: Furosemide 40 MG/4 ML Vial IV (21:30)
--- NOTE | 2018-05-26 21:48 | PCM.HP.STD ---
Problem List (1) Acute respiratory failure Status: Acute Qualifiers: Respiratory failure complication: hypoxia Qualified Code(s): J96.01 - Acute respiratory failure with hypoxia (2) Shortness of breath Status: Acute (3) Recurrent pleural effusion on right Status: Chronic (4) Systolic and diastolic CHF, acute on chronic Status: Acute (5) Chronic kidney disease Status: Chronic (6) Diabetes mellitus Status: Chronic (7) Obesity Status: Chronic (8) Hypertension Status: Chronic (9) History of tobacco use Status: Chronic History of Present Illness Date of Admission: 05/26/18 Chief Complaint: shortness of breath The patient is a 67 year old male patient with a significant past medical history of CHF, and diabetes who presents to the ER with one day of worsening shortness of breath. He was recently discharged from out transitional care unit but the state his chest drain has not been adequately functioning since he returned home. The patient denies chest pain but has had increase oxygen demand since arriving to the ER now requiring a non rebreather mask to maintain his oxygenation above 90%. Diuresis by lasix was initiated in the ER. He will be admitted to ICU to monitor his oxygen / respiratory function and evaluation of chest catheter for function and possible replacement. Past Medical History Past Medical History (Chronic Problems): Chronic Problems Recurrent pleural effusion on right (Chronic) Hypertriglyceridemia (Chronic) Chronic kidney disease (Chronic) Diabetes mellitus (Chronic) Type 2 diabetes mellitus (Chronic) Obesity (Chronic) Hypertension (Chronic) History of tobacco use (Chronic) Allergies bacitracin Allergy (Verified 05/16/18 17:25) Rash rosuvastatin [From Crestor] Adverse Reaction (Verified 05/16/18 17:25) Upset Stomach Home Medications: Ambulatory Orders Medication Instructions Recorded Amlodipine [Norvasc] 5 mg PO DAILY 05/16/18 Aspirin E.C. [Ecotrin] 81 mg PO DAILY@0800 05/16/18 Atorvastatin Calcium [Lipitor] 40 mg PO QHS 05/16/18 Carvedilol [Coreg (Beta Shayna)] 6.25 mg PO BID 05/16/18 Doxazosin Mesylate [Cardura] 4 mg PO QHS 05/16/18 Furosemide 40 mg PO DAILY 05/16/18 Hydralazine HCl 75 mg PO TID 05/16/18 Multivitamin [Daily Multiple 1 each PO DAILY 05/16/18 Vitamin] Pantoprazole Sodium 40 mg PO DAILY 05/16/18 Tiotropium [place] [Spiriva] 18 mcg IH DAILY 05/16/18 Acetaminophen [Tylenol] 1,000 mg PO Q8H PRN PRN tablet 05/23/18 Ipratropium/Albuterol Sulfate 3 ml INHALATION Q2H PRN PRN #60 05/23/18 [Duoneb] ampul.neb Iron Polysaccharide Complex 150 mg PO BIDCM #30 cap 05/23/18 [Ferrex 150] Loratadine [Claritin] 10 mg PO DAILY tablet 05/23/18 Surgical History: cholecystectomy, herniorrhaphy, - - Right toes amputation, right Pleurex catheter insertion. Psychiatric History: No pertinent psych hx Smoking Status: Former smoker - *Family History Maternal History Items: Cancer - breast., Diabetes, Heart Disease Paternal History Items: Diabetes, Heart Disease Review of Systems Constitutional: Denies: Chills, Fever, Weight Change HEENT: Denies: Head Aches, Sinus Congestion, Sinus Drainage Cardiovascular: Denies: Chest Pain, Palpitations Respiratory: Reports: Shortness of breath at rest. Denies: Cough, Sputum production Gastrointestinal: Denies: Abdominal Pain, Nausea, Vomiting Genitourinary: Denies: Dysuria Musculoskeletal: Denies: Joint Pain, Joint Tenderness Skin: Denies: Rash, Wounds Neurological: Denies: Numbness, Tingling, Focal weakness Psychiatric: Denies: Anxiety, Depression, Homicidal Ideations, Suicidal Ideations Hematologic/ Lymphatic: Denies: Easy Bruising, Easy Bleeding VTE Information - Inpt Only VTE Present on Admission: No VTE Mechan Device Prophylaxis: None VTE Pharm Prophylaxis ordered?: Yes - Physical Exam General: Alert, Oriented x3, Cooperative HEENT: Atraumatic, Normocephalic Neck: Supple, Negative Carotid Bruits Lungs: No rhonchi, No wheeze, No rales, Diminished Cardiovascular: Regular rate, Normal S1, Normal S2, No murmurs Abdomen: Bowel Sounds Present, Soft, Non Tender Extremities: No edema, Capillary Refill Less than 3 Seconds Skin: No rashes, Ulcer/ Wound - left foot (hx of toe amputations) Musculoskeletal: No Tenderness to Palpation of Joints or Extremities Neurological: Neuro grossly intact Psych/Mental Status: Normal Affect, Appropriate Vital Signs Temp Pulse Resp BP Pulse Ox 98.4 F 74 20 H 177/67 H 96 05/26/18 18:23 05/26/18 21:00 05/26/18 21:00 05/26/18 21:00 05/26/18 21:00 Oxygen Flow Rate (L/min) 15 Oxygen Delivery Method Non-Rebreather Weight: 247 lb 8.207 oz Body Mass Index (BMI) 33.5 Laboratory Tests Past 24 Hrs 05/26/18 05/26/18 18:47 18:47 WBC 7.3 RBC 2.94 L Hgb 9.0 L Hct 29.9 L MCV 101.7 H MCH 30.6 MCHC 30.1 L RDW 15.6 H RDW Differential 56.8 H Plt Count 166 MPV 12.2 H Immature Gran % (Auto) 0.100 Neut % (Auto) 79.9 H Lymph % (Auto) 6.1 L [place] % (Auto) 8.1 Eos % (Auto) 5.5 H Baso % (Auto) 0.3 Absolute Neuts (auto) 5.9 Absolute Lymphs (auto) 0.45 L Total Counted Not Reportable Differential Comment Platelet Estimate ADEQUATE RBC Morphology N CHROM Sodium 143 Potassium 4.9 Chloride 110 H Carbon Dioxide 26.0 Anion Gap 7 BUN 41 H Creatinine 1.90 H Estim Creat Clear Calc 42.54 Est GFR (MDRD) Af Amer 46 L Est GFR (MDRD) Non-Af 38 L BUN/Creatinine Ratio 21.6 H Glucose 197 H Calcium 8.5 Total Bilirubin 0.40 AST 12 L ALT 22 Alkaline Phosphatase 93 Total Protein 6.0 L Albumin 2.6 L Globulin 3.4 Albumin/Globulin Ratio 0.8 L Assessment/Plan All Active Problems Acute respiratory failure (Acute) Shortness of breath (Acute) HCAP (healthcare-associated pneumonia) (Acute) Systolic and diastolic CHF, acute on chronic (Acute) Plan - admit to ICU - Consult Dr Orozco - cbc, bmp in am - lasix 40mg IV BID - continue routine home medications - consider BIPAP if o2 demand increases - LMWH for DVT prophylaxis Code Visit Inpatient E&M: 42555 Init Hosp L3
[2018-05-26 23:07] LABS: Magnesium 2.1 mg/dL (1.6-2.6)
[2018-05-26 23:08] LABS: Prothrombin Time (Protime)PT. 13.6 SECONDS (11.7-14.9)
[2018-05-26 23:21] LABS: BNP,B-Type NATRIURETIC PEPTIDE 181.1 pg/mL (0-100)
[2018-05-26] MEDS: hydrALAZINE 20 MG/ML Vial IV (23:51)
[2018-05-26] MEDS: 0.9% NaCl Peripheral Flush Adult/Peds IV (23:51)
[2018-05-27] VITALS (25 sets, daily range): BP systolic 143–178; BP diastolic 54–71; PULSE 60–79; RESP 13–23; TEMP 36.4–37.1; O2SAT 93–100
[2018-05-27 03:45] LABS: Absolute Neutrophil Count 4.8 X10^3/uL (2.0-7.7); Basophil# 0.03 X10^3/uL; Basophil% 0.5 % (0-1); Eosinophil# 0.33 X10^3/uL; Eosinophils% 5.2 % (0-5); Hematocrit 27.4 % (40-54); Hemoglobin 8.2 g/dl (13.0-16.5); Lymphocyte % 7.9 % (19-41); Mean Corp Hgb Conc 29.9 g/gl (32-36); Mean Corpuscular Hgb 30.5 pg (27.0-32.0); Mean Corpuscular Volume 101.9 fL (80-94); Mean Platelet Vol. 11.3 fl (6.2-12.0); Monocyte# 0.67 X10^3/uL; Monocyte% 10.6 % (0-10); Neutrophil # 4.76 X10^3/uL (2.7-7.7); Neutrophil % 75.6 % (47-70); Platelet Count 162 K/mm3 (150-450); RBC Distribution Width CV 15.5 % (11.6-14.6); RBC Distribution Width SD 55.6 fl (35.1-43.9); Red Blood Count 2.69 M/mm3 (4.6-6.2); White Blood Count 6.3 K/mm3 (4.4-11.0)
[2018-05-27 03:56] LABS: Differential Indicated SCAN CRITERIA MET; POSITIVE COUNT NO; POSITIVE DIFFERENTIAL YES; POSITIVE MORPHOLOGY NO
[2018-05-27 04:05] LABS: Anion Gap 6 (5-15); BUN 39 mg/dL (7-18); BUN/Creat Ratio 22.4 RATIO (10-20); Calcium,Total 8.3 mg/dL (8.5-10.1); Chloride 114 mmol/L (98-107); Cholesterol 105 mg/dL (200); Creatinine, Serum 1.74 mg/dL (0.70-1.30); EST Glomerular Filtration Rate 42 mL/min (>60); Est Glom Filt Rate - Afr Amer 51 mL/min (>60); Estimated Creatinine Clearance 46.46 ml/min; Glucose 126 mg/dL (74-106); High Density Lipoprotein 35 mg/dL; Potassium 4.9 mmol/L (3.5-5.1); Sodium Level 146 mmol/L (136-145); Triglycerides 99 mg/dL; Very Low Density Lipoprotein 20 mg/dL (5-40)
[2018-05-27 04:48] LABS: Differential Comment SCANNED
--- NOTE | 2018-05-27 05:55 | ECHOCS_ITS ---
Reason For Study: CHF Procedure This was a 2D Doppler, Color Flow transthoracic echocardiogram. The study was technically difficult. Contrast injection was performed. PT scanned in sitting position due to being unable to lie down. Exam performed portable in ICU/CCU. Left Ventricle Mildly dilated left ventricle. Moderate concentric left ventricular hypertrophy. Left ventricular systolic function is normal. The estimated ejection fraction is 60 %. No regional wall motion abnormalities noted. Right Ventricle Normal RV size. Normal systolic function. Atria The left atrium is mildly enlarged. Normal right atrium. No doppler evidence for ASD. Mitral Valve There is no mitral annular calcification. Mild diffuse mitral valve thickening. Trivial mitral valve insufficiency. Tricuspid Valve Normal tricuspid valve. Trivial tricuspid valve insufficiency. Unable to estimate RV systolic pressure/pulmonary artery pressure due to technically difficult study. Aortic Valve Trisinus/trileaflet aortic valve. Normal aortic valve. Pulmonic Valve The pulmonic valve is not well visualized. Great Vessels Borderline enlarged aortic root. Pericardium/Pleural No pericardial effusion. Echolucency c/w a pleural effusion. MMode/2D Measurements & Calculations LVIDd: 6.2 cm IVSd: 1.3 cm Ao root diam: 3.8 cm LVIDs: 4.2 cm LVPWd: 1.6 cm LA dimension: 4.7 cm FS: 31.7 % LAV(MOD-bp): 109.1 ml LA A4 area: 27.7 cm2 RA A4 area: 20.6 cm2 LAV(MOD-bp) Indexed: 47.0 ml/m2 LAV(MOD-sp2): 101.2 ml LAV(MOD-sp4): 108.2 ml Doppler Measurements & Calculations MV E max kana: 140.7 cm/sec Lat Peak E' Kana: 8.5 cm/sec Med Peak E' Kana: 6.0 cm/sec MV A max kana: 96.7 cm/sec E/E' lat: 16.5 E/E' med: 23.4 MV E/A: 1.5 Ao V2 max: 160.3 cm/sec LV V1 max: 96.9 cm/sec PA V2 max: 143.9 cm/sec Ao max P.3 mmHg LV V1 max P.8 mmHg Interpretation Summary The study was technically difficult. Contrast injection was performed. Mildly dilated left ventricle. Left ventricular systolic function is normal. The estimated ejection fraction is 60 %. Moderate concentric left ventricular hypertrophy. The left atrium is mildly enlarged. Mild diffuse mitral valve thickening. Trivial mitral valve insufficiency. Trivial tricuspid valve insufficiency. Borderline enlarged aortic root. Echolucency c/w a pleural effusion. Unable to estimate RV systolic pressure/pulmonary artery pressure due to technically difficult study. Transmitral diastolic flow velocities suggest diastolic dysfunction (pseudonormal pattern). Ordering Physician: Willy Etienne Referring Physician: Juan José Villegas Chi Performed By: Susie Rodriges RDCS, RVT
[2018-05-27] MEDS: hydrALAZINE 25 MG Tablet 75 MG PO ×3 (06:06→21:26)
[2018-05-27] MEDS: Ipratropium 0.5 MG/2.5 ML SOLUTION INHALATION (06:40)
[2018-05-27] MEDS: Acetaminophen 325 MG Tablet 650 MG PO ×2 (07:04→17:12)
--- NOTE | 2018-05-27 07:31 | CT_ITS ---
STUDY: CT CHEST/THORAX WITHOUT CONTRAST REASON FOR EXAM: Male, 67 years old. Shortness of breath, pleural effusions. History of hypertension, chronic kidney disease, diabetes. RADIATION DOSAGE (If Supplied By Facility): CTDIvol = ( 20.14 ) mGy, DLP = ( 972.71 ) mGycm TECHNIQUE: Transaxial imaging was performed without the administration of intravenous contrast material. Multiplanar coronal and sagittal images were reformatted. Individualized dose optimization techniques were used for this CT. COMPARISON: Portable AP upright chest x-ray May 26, 2018. FINDINGS: Right chest tube enters at the lateral right 7-8 rib interspace, and tracks along the superior margin of a moderate size basilar right pleural fluid accumulation. There is some additional fluid in the posterior medial right mid chest, the anteromedial right pleural recess, and in the right pleural fissures, but the lack of overtly dependent layering suggest the large component of this effusion is loculated. There is partial collapse in the right lung base, the chest tube lying between this collapsed lung and the pleural effusion. Subsegmental atelectasis also seen in the posterior right upper lobe and anteromedial right middle lobe. Subcentimeter calcified granuloma seen in the lateral inferior right lung base. On the left, there is a small to moderate pleural effusion with expected dependent positioning. There is airspace disease of probable partial collapse in the adjacent left lower lobe as well as in the lingula of left upper lobe. Active infection is not excluded. There is borderline to mild cardiac enlargement. There are calcifications of the coronary arteries. There are numerous borderline to mildly enlarged mediastinal and pericarinal lymph nodes. At least one precarinal lymph node shows macrocalcification. Adenopathy in the hilar regions not excluded, but difficult to ascertain without IV contrast. 2 small calcified lymph nodes are seen in the lateral right hilum. Normal unenhanced pulmonary arteries. There is mild atherosclerotic calcification of the aortic arch and descending thoracic aorta. There are multi-level bridging osteophytic degenerative changes of the thoracic spine. Degenerative arthrosis also noted at the sternomanubrial articulation. There are degenerative arthroses of the bilateral acromioclavicular joints. There are calcified granulomata in the spleen. 2.4 x 1.5 cm structure seen along the lateral margin of the upper to midpole of the right kidney on series 2 image 154. Its density of 25-30 Hounsfield units is more than expected for simple cyst, so a proteinaceous or hemorrhagic cyst versus solid parenchymal lesion could be considered. CT/Chest without Contrast IMPRESSION: 1. Moderate size, probably loculated right pleural effusion present, predominantly inferior to right basilar airspace disease with probable atelectasis. Active infection not excluded. A right chest tube is present, positioned between the basilar airspace disease and the pleural effusion. This tube may need repositioning or replacement to most effectively evacuated the pleural effusion. 2. Dependent small to moderate left pleural effusion also present. Airspace disease in the adjacent left lower lobe and lingula of left upper lobe is likely atelectasis, but again, infection is not excluded. 3. There is mediastinal adenopathy, likely reactive. 4. There are findings of old right calcified granulomatous disease. 5. Borderline to mild cardiac enlargement mild atherosclerotic calcifications of the coronary arteries and thoracic aorta. 6. 2.4 cm structure of indeterminate etiology at the lateral margin of the upper to midpole of the right kidney. This might be further characterized with ultrasound, IV contrast enhanced CT, or MRI. N.B. : The above information has been verbally conveyed by Jim Boland MD to Office nurse, NICOLÁS, on 05/27/2018 12:53:09 (ET). Electronically Signed: Jim Boland MD at 13:02 EDT , Service support ,
--- NOTE | 2018-05-27 08:29 | PCM.PN.HOSP ---
Patient Problems: Active and Suspected Problems Systolic and diastolic CHF, acute on chronic (Acute) Subjective: Has been short of breath since discharge from TCU. Has put on 4-5 # during that time. PleurX not draining. Apparently placed due to effusions d/t CHF. Vitals/I&O's: Vital Signs Temp Pulse Resp BP Pulse Ox 36.4 C L 70 17 165/54 H 96 05/27/18 04:00 05/27/18 07:29 05/27/18 07:00 05/27/18 07:00 05/27/18 07:00 Oxygen Flow Rate (L/min) 6 Oxygen Delivery Method Room Air Weight: 111 kg Body Mass Index (BMI) 33.2 Intake and Output for Last 24 Hours 05/25/18 05/26/18 05/27/18 23:59 23:59 23:59 Intake Total 40 / 40 Output Total 500 / 500 Balance -460 / -460 General: Alert, No apparent distress HEENT: Atraumatic, Normocephalic Oral: Moist Mucosa, No Gingival or Mucosal Lesions/ Ulcerations Neck: No Nuchal Rigidity, Thyroid Normal Size and Texture, JVD, Right Lungs: Diminished, - - coarse BS in bases. Cardiovascular: Regular rate, Regular Rhythm, Normal S1, Normal S2, No murmurs Abdomen: Bowel Sounds Present, Soft, Non Tender, Non-Distended, No Hepato-splenomegaly Extremities: No Calf Tenderness, Edema Skin: No rashes, No breakdown Psych/Mental Status: Appropriate, Flat Affect Laboratory Results 05/26/18 18:47: WBC 7.3, RBC 2.94 L, Hgb 9.0 L, Hct 29.9 L, MCV 101.7 H, MCH 30.6, MCHC 30.1 L, RDW 15.6 H, RDW Differential 56.8 H, Plt Count 166, MPV 12.2 H, Immature Gran % (Auto) 0.100, Neut % (Auto) 79.9 H, Lymph % (Auto) 6.1 L, [place] % (Auto) 8.1, Eos % (Auto) 5.5 H, Baso % (Auto) 0.3, Absolute Neuts (auto) 5.9, Absolute Lymphs (auto) 0.45 L, Total Counted Not Reportable, Differential Comment , Platelet Estimate ADEQUATE, RBC Morphology N CHROM 05/26/18 18:47: Sodium 143, Potassium 4.9, Chloride 110 H, Carbon Dioxide 26.0, Anion Gap 7, BUN 41 H, Creatinine 1.90 H, Estim Creat Clear Calc 42.54, Est GFR (MDRD) Af Amer 46 L, Est GFR (MDRD) Non-Af 38 L, BUN/Creatinine Ratio 21.6 H, Glucose 197 H, Calcium 8.5, Total Bilirubin 0.40, AST 12 L, ALT 22, Alkaline Phosphatase 93, Total Protein 6.0 L, Albumin 2.6 L, Globulin 3.4, Albumin/Globulin Ratio 0.8 L 05/26/18 22:35: Magnesium 2.1 05/26/18 22:35: Troponin I 0.044 05/26/18 22:45: B-Natriuretic Peptide 181.1 H 05/26/18 22:45: PT 13.6, INR 1.0 05/27/18 03:25: WBC 6.3, RBC 2.69 L, Hgb 8.2 L, Hct 27.4 L, MCV 101.9 H, MCH 30.5, MCHC 29.9 L, RDW 15.5 H, RDW Differential 55.6 H, Plt Count 162, MPV 11.3, Immature Gran % (Auto) 0.200, Neut % (Auto) 75.6 H, Lymph % (Auto) 7.9 L, [place] % (Auto) 10.6 H, Eos % (Auto) 5.2 H, Baso % (Auto) 0.5, Absolute Neuts (auto) 4.8, Absolute Lymphs (auto) 0.50 L, Total Counted Not Reportable, Differential Comment SCANNED 05/27/18 03:25: Sodium 146 H, Potassium 4.9, Chloride 114 H, Carbon Dioxide 26.0, Anion Gap 6, BUN 39 H, Creatinine 1.74 H, Estim Creat Clear Calc 46.46, Est GFR (MDRD) Af Amer 51 L, Est GFR (MDRD) Non-Af 42 L, BUN/Creatinine Ratio 22.4 H, Glucose 126 H, Calcium 8.3 L, Triglycerides 99, Cholesterol 105, LDL Cholesterol 50, VLDL Cholesterol 20, HDL Cholesterol 35 L 05/27/18 03:25: Troponin I 0.047 H Current Medications Acetaminophen (Tylenol) 650 mg PO Q6H PRN PRN PRN Reason: PAIN Last Admin: 05/27/18 07:04 Dose: 650 mg Albuterol/Ipratropium (Duoneb) 3 ml INHALATION Q2H PRN PRN PRN Reason: SOB &/OR WHEEZING Amlodipine Besylate (Norvasc) 5 mg PO DAILY [facility] Aspirin (Ecotrin) 81 mg PO DAILY@0800 JOCELYNN Atorvastatin Calcium (Lipitor) 40 mg PO QHS JOCELYNN Carvedilol (Coreg) 6.25 mg PO BID JOCELYNN Doxazosin Mesylate (Cardura) 4 mg PO QHS JOCELYNN Furosemide (Lasix) 40 mg IV BIDLX JOCELYNN Hydralazine HCl (Apresoline) 75 mg PO TID JOCELYNN Last Admin: 05/27/18 06:06 Dose: 75 mg Sodium Chloride () 250 mls @ 15 mls/hr IV .[id number] PRN PRN Reason: SALINE FLUSH Ipratropium [place] (Atrovent) 0.5 mg INHALATION Q6HWA.RT JOCELYNN Last Admin: 05/27/18 06:40 Dose: 0.5 mg Loratadine (Claritin) 10 mg PO DAILY [facility] Multivitamins (Multivitamin) 1 tablet PO DAILY@0800 JOCELYNN Pantoprazole Sodium (Protonix) 40 mg PO DAILY JOCELYNN Polysaccharide Iron Complex (Ferrex 150) 150 mg PO BIDCM JOCELYNN Sodium Chloride () 5 - 30 ml IV UD PRN PRN Reason: SALINE FLUSH Last Admin: 05/26/18 23:51 Dose: 20 ml Medical Necessity - Tobacco Use Smoking Status: Former smoker Assessment/Plan All Active Problems Acute respiratory failure (Acute) Shortness of breath (Acute) HCAP (healthcare-associated pneumonia) (Ruled-out) Systolic and diastolic CHF, acute on chronic (Acute) 1. Acute CHF exacerbation Unclear which type of anesthesia patient has Continue with IV Lasix Patient on hydralazine and isosorbide. Presumably, patient not on CHU inhibitor nor angiotensin receptor nafisa given chronic kidney disease 2. Pleural effusion Suspect that this has been transudate of facets unclear why the patient actually had a Pleurx catheter other than him requiring frequent thoracenteses. Will request records from [facility] in regards to this. Patient had the Pleurx catheter placed there. Discussed with pulmonology and the plan is for CAT scan of his chest. Concern is the patient may have a loculated effusion. 3. Chronic kidney disease stage III Appears stable at this time. Continue to monitor. 4. Slightly elevated troponin Barely over the crest of abnormal at 0.047 I do not suspect any acute coronary syndrome but rather likely cardiac strain due to the patient's underlying CHF. Continue with aspirin, Coreg and atorvastatin 5. DVT prophylaxis with heparin Code Visit Inpatient E&M: 50762 Subs Hosp L2
--- NOTE | 2018-05-27 08:36 | PN_ITS ---
Patient Problems: Active and Suspected Problems Systolic and diastolic CHF, acute on chronic (Acute) Subjective: Has been short of breath since discharge from TCU. Has put on 4-5 # during that time. PleurX not draining. Apparently placed due to effusions d/t CHF. Vitals/I&O's: Vital Signs Temp Pulse Resp BP Pulse Ox 36.4 C L 70 17 165/54 H 96 05/27/18 04:00 05/27/18 07:29 05/27/18 07:00 05/27/18 07:00 05/27/18 07:00 Oxygen Flow Rate (L/min) 6 Oxygen Delivery Method Room Air Weight: 111 kg Body Mass Index (BMI) 33.2 Intake and Output for Last 24 Hours 05/25/18 05/26/18 05/27/18 23:59 23:59 23:59 Intake Total 40 / 40 Output Total 500 / 500 Balance -460 / -460 General: Alert, No apparent distress HEENT: Atraumatic, Normocephalic Oral: Moist Mucosa, No Gingival or Mucosal Lesions/ Ulcerations Neck: No Nuchal Rigidity, Thyroid Normal Size and Texture, JVD, Right Lungs: Diminished, - - coarse BS in bases. Cardiovascular: Regular rate, Regular Rhythm, Normal S1, Normal S2, No murmurs Abdomen: Bowel Sounds Present, Soft, Non Tender, Non-Distended, No Hepato-s plenomegaly Extremities: No Calf Tenderness, Edema Skin: No rashes, No breakdown Psych/Mental Status: Appropriate, Flat Affect Laboratory Results 05/26/18 18:47: WBC 7.3, RBC 2.94 L, Hgb 9.0 L, Hct 29.9 L, MCV 101.7 H, MCH 30.6, MCHC 30.1 L, RDW 15.6 H, RDW Differential 56.8 H, Plt Count 166, MPV 12.2 H, Immature Gran % (Auto) 0.100, Neut % (Auto) 79.9 H, Lymph % (Auto) 6.1 L, [place] % (Auto) 8.1, Eos % (Auto) 5.5 H, Baso % (Auto) 0.3, Absolute Neuts (auto) 5.9, Absolute Lymphs (auto) 0.45 L, Total Counted Not Reportable, Differential Comment , Platelet Estimate ADEQUATE, RBC Morphology N CHROM 05/26/18 18:47: Sodium 143, Potassium 4.9, Chloride 110 H, Carbon Dioxide 26.0, Anion Gap 7, BUN 41 H, Creatinine 1.90 H, Estim Creat Clear Calc 42.54, Est GFR (MDRD) Af Amer 46 L, Est GFR (MDRD) Non-Af 38 L, BUN/Creatinine Ratio 21.6 H, Glucose 197 H, Calcium 8.5, Total Bilirubin 0.40, AST 12 L, ALT 22, Alkaline Phosphatase 93, Total Protein 6.0 L, Albumin 2.6 L, Globulin 3.4, Albumin/Globulin Ratio 0.8 L 05/26/18 22:35: Magnesium 2.1 05/26/18 22:35: Troponin I 0.044 05/26/18 22:45: B-Natriuretic Peptide 181.1 H 05/26/18 22:45: PT 13.6, INR 1.0 05/27/18 03:25: WBC 6.3, RBC 2.69 L, Hgb 8.2 L, Hct 27.4 L, MCV 101.9 H, MCH 30.5, MCHC 29.9 L, RDW 15.5 H, RDW Differential 55.6 H, Plt Count 162, MPV 11.3, Immature Gran % (Auto) 0.200, Neut % (Auto) 75.6 H, Lymph % (Auto) 7.9 L, [place] % (Auto) 10.6 H, Eos % (Auto) 5.2 H, Baso % (Auto) 0.5, Absolute Neuts (auto) 4.8, Absolute Lymphs (auto) 0.50 L, Total Counted Not Reportable, Differential Comment SCANNED 05/27/18 03:25: Sodium 146 H, Potassium 4.9, Chloride 114 H, Carbon Dioxide 26.0, Anion Gap 6, BUN 39 H, Creatinine 1.74 H, Estim Creat Clear Calc 46.46, Est GFR (MDRD) Af Amer 51 L, Est GFR (MDRD) Non-Af 42 L, BUN/Creatinine Ratio 22.4 H, Glucose 126 H, Calcium 8.3 L, Triglycerides 99, Cholesterol 105, LDL Cholesterol 50, VLDL Cholesterol 20, HDL Cholesterol 35 L 05/27/18 03:25: Troponin I 0.047 H Current Medications Acetaminophen (Tylenol) 650 mg PO Q6H PRN PRN PRN Reason: PAIN Last Admin: 05/27/18 07:04 Dose: 650 mg Albuterol/Ipratropium (Duoneb) 3 ml INHALATION Q2H PRN PRN PRN Reason: SOB &/OR WHEEZING Amlodipine Besylate (Norvasc) 5 mg PO DAILY [facility] Aspirin (Ecotrin) 81 mg PO DAILY@0800 JOCELYNN Atorvastatin Calcium (Lipitor) 40 mg PO QHS JOCELYNN Carvedilol (Coreg) 6.25 mg PO BID JOCELYNN Doxazosin Mesylate (Cardura) 4 mg PO QHS JOCELYNN Furosemide (Lasix) 40 mg IV BIDLX JOCELYNN Hydralazine HCl (Apresoline) 75 mg PO TID JOCELYNN Last Admin: 05/27/18 06:06 Dose: 75 mg Sodium Chloride () 250 mls @ 15 mls/hr IV .[id number] PRN PRN Reason: SALINE FLUSH Ipratropium [place] (Atrovent) 0.5 mg INHALATION Q6HWA.RT JOCELYNN Last Admin: 05/27/18 06:40 Dose: 0.5 mg Loratadine (Claritin) 10 mg PO DAILY [facility] Multivitamins (Multivitamin) 1 tablet PO DAILY@0800 JOCELYNN Pantoprazole Sodium (Protonix) 40 mg PO DAILY JOCELYNN Polysaccharide Iron Complex (Ferrex 150) 150 mg PO BIDCM JOCELYNN Sodium Chloride () 5 - 30 ml IV UD PRN PRN Reason: SALINE FLUSH Last Admin: 05/26/18 23:51 Dose: 20 ml Medical Necessity - Tobacco Use Smoking Status: Former smoker Assessment/Plan All Active Problems Acute respiratory failure (Acute) Shortness of breath (Acute) HCAP (healthcare-associated pneumonia) (Ruled-out) Systolic and diastolic CHF, acute on chronic (Acute) 1. Acute CHF exacerbation * Unclear which type of anesthesia patient has * Continue with IV Lasix * Patient on hydralazine and isosorbide. Presumably, patient not on CHU inhibitor nor angiotensin receptor nafisa given chronic kidney disease 2. Pleural effusion * Suspect that this has been transudate of facets unclear why the patient actually had a Pleurx catheter other than him requiring frequent thoracenteses. * Will request records from [facility] in regards to this. Patient had the Pleurx catheter placed there. * Discussed with pulmonology and the plan is for CAT scan of his chest. Concern is the patient may have a loculated effusion. 3. Chronic kidney disease stage III * Appears stable at this time. Continue to monitor. 4. Slightly elevated troponin * Barely over the crest of abnormal at 0.047 I do not suspect any acute coronary syndrome but rather likely cardiac strain due to the patient's underlying CHF. * Continue with aspirin, Coreg and atorvastatin 5. DVT prophylaxis with heparin Code Visit Inpatient E&M: 06498 Subs Hosp L2
--- NOTE | 2018-05-27 08:39 | CON.PCM_ITS ---
Problem List (1) Acute respiratory failure Status: Acute Qualifiers: Respiratory failure complication: hypoxia Qualified Code(s): J96.01 - Acute respiratory failure with hypoxia (2) Recurrent pleural effusion on right Status: Chronic (3) Hypertriglyceridemia Status: Chronic (4) Systolic and diastolic CHF, acute on chronic Status: Acute (5) Chronic kidney disease Status: Chronic (6) Diabetes mellitus Status: Chronic (7) Obesity Status: Chronic (8) Hypertension Status: Chronic (9) History of tobacco use Status: Chronic Reason for Consult Date of Consultation: 05/27/18 Reason for Consultation: Acute hypoxic respiratory failure History of Present Illness: The patient is a 67 year old M, with past medical history listed below, who presented to [facility] on 05/26/2018 secondary to an inability to drain his Pleurx catheter from the right thorax. Patient reportedly had this placed at [facility] secondary to congestive heart failure. Patient has recently been admitted upon the TCU, but while at home started to have increased respiratory distress. Patient does have a chronic cough, which she does not believe is significantly changed from previous. Chest x-ray completed in the emergency room showed bilateral pleural effusions. ER did give patient Lasix therapy. ER physician was nervous about potential the client, so patient was placed in the intensive care unit overnight. While in the intensive care unit, patient has been stable on 6 L nasal cannula. Patient has not required any noninvasive therapy since being in the intensive care unit. Patient states that he has no history of cancer and that the chest tube was placed to help with heart fluid. Patient does report having thoracentesis previously. Patient denies any pain at the Pleurx catheter site. Patient does report that it can start to hurt if he does not drain the catheter in appropriate amount of time. Patient denies any fever, chills, nausea or vomiting. No exudate is been reported from the Pleurx site. Review of systems otherwise negative x10 systems. Past Medical History Past Medical History (Chronic Problems): Chronic Problems Recurrent pleural effusion on right (Chronic) Hypertriglyceridemia (Chronic) Chronic kidney disease (Chronic) Diabetes mellitus (Chronic) Type 2 diabetes mellitus (Chronic) Obesity (Chronic) Hypertension (Chronic) History of tobacco use (Chronic) Allergies bacitracin Allergy (Verified 05/16/18 17:25) Rash rosuvastatin [From Crestor] Adverse Reaction (Verified 05/16/18 17:25) Upset Stomach Home Medications: Ambulatory Orders Medication Instructions Recorded Amlodipine [Norvasc] 5 mg PO DAILY 05/16/18 Aspirin E.C. [Ecotrin] 81 mg PO DAILY@0800 05/16/18 Atorvastatin Calcium [Lipitor] 40 mg PO QHS 05/16/18 Carvedilol [Coreg (Beta Shayna)] 6.25 mg PO BID 05/16/18 Doxazosin Mesylate [Cardura] 4 mg PO QHS 05/16/18 Furosemide 40 mg PO DAILY 05/16/18 Hydralazine HCl 75 mg PO TID 05/16/18 Multivitamin [Daily Multiple 1 each PO DAILY 05/16/18 Vitamin] Pantoprazole Sodium 40 mg PO DAILY 05/16/[address] [place] [Spiriva] 18 mcg IH DAILY 05/16/18 Acetaminophen [Tylenol] 1,000 mg PO Q8H PRN PRN tablet 05/23/18 Ipratropium/Albuterol Sulfate 3 ml INHALATION Q2H PRN PRN #60 05/23/18 [Duoneb] ampul.neb Iron Polysaccharide Complex 150 mg PO BIDCM #30 cap 05/23/18 [Ferrex 150] Loratadine [Claritin] 10 mg PO DAILY tablet 05/23/18 Surgical History: cholecystectomy, herniorrhaphy, - - Right toes amputation, right Pleurex catheter insertion. Psychiatric History: No pertinent psych hx Smoking Status: Former smoker - *Family History Maternal History Items: Cancer - breast., Diabetes, Heart Disease Paternal History Items: Diabetes, Heart Disease Review of Systems Comment: See HPI Patient Problems: Active and Suspected Problems Systolic and diastolic CHF, acute on chronic (Acute) Objective: Chest x-ray was personally reviewed and shows bilateral pleural effusions. - Physical Exam General: Alert, Oriented x3, Cooperative, - - Mild conversational dyspnea noted. Appears stated age. HEENT: Atraumatic, PERRLA, EOMI, Normocephalic, - - No scleral icterus or injection noted. Oral: Moist Mucosa, No Gingival or Mucosal Lesions/ Ulcerations Neck: Supple, No Nodes, Trachea Midline, JVD, Right Lungs: No rhonchi, No wheeze, No rales, Diminished - Bilateral bases., - - Dullness to percussion bilateral bases. Pleurx site is clean, dry and intact. Cardiovascular: Regular rate, Regular Rhythm, Normal S1, Normal S2, No murmurs, No rub noted, No Gallop Abdomen: Bowel Sounds Present, Soft, Non Tender, Non-Distended, Obese Extremities: No clubbing, No cyanosis, No edema, Capillary Refill Less than 3 Seconds, - - Toe amputations appreciated Skin: - - Left foot wound Musculoskeletal: No Tenderness to Palpation of Joints or Extremities Lymphatic: No Cervical, Supraclavicular, or Inguinal Adenopathy Neurological: Cranial nerves II-XII grossly intact, Neuro grossly intact, Motor Exam 5/5 strength throughout Psych/Mental Status: Alert and oriented to time, place, person, mood and affect Vital Signs Temp Pulse Resp BP Pulse Ox 36.9 C 67 18 166/54 H 100 05/27/18 08:32 05/27/18 08:32 05/27/18 08:32 05/27/18 08:32 05/27/18 08:32 Oxygen Flow Rate (L/min) 6 Oxygen Delivery Method Nasal Cannula Weight: 111 kg Body Mass Index (BMI) 33.2 Intake and Output for Last 24 Hours 05/25/18 05/26/18 05/27/18 23:59 23:59 23:59 Intake Total 40 / 40 Output Total 500 / 500 Balance -460 / -460 Laboratory Tests Past 24 Hrs 05/26/18 05/26/18 05/26/18 18:47 18:47 22:35 WBC 7.3 RBC 2.94 L Hgb 9.0 L Hct 29.9 L MCV 101.7 H MCH 30.6 MCHC 30.1 L RDW 15.6 H RDW Differential 56.8 H Plt Count 166 MPV 12.2 H Immature Gran % (Auto) 0.100 Neut % (Auto) 79.9 H Lymph % (Auto) 6.1 L [place] % (Auto) 8.1 Eos % (Auto) 5.5 H Baso % (Auto) 0.3 Absolute Neuts (auto) 5.9 Absolute Lymphs (auto) 0.45 L Total Counted Not Reportable Differential Comment Platelet Estimate ADEQUATE RBC Morphology N CHROM PT INR Sodium 143 Potassium 4.9 Chloride 110 H Carbon Dioxide 26.0 Anion Gap 7 BUN 41 H Creatinine 1.90 H Estim Creat Clear Calc 42.54 Est GFR (MDRD) Af Amer 46 L Est GFR (MDRD) Non-Af 38 L BUN/Creatinine Ratio 21.6 H Glucose 197 H Calcium 8.5 Magnesium 2.1 Total Bilirubin 0.40 AST 12 L ALT 22 Alkaline Phosphatase 93 Troponin I B-Natriuretic Peptide Total Protein 6.0 L Albumin 2.6 L Globulin 3.4 Albumin/Globulin Ratio 0.8 L Triglycerides Cholesterol LDL Cholesterol VLDL Cholesterol HDL Cholesterol 05/26/18 05/26/18 05/26/18 22:35 22:45 22:45 WBC RBC Hgb Hct MCV MCH MCHC RDW RDW Differential Plt Count MPV Immature Gran % (Auto) Neut % (Auto) Lymph % (Auto) [place] % (Auto) Eos % (Auto) Baso % (Auto) Absolute Neuts (auto) Absolute Lymphs (auto) Total Counted Differential Comment Platelet Estimate RBC Morphology PT 13.6 INR 1.0 Sodium Potassium Chloride Carbon Dioxide Anion Gap BUN Creatinine Estim Creat Clear Calc Est GFR (MDRD) Af Amer Est GFR (MDRD) Non-Af BUN/Creatinine Ratio Glucose Calcium Magnesium Total Bilirubin AST ALT Alkaline Phosphatase Troponin I 0.044 B-Natriuretic Peptide 181.1 H Total Protein Albumin Globulin Albumin/Globulin Ratio Triglycerides Cholesterol LDL Cholesterol VLDL Cholesterol HDL Cholesterol 05/27/18 05/27/18 05/27/18 03:25 03:25 03:25 WBC 6.3 RBC 2.69 L Hgb 8.2 L Hct 27.4 L MCV 101.9 H MCH 30.5 MCHC 29.9 L RDW 15.5 H RDW Differential 55.6 H Plt Count 162 MPV 11.3 Immature Gran % (Auto) 0.200 Neut % (Auto) 75.6 H Lymph % (Auto) 7.9 L [place] % (Auto) 10.6 H Eos % (Auto) 5.2 H Baso % (Auto) 0.5 Absolute Neuts (auto) 4.8 Absolute Lymphs (auto) 0.50 L Total Counted Not Reportable Differential Comment SCANNED Platelet Estimate RBC Morphology PT INR Sodium 146 H Potassium 4.9 Chloride 114 H Carbon Dioxide 26.0 Anion Gap 6 BUN 39 H Creatinine 1.74 H Estim Creat Clear Calc 46.46 Est GFR (MDRD) Af Amer 51 L Est GFR (MDRD) Non-Af 42 L BUN/Creatinine Ratio 22.4 H Glucose 126 H Calcium 8.3 L Magnesium Total Bilirubin AST ALT Alkaline Phosphatase Troponin I 0.047 H B-Natriuretic Peptide Total Protein Albumin Globulin Albumin/Globulin Ratio Triglycerides 99 Cholesterol 105 LDL Cholesterol 50 VLDL Cholesterol 20 HDL Cholesterol 35 L Clinical Impression(s) from Imaging Studies Chest X-Ray 05/26/18 19:05 IMPRESSION: Worsening bilateral lower lobe opacity. Findings suspicious for worsening large bilateral effusions and/or consolidation. Electronically Signed: Michelle Bowman MD at 19:18 EDT Tel , Service support , Assessment/Plan Active and Suspected Problems Systolic and diastolic CHF, acute on chronic (Acute) RECOMMENDATIONS: 1. Obtain CT scan of the chest 2. Possible thoracentesis later this morning 3. Okay to continue with diuretic therapy 4. Wean oxygen as tolerated IMPRESSIONS: 1. Acute hypoxic respiratory failure secondary to acute on chronic combined CHF Patient reports a Pleurx catheter was placed secondary to uncontrolled congestive heart failure. This is not been confirmed with documentation. Patient is on increased diuretic therapy. Unable to aspirate from the Pleurx catheter. Patient may have developed loculations. Chest x-ray shows a pattern consistent with bilateral pleural effusions. Will obtain a CT scan of the chest to evaluate for loculations, possible masses or blocked airways. If significant effusion is present, patient may benefit from a thoracentesis. D iagnostic studies would be indicated if patient has any masses on the CT scan. Patient may need to have removal of Pleurx catheter as it is no longer functional and poses an infection risk. Patient can remain on medical therapy for CHF. 2. 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 John hagen has been given Lasix therapy, so we will need to watch closely. Blood sugars can be followed. Patient currently n.p.o. Sliding scale insulin would be appropriate. Would avoid metformin therapy for reported diabetes mellitus secondary to renal function and age. 3. Obesity/hypertension/hypertriglyceridemia/recurrent admissions/BPH/reported COPD Complicates care, management, recovery and prognosis. Okay to continue with baseline medications. Encourage weight loss. No PFTs are available for confirmation of COPD. Patient can remain on bronchodilators as needed. Patient does not appear to be in acute exacerbation of COPD at this time. Code Visit Inpatient E&M: 97246 Init Hosp L3
--- NOTE | 2018-05-27 08:47 | NURSING ---
Susie from echo at bedside
[2018-05-27] MEDS: amLODIPine 5 MG Tablet PO (09:39)
[2018-05-27] MEDS: Heparin Injection (Vial) 5,000 UNIT/ML VIAL 5000 UNIT SC ×2 (09:39→21:28)
[2018-05-27] MEDS: Pantoprazole Sodium 40 MG Tablet PO (09:39)
[2018-05-27] MEDS: Furosemide 40 MG/4 ML Vial IV ×2 (09:39→17:12)
[2018-05-27] MEDS: Carvedilol 6.25 MG Tablet PO ×2 (09:39→21:26)
[2018-05-27] MEDS: Aspirin E.C. 81 MG Tablet PO (09:39)
[2018-05-27] MEDS: Multivitamins,Therapeutic Tablet 1 TABLET PO (09:39)
[2018-05-27] MEDS: 0.9% NaCl Peripheral Flush Adult/Peds IV ×2 (09:39→17:12)
[2018-05-27] MEDS: Iron Polysaccharide Complex 150 MG CAPSULE PO ×2 (09:39→17:12)
[2018-05-27] MEDS: Loratadine 10 MG Tablet PO (09:40)
[2018-05-27] MEDS: Ipratropium/Albuterol Sulfate 3 ML AMPUL.NEB INHALATION ×2 (13:08→19:18)
[2018-05-27 14:11] LABS: Bedside Glucose 118 mg/dL (70-110)
--- NOTE | 2018-05-27 14:24 | CASEMGMT ---
Addendum entered by Everardo Constantino 05/27/18 14:47: Pt states he used to smoke but quit and has not smoked for about 16-18 yrs. Pt also states he does not drink alcohol. Original Note: KARRIE BYRD INITIAL REVIEW ASSESSMENT D/C PLAN: Home w/support of spouse. Agreeable to [facility] if he would need it on d/c. Face to Face with patient for initial transition planning/care coordination assessment. KARRIE BYRD introduced self and role at [facility]. Care providers, pharmacy, and demographics verified. PCP: Dr Barroso @ [facility]. States he was just going to start seeing Dr Olmos there as well and thinks he was supposed to see him either today or tomorrow. Specialists: Deckhand Oyster Dredge: Nathalie Garland, Developing Machine Tender: Dr Gr, Music Specialist @ [facility] Preferred Pharmacy: [facility] [place]: [place] Insurance: MCR A B Prescription Benefit: States has no prescription coverage. Says pays for meds [id number] Living Will/HPOA: Denies having LW or HPOA and does not want any further information about this. LNOK: , Nicole Living Arrangements: Lives at home with his . She assists with bathing, dressing, meals, bills/finances, chores. Pt reports he manages his own medications. Pt states he lives in a one-story home and there are 3 steps to enter. Transportation: Pt reports he still drives and his is able to provide transportation if he was unable to/needed help. DME: Pt states he has a shower chair, raised toilet seat, lift chair, rails/grab bars, hand held shower, cane that he uses at times, and a walker is available but he does not use it. *Pt reports he also has a nebulizer and wears O2 @ home @ 2-3 L/M via N/C that he gets from [facility]. KARRIE BYRD placed call to Obed @ [facility] who state they made a delivery on May 01 to pt's home, but they do not have a current O2 order for him. Obed stated d/t [facility] closing soon, that pt can switch services over to [facility] for further O2 needs. *Pt states he does not need or want any further DME at this time. HHC/SNF: Pt was on TCU and recently discharged on 05/26/18 to home. Pt reports he is current with [facility] nursing for pleurx catheter care. RN CARSON placed call to [facility] and was informed that pt is not currently receiving services from them. Pt's plans on D/C: Wishes to return home. Agreeable to [facility] if he would need it on D/C. Discussed Palliative care with pt and he stated he has heard of it before but does not really know much about it. Agreeable to talking with RODRIGUEZ. Mary YOON CM made aware and states will notify SW. Advised pt to ask for CM if any further questions/concerns/needs arise, voices understanding. CM to follow for any further discharge planning/needs. Jose SEPULVEDA RN, CM
[2018-05-27 17:26] LABS: Bedside Glucose 203 mg/dL (70-110)
[2018-05-27] MEDS: Atorvastatin Calcium 40 MG Tablet PO (21:26)
[2018-05-27] MEDS: Doxazosin 4 MG Tablet PO (21:26)
[2018-05-27 21:56] LABS: Bedside Glucose 133 mg/dL (70-110)
[2018-05-28] VITALS (28 sets, daily range): BP systolic 114–168; BP diastolic 43–68; PULSE 51–75; RESP 16–36; TEMP 36.5–37.3; O2SAT 93–100
[2018-05-28 00:51] LABS: Bedside Glucose 147 mg/dL (70-110)
[2018-05-28] MEDS: hydrALAZINE 25 MG Tablet 75 MG PO ×3 (06:15→22:44)
[2018-05-28 06:25] LABS: Bedside Glucose 135 mg/dL (70-110)
[2018-05-28 07:01] LABS: Absolute Lymphocyte Count 0.56 X10^3/ul (0.83-4.51); Absolute Neutrophil Count 3.5 X10^3/uL (2.0-7.7); Basophil# 0.03 X10^3/uL; Basophil% 0.6 % (0-1); Eosinophil# 0.39 X10^3/uL; Eosinophils% 7.7 % (0-5); Hematocrit 26.9 % (40-54); Lymphocyte # 0.56 X10^3/ul (4.0); Lymphocyte % 11.1 % (19-41); Mean Corp Hgb Conc 29.7 g/gl (32-36); Mean Corpuscular Hgb 30.4 pg (27.0-32.0); Mean Corpuscular Volume 102.3 fL (80-94); Mean Platelet Vol. 11.2 fl (6.2-12.0); Monocyte# 0.56 X10^3/uL; Monocyte% 11.1 % (0-10); Neutrophil # 3.51 X10^3/uL (2.7-7.7); Neutrophil % 69.3 % (47-70); Platelet Count 146 K/mm3 (150-450); RBC Distribution Width CV 15.6 % (11.6-14.6); RBC Distribution Width SD 56.3 fl (35.1-43.9); Red Blood Count 2.63 M/mm3 (4.6-6.2); White Blood Count 5.1 K/mm3 (4.4-11.0)
[2018-05-28 07:02] LABS: Differential Indicated SCAN CRITERIA MET; POSITIVE COUNT NO; POSITIVE DIFFERENTIAL YES; POSITIVE MORPHOLOGY NO
[2018-05-28 07:09] LABS: Prothrombin Time (Protime)PT. 13.6 SECONDS (11.7-14.9)
[2018-05-28 07:10] LABS: Partial Thromboplast Time 34.6 Seconds (24.1-36.2)
[2018-05-28] MEDS: Ipratropium/Albuterol Sulfate 3 ML AMPUL.NEB INHALATION ×3 (07:37→19:30)
[2018-05-28 07:58] LABS: ALB/GLOB Ratio 0.7 RATIO (0.9-2.4); Anion Gap 6 (5-15); BUN 44 mg/dL (7-18); Calcium,Total 8.5 mg/dL (8.5-10.1); Chloride 112 mmol/L (98-107); Creatinine, Serum 1.91 mg/dL (0.70-1.30); EST Glomerular Filtration Rate 38 mL/min (>60); Est Glom Filt Rate - Afr Amer 46 mL/min (>60); Estimated Creatinine Clearance 42.32 ml/min; Ferritin 177 ng/mL (26-388); Globulin 3.3 g/dL (2.2-4.2); Glucose 123 mg/dL (74-106); Iron 43 ug/dL (65-175); Iron Binding Capacity,Total 196 ug/dL (250-450); LDH 175 U/L (87-241); PERCENT IRON SATURATION 21.9 % (15.0-55.0); Potassium 4.9 mmol/L (3.5-5.1); Protein, Total 5.6 g/dL (6.4-8.2); Sodium Level 145 mmol/L (136-145)
[2018-05-28] MEDS: Furosemide 40 MG/4 ML Vial IV ×2 (08:10→17:07)
[2018-05-28] MEDS: 0.9% NaCl Peripheral Flush Adult/Peds IV (08:12)
[2018-05-28 08:53] LABS: Differential Comment SCANNED
--- NOTE | 2018-05-28 09:30 | US_ITS ---
PROCEDURE: ULTRASOUND GUIDED THORACENTESIS. DATE: May 28, 2018.. INDICATION: Male, 67 years old. Right pleural effusion PHYSICIAN: Chilo Ulrich M.D. PROCEDURE: The risks, benefits, and alternatives to the procedure were explained to the patient. The specific risks of bleeding, infection, and pneumothorax requiring chest tube insertion were discussed and accepted. Written informed consent was obtained. Ultrasonographic evaluation of the right lower pleural space was carried out. An adequate pocket was identified. The patient was placed in the sitting, upright position. The overlying skin was prepped and draped in sterile fashion. 1% lidocaine was administered subcutaneously for local anesthesia. Under ultrasound guidance, a 5 Tamazight thoracentesis needle/catheter system was advanced into the right posterior lower pleural fluid collection. Approximately 1420 mL of blood tinged fluid was drained. The catheter was removed, and a sterile dressing was applied. A specimen was collected and sent to the laboratory for analysis, as requested by the referring clinician. The patient tolerated the procedure well. A chest x-ray was ordered. US/Thoracentesis W US IMPRESSION: Ultrasound-guided right thoracentesis. Electronically Signed: Chilo Ulrich MD at 11:08 EDT Tel [phone], Service support ,
[2018-05-28 09:33] LABS: Vitamin B12 358 pg/mL (211-911)
--- NOTE | 2018-05-28 10:05 | RAD_ITS ---
STUDY: X-RAY CHEST REASON FOR EXAM: Male, 67 years old. Post thoracentesis. TECHNIQUE: Frontal views of the chest on inspiration and expiration. COMPARISON: Portable AP upright chest x-ray May 26, 2018; CT chest/thorax May 27, 2018. FINDINGS: Post thoracentesis, the right pleural effusion has been nearly fully evacuated. A right chest tube also remains in place. No pneumothorax. There is residual pleural thickening or residual fluid along the diaphragm and lateral margin of the right base. There is ill-defined right perihilar airspace disease of improving partial collapse versus infection or perihilar pulmonary edema. Opacity in the left perihilar lung and the left base, seen to reflect a combination of pleural effusion and airspace disease on CT, is unchanged. There is stable mild cardiac enlargement. There is borderline right paratracheal mediastinal fullness. Normal visualized pulmonary arteries. There is atherosclerotic calcification of the aortic arch. There are stable multilevel degenerative changes of the visualized thoracic spine. 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 There is no demonstrated abnormality of the visualized soft tissue structures of the upper abdomen. RAD/Chest Insp/Exp 2 View IMPRESSION: 1. Right pleural effusion nearly fully evacuated post thoracentesis. Residual thickening or fluid remains along the diaphragm and lateral right base. Right chest tube again noted. No pneumothorax. 2. Ill-defined right perihilar density may be improving partial collapse, but infection or localized pulmonary edema not excluded. 3. Combined airspace disease and pleural effusion in the left perihilar region and the left base are unchanged. 4. Stable mild cardiac enlargement. Electronically Signed: Jim Boland MD at 12:16 EDT , Service support ,
--- NOTE | 2018-05-28 10:20 | FLU_PTH ---
PATIENT: GOYO HERR LOC: [facility] U#:[id number] AGE/SX: 67/M ROOM: [facility] RE05/26/[address]: Dr. Pedrito Alarcon DO : 1950 BED: 1 DIS: 05/29/2018 SPEC #: [id number] RECD: 05/28/18 10:47 STATUS: LEIGH REQ #: [id number] AAKASH: 05/28/18 10:[address]: Henry Crane DEPT: CYTOLOGY RECD BY: Adin Lentz ENTERED: 05/28/18 10:47 SP TYPE: Fluid OTHR DR: MD Dr. Primo Browning MD Dr. Paul Nielsen, MD Tissues: THORACIC FLUID Procedures: Pap Stain (control) Special Stain Group II Surgery Specimen Level IV Cell Block Cytospin Fluid HEADER OPERATION: Ultrasound-guided right thoracentesis PRE-OP DIAGNOSIS: Right pleural effusion, CHF TISSUE SUBMITTED: Thoracentesis fluid for cytology DIAGNOSIS CYTOLOGY Thoracentesis fluid for cytology (cytospin and cell block): Negative for malignant cells. See cytology study and comment. SJ:rg 05/29/18 COMMENT Clinical correlation and appropriate follow up are necessary. CYTOLOGY STUDY Slides are reviewed. The specimen consists of macrophages, mesothelial cells and inflammatory cells. CYTOLOGY GROSS Received is 100 ml of red cloudy fluid labeled with the patient's name and and designated per the requisition as thoracentesis. Submitted for cytology preparation including cell block. / 05/28/18 TC:5 CPT: 49288, 30013
[2018-05-28 10:27] LABS: Cytology, Body Fluid / CSF SEE PATHOLOGY REPORT
[2018-05-28 10:51] LABS: Body Fluid Mononuclear WBC # 0.862 10^3/uL; Body Fluid Mononuclear WBC % 95.5 %; Body Fluid Polynuclear WBC # 0.041 10^3/uL; Body Fluid Polynuclear WBC % 4.5 %; Body Fluid Total Cells Counted 0.922 10^3/ul; White Blood Count/Body Fluid 0.903 10^3/uL
[2018-05-28] MEDS: amLODIPine 5 MG Tablet PO (11:02)
[2018-05-28] MEDS: Carvedilol 6.25 MG Tablet PO ×2 (11:02→22:45)
[2018-05-28] MEDS: Multivitamins,Therapeutic Tablet 1 TABLET PO (11:03)
[2018-05-28] MEDS: Loratadine 10 MG Tablet PO (11:03)
[2018-05-28] MEDS: Pantoprazole Sodium 40 MG Tablet PO (11:03)
[2018-05-28] MEDS: Iron Polysaccharide Complex 150 MG CAPSULE PO ×2 (11:03→17:07)
[2018-05-28] MEDS: Acetaminophen 325 MG Tablet 650 MG PO (11:06)
--- NOTE | 2018-05-28 11:08 | CASEMGMT ---
RODRIGUEZ met with patient, introduced self and role at [facility]. SW asked him about Palliative Care and he said he would like for his to be here and she will be here in a little bit. RODRIGUEZ told him SW will come back when she is here. Isabella HIRSCH MSW
[2018-05-28 11:11] LABS: Bedside Glucose 134 mg/dL (70-110)
[2018-05-28 11:38] LABS: Glucose, Body Fluid 133 mg/dL (40-70); LDH,Body Fluid 67 Units/l (Not Establ.)
[2018-05-28 11:50] LABS: Auto B Fluid Analyzer BKGD Ct COUNTS W/IN LIMITS (W/IN LIMITS); Lymphocytes 78 %; Macrophages 10 %; Mesothelial Cells 3 %; Monocytes 4 %; Neutrophil (Segs) 5 %
[2018-05-28 11:51] LABS: Appearance/Body Fluid SL CLDY; Color/Body Fluid RED; Source- Body Fluid THORACENTESIS
--- NOTE | 2018-05-28 11:51 | PCM.PROGNOTE ---
<Karissa Holley - Last Filed: 05/28/18 12:06> Patient Problems: Active and Suspected Problems Systolic and diastolic CHF, acute on chronic (Acute) Subjective: Patient seen and examined. Notes improvement in breathing status post right thoracentesis this morning. No other current complaints. - Physical Exam General: Alert, Oriented x3, Cooperative HEENT: Atraumatic, PERRLA, EOMI, Normocephalic Neck: Supple, No JVD, Negative Carotid Bruits Lungs: Clear to auscultation, Diminished Cardiovascular: Regular rate, Regular Rhythm, Normal S1, Normal S2, No murmurs Abdomen: Bowel Sounds Present, Soft, Non Tender, Non-Distended, Obese Extremities: No clubbing, No cyanosis, Edema - BLLE Skin: No rashes, No breakdown, - - Left foot wound. Dressing intact. Musculoskeletal: No Tenderness to Palpation of Joints or Extremities Neurological: Cranial nerves II-XII grossly intact, Neuro grossly intact Psych/Mental Status: Normal Affect, Appropriate Vital Signs Temp Pulse Resp BP Pulse Ox 98.4 F 72 22 H 138/53 H 98 05/28/18 10:56 05/28/18 11:32 05/28/18 10:56 05/28/18 10:56 05/28/18 10:56 Oxygen Flow Rate (L/min) 4 Oxygen Delivery Method Nasal Cannula Weight: 235 lb 3.732 oz Body Mass Index (BMI) 33.2 Intake and Output for Last 24 Hours 05/26/18 05/27/18 05/28/18 23:59 23:59 23:59 Intake Total 520 / 520 240 / 240 Output Total 500 / 500 1420 / 1420 Balance -1180 / -1180 Laboratory Tests Past 24 Hrs 05/28/18 05/28/18 05/28/18 06:46 06:46 06:46 WBC 5.1 RBC 2.63 L Hgb 8.0 L Hct 26.9 L MCV 102.3 H MCH 30.4 MCHC 29.7 L RDW 15.6 H RDW Differential 56.3 H Plt Count 146 L MPV 11.2 Immature Gran % (Auto) 0.200 Neut % (Auto) 69.3 Lymph % (Auto) 11.1 L [place] % (Auto) 11.1 H Eos % (Auto) 7.7 H Baso % (Auto) 0.6 Absolute Neuts (auto) 3.5 Absolute Lymphs (auto) 0.56 L Total Counted Not Reportable Differential Comment SCANNED PT INR APTT Sodium 145 Potassium 4.9 Chloride 112 H Carbon Dioxide 27.0 Anion Gap 6 BUN 44 H Creatinine 1.91 H Estim Creat Clear Calc 42.32 Est GFR (MDRD) Af Amer 46 L Est GFR (MDRD) Non-Af 38 L BUN/Creatinine Ratio 23.0 H Glucose 123 H Calcium 8.5 Iron 43 L TIBC 196 L Iron Saturation 21.9 Ferritin 177 Lactate Dehydrogenase 175 Total Protein 5.6 L Globulin 3.3 Albumin/Globulin Ratio 0.7 L Vitamin B12 358 Folate 26.40 TSH 2.50 Fluid Source Fluid Color Fluid Appearance Fluid WBC Fluid RBC Fluid Tot Cell Count Fld Polynuclear WBCs # Fld Polynuclear WBCs % Fluid Mononuclear WBCs Fld Mononuclear WBCs % Fluid Neutrophils Fluid Lymphocytes Fluid Monocytes Fluid Macrophages Fld Mesothelial Cells Fl Pathologist Comment Fluid Glucose Fluid Total Protein Fluid LDH Fluid Comment 2 Miscellaneous Cytology 05/28/18 05/28/18 05/28/18 06:46 10:10 10:20 WBC RBC Hgb Hct MCV MCH MCHC RDW RDW Differential Plt Count MPV Immature Gran % (Auto) Neut % (Auto) Lymph % (Auto) [place] % (Auto) Eos % (Auto) Baso % (Auto) Absolute Neuts (auto) Absolute Lymphs (auto) Total Counted Differential Comment PT 13.6 INR 1.0 APTT 34.6 Sodium Potassium Chloride Carbon Dioxide Anion Gap BUN Creatinine Estim Creat Clear Calc Est GFR (MDRD) Af Amer Est GFR (MDRD) Non-Af BUN/Creatinine Ratio Glucose Calcium Iron TIBC Iron Saturation Ferritin Lactate Dehydrogenase Total Protein Globulin Albumin/Globulin Ratio Vitamin B12 Folate TSH Fluid Source Pending Fluid Color Pending Fluid Appearance Pending Fluid WBC 0.903 Fluid RBC 0.95279 Fluid Tot Cell Count 0.922 Fld Polynuclear WBCs # 0.041 Fld Polynuclear WBCs % 4.5 Fluid Mononuclear WBCs 0.862 Fld Mononuclear WBCs % 95.5 Fluid Neutrophils 5 Fluid Lymphocytes 78 Fluid Monocytes 4 Fluid Macrophages 10 Fld Mesothelial Cells 3 Fl Pathologist Comment Pending Fluid Glucose 133 H Fluid Total Protein 2.0 Fluid LDH 67 Fluid Comment 2 Pending Miscellaneous Cytology 05/28/18 10:20 WBC RBC Hgb Hct MCV MCH MCHC RDW RDW Differential Plt Count MPV Immature Gran % (Auto) Neut % (Auto) Lymph % (Auto) [place] % (Auto) Eos % (Auto) Baso % (Auto) Absolute Neuts (auto) Absolute Lymphs (auto) Total Counted Differential Comment PT INR APTT Sodium Potassium Chloride Carbon Dioxide Anion Gap BUN Creatinine Estim Creat Clear Calc Est GFR (MDRD) Af Amer Est GFR (MDRD) Non-Af BUN/Creatinine Ratio Glucose Calcium Iron TIBC Iron Saturation Ferritin Lactate Dehydrogenase Total Protein Globulin Albumin/Globulin Ratio Vitamin B12 Folate TSH Fluid Source Fluid Color Fluid Appearance Fluid WBC Fluid RBC Fluid Tot Cell Count Fld Polynuclear WBCs # Fld Polynuclear WBCs % Fluid Mononuclear WBCs Fld Mononuclear WBCs % Fluid Neutrophils Fluid Lymphocytes Fluid Monocytes Fluid Macrophages Fld Mesothelial Cells Fl Pathologist Comment Fluid Glucose Fluid Total Protein Fluid LDH Fluid Comment 2 Miscellaneous Cytology Pending POC Glucose 05/28/18 05/28/18 05/28/18 11:07 06:17 00:44 POC Glucose 134 H 135 H 147 H 05/27/18 05/27/18 05/27/18 21:34 17:18 14:07 POC Glucose 133 H 203 H 118 H Medical Necessity - Tobacco Use Smoking Status: Former smoker Assessment/Plan All Active Problems Acute respiratory failure (Acute) Shortness of breath (Acute) HCAP (healthcare-associated pneumonia) (Ruled-out) Systolic and diastolic CHF, acute on chronic (Acute) 1. Acute on chronic hypoxic respiratory failure secondary to acute diastolic CHF-chest x-ray on admission showed worsening bilateral lower lobe opacity. Large bilateral effusions. Continue IV Lasix. Strict I&O. Daily weight. Echocardiogram shows an EF of 60%. Juan Jose wraps bilateral lower extremities. 2. Large bilateral pleural effusions- Patient underwent right thoracentesis today with removal of 1420 mL blood-tinged fluid. Pulmonary consulted. Patient has right Pleurx catheter. Patient reports Pleurx catheter was placed due to uncontrolled CHF with frequent thoracentesis. 3. Chronic kidney disease stage III-stable, trend BMP. 4. Hypertension-stable, continue home carvedilol, amlodipine regimen. 5. Hyperlipidemia-continue statin. 6. COPD-no acute exacerbation. Continue DuoNeb aerosols. 7. Type 2 diabetes [id number] before meals at bedtime with sliding scale insulin. 8. BPH-continue home doxazosin regimen. 9. Chronic macrocytic anemia-stable, trend CBC. Continue iron supplementation. DVT prophylaxis-heparin sc This patient was seen by KARY Black under the supervision of Dr. Crane. <Henry Crane - Last Filed: 05/28/18 13:20> - Physical Exam General: Alert, Cooperative, No apparent distress HEENT: Atraumatic, Normocephalic Oral: Moist Mucosa, No Gingival or Mucosal Lesions/ Ulcerations Neck: No JVD, No Nodes, Thyroid Normal Size and Texture Lungs: No rhonchi, No wheeze, Diminished Cardiovascular: Regular rate, Regular Rhythm, Normal S1, Normal S2, No murmurs Abdomen: Bowel Sounds Present, Non Tender, Non-Distended Extremities: No clubbing, No cyanosis, Edema Skin: No rashes, No breakdown, - Psych/Mental Status: Normal Affect, Appropriate Vital Signs Temp Pulse Resp BP Pulse Ox 36.9 C 64 24 H 138/53 H 96 05/28/18 10:56 05/28/18 12:36 05/28/18 12:36 05/28/18 10:56 05/28/18 12:36 Oxygen Flow Rate (L/min) 4 Oxygen Delivery Method Nasal Cannula Weight: 106.7 kg Body Mass Index (BMI) 33.2 Intake and Output for Last 24 Hours 05/26/18 05/27/18 05/28/18 23:59 23:59 23:59 Intake Total 520 / 520 740 / 740 Output Total 500 / 500 2840 / 2840 Balance -2099 / -2099 Laboratory Tests Past 24 Hrs 05/28/18 05/28/18 05/28/18 06:46 06:46 06:46 WBC 5.1 RBC 2.63 L Hgb 8.0 L Hct 26.9 L MCV 102.3 H MCH 30.4 MCHC 29.7 L RDW 15.6 H RDW Differential 56.3 H Plt Count 146 L MPV 11.2 Immature Gran % (Auto) 0.200 Neut % (Auto) 69.3 Lymph % (Auto) 11.1 L [place] % (Auto) 11.1 H Eos % (Auto) 7.7 H Baso % (Auto) 0.6 Absolute Neuts (auto) 3.5 Absolute Lymphs (auto) 0.56 L Total Counted Not Reportable Differential Comment SCANNED PT INR APTT Sodium 145 Potassium 4.9 Chloride 112 H Carbon Dioxide 27.0 Anion Gap 6 BUN 44 H Creatinine 1.91 H Estim Creat Clear Calc 42.32 Est GFR (MDRD) Af Amer 46 L Est GFR (MDRD) Non-Af 38 L BUN/Creatinine Ratio 23.0 H Glucose 123 H Calcium 8.5 Iron 43 L TIBC 196 L Iron Saturation 21.9 Ferritin 177 Lactate Dehydrogenase 175 Total Protein 5.6 L Globulin 3.3 Albumin/Globulin Ratio 0.7 L Vitamin B12 358 Folate 26.40 TSH 2.50 Fluid Source Fluid Color Fluid Appearance Fluid WBC Fluid RBC Fluid Tot Cell Count Fld Polynuclear WBCs # Fld Polynuclear WBCs % Fluid Mononuclear WBCs Fld Mononuclear WBCs % Fluid Neutrophils Fluid Lymphocytes Fluid Monocytes Fluid Macrophages Fld Mesothelial Cells Fl Pathologist Comment Fluid Glucose Fluid Total Protein Fluid LDH Fluid Comment 2 Miscellaneous Cytology 05/28/18 05/28/18 05/28/18 06:46 10:10 10:20 WBC RBC Hgb Hct MCV MCH MCHC RDW RDW Differential Plt Count MPV Immature Gran % (Auto) Neut % (Auto) Lymph % (Auto) [place] % (Auto) Eos % (Auto) Baso % (Auto) Absolute Neuts (auto) Absolute Lymphs (auto) Total Counted Differential Comment PT 13.6 INR 1.0 APTT 34.6 Sodium Potassium Chloride Carbon Dioxide Anion Gap BUN Creatinine Estim Creat Clear Calc Est GFR (MDRD) Af Amer Est GFR (MDRD) Non-Af BUN/Creatinine Ratio Glucose Calcium Iron TIBC Iron Saturation Ferritin Lactate Dehydrogenase Total Protein Globulin Albumin/Globulin Ratio Vitamin B12 Folate TSH Fluid Source THORACENTESIS Fluid Color RED Fluid Appearance SL CLDY Fluid WBC 0.903 Fluid RBC 0.48825 Fluid Tot Cell Count 0.922 Fld Polynuclear WBCs # 0.041 Fld Polynuclear WBCs % 4.5 Fluid Mononuclear WBCs 0.862 Fld Mononuclear WBCs % 95.5 Fluid Neutrophils 5 Fluid Lymphocytes 78 Fluid Monocytes 4 Fluid Macrophages 10 Fld Mesothelial Cells 3 Fl Pathologist Comment May follow Fluid Glucose 133 H Fluid Total Protein 2.0 Fluid LDH 67 Fluid Comment 2 SEE COMMENT Miscellaneous Cytology 05/28/18 10:20 WBC RBC Hgb Hct MCV MCH MCHC RDW RDW Differential Plt Count MPV Immature Gran % (Auto) Neut % (Auto) Lymph % (Auto) [place] % (Auto) Eos % (Auto) Baso % (Auto) Absolute Neuts (auto) Absolute Lymphs (auto) Total Counted Differential Comment PT INR APTT Sodium Potassium Chloride Carbon Dioxide Anion Gap BUN Creatinine Estim Creat Clear Calc Est GFR (MDRD) Af Amer Est GFR (MDRD) Non-Af BUN/Creatinine Ratio Glucose Calcium Iron TIBC Iron Saturation Ferritin Lactate Dehydrogenase Total Protein Globulin Albumin/Globulin Ratio Vitamin B12 Folate TSH Fluid Source Fluid Color Fluid Appearance Fluid WBC Fluid RBC Fluid Tot Cell Count Fld Polynuclear WBCs # Fld Polynuclear WBCs % Fluid Mononuclear WBCs Fld Mononuclear WBCs % Fluid Neutrophils Fluid Lymphocytes Fluid Monocytes Fluid Macrophages Fld Mesothelial Cells Fl Pathologist Comment Fluid Glucose Fluid Total Protein Fluid LDH Fluid Comment 2 Miscellaneous Cytology Pending POC Glucose 05/28/18 05/28/18 05/28/18 11:07 06:17 00:44 POC Glucose 134 H 135 H 147 H 05/27/18 05/27/18 05/27/18 21:34 17:18 14:07 POC Glucose 133 H 203 H 118 H Assessment/Plan Patient seen and examined independently. Data reviewed. I agree with the above note by the nurse practitioner. 1. Acute HFpEF EF 60% Continue with IV Lasix Patient on hydralazine and isosorbide. Presumably, patient not on JUAN JOSE inhibitor nor angiotensin receptor nafisa given chronic kidney disease 2. Pleural effusion Transudative Reviewed records from [facility] in March: Pt met Dr. Hartman (CTS) and gave the pt the option of pleurodesis v pleurX catheter. Pt opted for the catheter. CT showed loculated pleural effusion. SP thoracentesis today with removal of 1420cc. Plan is for contralateral thoracentesis. Patient will need to follow up with Dr. Hartman to see if replacement would be necessary or to have pleurodesis (patient has not followed up since seeing him in the hospital) In the meantime--diurese 3. Chronic kidney disease stage III Appears stable at this time. Continue to monitor. 4. Slightly elevated troponin Barely over the crest of abnormal at 0.047 I do not suspect any acute coronary syndrome but rather likely cardiac strain due to the patient's underlying CHF. Continue with aspirin, Coreg and atorvastatin Code Visit Inpatient E&M: 84496 Subs Hosp L3
--- NOTE | 2018-05-28 11:59 | PCM.PROGNOTE ---
Patient Problems: Active and Suspected Problems Systolic and diastolic CHF, acute on chronic (Acute) Subjective: Patient did well overnight. Patient did have a thoracentesis today with removal of approximately 1400 cc of fluid. Patient tolerated the procedure well and reports significant subjective improvement in dyspnea. Patient denies any conversational dyspnea at this time. Patient tolerated the procedure well and is denying any chest pain. - Physical Exam General: Alert, Oriented x3, Cooperative, No apparent distress, - - Speaking in full sentences. Much more comfortable compared to yesterday. HEENT: Atraumatic, PERRLA, EOMI, Normocephalic, - - No scleral icterus or injection noted. Oral: Moist Mucosa, No Gingival or Mucosal Lesions/ Ulcerations Neck: Supple, No JVD, No Nodes, Trachea Midline Lungs: No rhonchi, No wheeze, No rales, Diminished - Left base Cardiovascular: Regular rate, Regular Rhythm, Normal S1, Normal S2, No murmurs, No rub noted, No Gallop Abdomen: Bowel Sounds Present, Soft, Non Tender, Non-Distended Extremities: No clubbing, No cyanosis, Capillary Refill Less than 3 Seconds, Edema Skin: No rashes, No breakdown, - - Her centesis site is clean, dry and intact Musculoskeletal: No Tenderness to Palpation of Joints or Extremities Lymphatic: No Cervical, Supraclavicular, or Inguinal Adenopathy Neurological: Cranial nerves II-XII grossly intact, Neuro grossly intact, Motor Exam 5/5 strength throughout Psych/Mental Status: Alert and oriented to time, place, person, mood and affect Vital Signs Temp Pulse Resp BP Pulse Ox 36.9 C 72 22 H 138/53 H 98 05/28/18 10:56 05/28/18 11:32 05/28/18 10:56 05/28/18 10:56 05/28/18 10:56 Oxygen Flow Rate (L/min) 4 Oxygen Delivery Method Nasal Cannula Weight: 106.7 kg Body Mass Index (BMI) 33.2 Intake and Output for Last 24 Hours 05/26/18 05/27/18 05/28/18 23:59 23:59 23:59 Intake Total 520 / 520 240 / 240 Output Total 500 / 500 1420 / 1420 Balance / 20 -1180 / -1180 Laboratory Tests Past 24 Hrs 05/28/18 05/28/18 05/28/18 06:46 06:46 06:46 WBC 5.1 RBC 2.63 L Hgb 8.0 L Hct 26.9 L MCV 102.3 H MCH 30.4 MCHC 29.7 L RDW 15.6 H RDW Differential 56.3 H Plt Count 146 L MPV 11.2 Immature Gran % (Auto) 0.200 Neut % (Auto) 69.3 Lymph % (Auto) 11.1 L [place] % (Auto) 11.1 H Eos % (Auto) 7.7 H Baso % (Auto) 0.6 Absolute Neuts (auto) 3.5 Absolute Lymphs (auto) 0.56 L Total Counted Not Reportable Differential Comment SCANNED PT INR APTT Sodium 145 Potassium 4.9 Chloride 112 H Carbon Dioxide 27.0 Anion Gap 6 BUN 44 H Creatinine 1.91 H Estim Creat Clear Calc 42.32 Est GFR (MDRD) Af Amer 46 L Est GFR (MDRD) Non-Af 38 L BUN/Creatinine Ratio 23.0 H Glucose 123 H Calcium 8.5 Iron 43 L TIBC 196 L Iron Saturation 21.9 Ferritin 177 Lactate Dehydrogenase 175 Total Protein 5.6 L Globulin 3.3 Albumin/Globulin Ratio 0.7 L Vitamin B12 358 Folate 26.40 TSH 2.50 Fluid Source Fluid Color Fluid Appearance Fluid WBC Fluid RBC Fluid Tot Cell Count Fld Polynuclear WBCs # Fld Polynuclear WBCs % Fluid Mononuclear WBCs Fld Mononuclear WBCs % Fluid Neutrophils Fluid Lymphocytes Fluid Monocytes Fluid Macrophages Fld Mesothelial Cells Fl Pathologist Comment Fluid Glucose Fluid Total Protein Fluid LDH Fluid Comment 2 Miscellaneous Cytology 05/28/18 05/28/18 05/28/18 06:46 10:10 10:20 WBC RBC Hgb Hct MCV MCH MCHC RDW RDW Differential Plt Count MPV Immature Gran % (Auto) Neut % (Auto) Lymph % (Auto) [place] % (Auto) Eos % (Auto) Baso % (Auto) Absolute Neuts (auto) Absolute Lymphs (auto) Total Counted Differential Comment PT 13.6 INR 1.0 APTT 34.6 Sodium Potassium Chloride Carbon Dioxide Anion Gap BUN Creatinine Estim Creat Clear Calc Est GFR (MDRD) Af Amer Est GFR (MDRD) Non-Af BUN/Creatinine Ratio Glucose Calcium Iron TIBC Iron Saturation Ferritin Lactate Dehydrogenase Total Protein Globulin Albumin/Globulin Ratio Vitamin B12 Folate TSH Fluid Source THORACENTESIS Fluid Color RED Fluid Appearance SL CLDY Fluid WBC 0.903 Fluid RBC 0.29157 Fluid Tot Cell Count 0.922 Fld Polynuclear WBCs # 0.041 Fld Polynuclear WBCs % 4.5 Fluid Mononuclear WBCs 0.862 Fld Mononuclear WBCs % 95.5 Fluid Neutrophils 5 Fluid Lymphocytes 78 Fluid Monocytes 4 Fluid Macrophages 10 Fld Mesothelial Cells 3 Fl Pathologist Comment May follow Fluid Glucose 133 H Fluid Total Protein 2.0 Fluid LDH 67 Fluid Comment 2 SEE COMMENT Miscellaneous Cytology 05/28/18 10:20 WBC RBC Hgb Hct MCV MCH MCHC RDW RDW Differential Plt Count MPV Immature Gran % (Auto) Neut % (Auto) Lymph % (Auto) [place] % (Auto) Eos % (Auto) Baso % (Auto) Absolute Neuts (auto) Absolute Lymphs (auto) Total Counted Differential Comment PT INR APTT Sodium Potassium Chloride Carbon Dioxide Anion Gap BUN Creatinine Estim Creat Clear Calc Est GFR (MDRD) Af Amer Est GFR (MDRD) Non-Af BUN/Creatinine Ratio Glucose Calcium Iron TIBC Iron Saturation Ferritin Lactate Dehydrogenase Total Protein Globulin Albumin/Globulin Ratio Vitamin B12 Folate TSH Fluid Source Fluid Color Fluid Appearance Fluid WBC Fluid RBC Fluid Tot Cell Count Fld Polynuclear WBCs # Fld Polynuclear WBCs % Fluid Mononuclear WBCs Fld Mononuclear WBCs % Fluid Neutrophils Fluid Lymphocytes Fluid Monocytes Fluid Macrophages Fld Mesothelial Cells Fl Pathologist Comment Fluid Glucose Fluid Total Protein Fluid LDH Fluid Comment 2 Miscellaneous Cytology Pending POC Glucose 05/28/18 05/28/18 05/28/18 11:07 06:17 00:44 POC Glucose 134 H 135 H 147 H 05/27/18 05/27/18 05/27/18 21:34 17:18 14:07 POC Glucose 133 H 203 H 118 H Clinical Impression(s) from Imaging Studies Chest CT 05/27/18 07:31 IMPRESSION: 1. Moderate size, probably loculated right pleural effusion present, predominantly inferior to right basilar airspace disease with probable atelectasis. Active infection not excluded. A right chest tube is present, positioned between the basilar airspace disease and the pleural effusion. This tube may need repositioning or replacement to most effectively evacuated the pleural effusion. 2. Dependent small to moderate left pleural effusion also present. Airspace disease in the adjacent left lower lobe and lingula of left upper lobe is likely atelectasis, but again, infection is not excluded. 3. There is mediastinal adenopathy, likely reactive. 4. There are findings of old right calcified granulomatous disease. 5. Borderline to mild cardiac enlargement mild atherosclerotic calcifications of the coronary arteries and thoracic aorta. 6. 2.4 cm structure of indeterminate etiology at the lateral margin of the upper to midpole of the right kidney. This might be further characterized with ultrasound, IV contrast enhanced CT, or MRI. N.B. : The above information has been verbally conveyed by Jim Boland MD to Office nurse, NICOLÁS, on 05/27/2018 12:53:09 (ET). Electronically Signed: iJm Boland MD at 13:02 EDT , Service support , Thoracentesis Ultrasound 05/28/18 09:30 IMPRESSION: Ultrasound-guided right thoracentesis. Electronically Signed: Chilo Ulrich MD at 11:08 EDT Tel [phone], Service support , Medical Necessity - Tobacco Use Smoking Status: Former smoker Assessment/Plan All Active Problems Acute respiratory failure (Acute) Shortness of breath (Acute) HCAP (healthcare-associated pneumonia) (Ruled-out) Systolic and diastolic CHF, acute on chronic (Acute) RECOMMENDATIONS: 1. Consider therapeutic thoracentesis of the left side tomorrow 2. Okay to continue with diuretic therapy 3. Walking oximetry prior to discharge 4. Wean oxygen as tolerated IMPRESSIONS: 1. Acute hypoxic respiratory failure secondary to acute on chronic combined CHF Total effusion is consistent with a transudative process such as congestive heart failure. Patient is responded well. Continue to wean oxygen as tolerated. Patient may require a thoracentesis of the left side. Outpatient evaluation of Pleurx catheter can be obtained at [facility]. Would recommend discontinuation from my perspective, but we did not place the Pleurx catheter. Patient may require no supplemental oxygen on discharge if both sides of pleural effusion are tapped and removed. 2. 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 Patient has been given Lasix therapy, so we will need to watch closely. Blood sugars can be followed. Patient currently n.p.o. Sliding scale insulin would be appropriate. Would avoid metformin therapy for reported diabetes mellitus secondary to renal function and age. 3. Obesity/hypertension/hypertriglyceridemia/recurrent admissions/BPH/reported COPD Complicates care, management, recovery and prognosis. Okay to continue with baseline medications. Encourage weight loss. No PFTs are available for confirmation of COPD. Patient can remain on bronchodilators as needed. Patient does not appear to be in acute exacerbation of COPD at this time. Code Visit Inpatient E&M: 95122 Subs Hosp L2
--- NOTE | 2018-05-28 12:03 | PN_ITS ---
Patient Problems: Active and Suspected Problems Systolic and diastolic CHF, acute on chronic (Acute) Subjective: Patient did well overnight. Patient did have a thoracentesis today with removal of approximately 1400 cc of fluid. Patient tolerated the procedure well and reports significant subjective improvement in dyspnea. Patient denies any conversational dyspnea at this time. Patient tolerated the procedure well and is denying any chest pain. - Physical Exam General: Alert, Oriented x3, Cooperative, No apparent distress, - - Speaking in full sentences. Much more comfortable compared to yesterday. HEENT: Atraumatic, PERRLA, EOMI, Normocephalic, - - No scleral icterus or injection noted. Oral: Moist Mucosa, No Gingival or Mucosal Lesions/ Ulcerations Neck: Supple, No JVD, No Nodes, Trachea Midline Lungs: No rhonchi, No wheeze, No rales, Diminished - Left base Cardiovascular: Regular rate, Regular Rhythm, Normal S1, Normal S2, No murmurs, No rub noted, No Gallop Abdomen: Bowel Sounds Present, Soft, Non Tender, Non-Distended Extremities: No clubbing, No cyanosis, Capillary Refill Less than 3 Seconds, Edema Skin: No rashes, No breakdown, - - Her centesis site is clean, dry and intact Musculoskeletal: No Tenderness to Palpation of Joints or Extremities Lymphatic: No Cervical, Supraclavicular, or Inguinal Adenopathy Neurological: Cranial nerves II-XII grossly intact, Neuro grossly intact, Motor Exam 5/5 strength throughout Psych/Mental Status: Alert and oriented to time, place, person, mood and affect Vital Signs Temp Pulse Resp BP Pulse Ox 36.9 C 72 22 H 138/53 H 98 05/28/18 10:56 05/28/18 11:32 05/28/18 10:56 05/28/18 10:56 05/28/18 10:56 Oxygen Flow Rate (L/min) 4 Oxygen Delivery Method Nasal Cannula Weight: 106.7 kg Body Mass Index (BMI) 33.2 Intake and Output for Last 24 Hours 05/26/18 05/27/18 05/28/18 23:59 23:59 23:59 Intake Total 520 / 520 240 / 240 Output Total 500 / 500 1420 / 1420 Balance / 20 -1180 / -1180 Laboratory Tests Past 24 Hrs 05/28/18 05/28/18 05/28/18 06:46 06:46 06:46 WBC 5.1 RBC 2.63 L Hgb 8.0 L Hct 26.9 L MCV 102.3 H MCH 30.4 MCHC 29.7 L RDW 15.6 H RDW Differential 56.3 H Plt Count 146 L MPV 11.2 Immature Gran % (Auto) 0.200 Neut % (Auto) 69.3 Lymph % (Auto) 11.1 L [place] % (Auto) 11.1 H Eos % (Auto) 7.7 H Baso % (Auto) 0.6 Absolute Neuts (auto) 3.5 Absolute Lymphs (auto) 0.56 L Total Counted Not Reportable Differential Comment SCANNED PT INR APTT Sodium 145 Potassium 4.9 Chloride 112 H Carbon Dioxide 27.0 Anion Gap 6 BUN 44 H Creatinine 1.91 H Estim Creat Clear Calc 42.32 Est GFR (MDRD) Af Amer 46 L Est GFR (MDRD) Non-Af 38 L BUN/Creatinine Ratio 23.0 H Glucose 123 H Calcium 8.5 Iron 43 L TIBC 196 L Iron Saturation 21.9 Ferritin 177 Lactate Dehydrogenase 175 Total Protein 5.6 L Globulin 3.3 Albumin/Globulin Ratio 0.7 L Vitamin B12 358 Folate 26.40 TSH 2.50 Fluid Source Fluid Color Fluid Appearance Fluid WBC Fluid RBC Fluid Tot Cell Count Fld Polynuclear WBCs # Fld Polynuclear WBCs % Fluid Mononuclear WBCs Fld Mononuclear WBCs % Fluid Neutrophils Fluid Lymphocytes Fluid Monocytes Fluid Macrophages Fld Mesothelial Cells Fl Pathologist Comment Fluid Glucose Fluid Total Protein Fluid LDH Fluid Comment 2 Miscellaneous Cytology 05/28/18 05/28/18 05/28/18 06:46 10:10 10:20 WBC RBC Hgb Hct MCV MCH MCHC RDW RDW Differential Plt Count MPV Immature Gran % (Auto) Neut % (Auto) Lymph % (Auto) [place] % (Auto) Eos % (Auto) Baso % (Auto) Absolute Neuts (auto) Absolute Lymphs (auto) Total Counted Differential Comment PT 13.6 INR 1.0 APTT 34.6 Sodium Potassium Chloride Carbon Dioxide Anion Gap BUN Creatinine Estim Creat Clear Calc Est GFR (MDRD) Af Amer Est GFR (MDRD) Non-Af BUN/Creatinine Ratio Glucose Calcium Iron TIBC Iron Saturation Ferritin Lactate Dehydrogenase Total Protein Globulin Albumin/Globulin Ratio Vitamin B12 Folate TSH Fluid Source THORACENTESIS Fluid Color RED Fluid Appearance SL CLDY Fluid WBC 0.903 Fluid RBC 0.46292 Fluid Tot Cell Count 0.922 Fld Polynuclear WBCs # 0.041 Fld Polynuclear WBCs % 4.5 Fluid Mononuclear WBCs 0.862 Fld Mononuclear WBCs % 95.5 Fluid Neutrophils 5 Fluid Lymphocytes 78 Fluid Monocytes 4 Fluid Macrophages 10 Fld Mesothelial Cells 3 Fl Pathologist Comment May follow Fluid Glucose 133 H Fluid Total Protein 2.0 Fluid LDH 67 Fluid Comment 2 SEE COMMENT Miscellaneous Cytology 05/28/18 10:20 WBC RBC Hgb Hct MCV MCH MCHC RDW RDW Differential Plt Count MPV Immature Gran % (Auto) Neut % (Auto) Lymph % (Auto) [place] % (Auto) Eos % (Auto) Baso % (Auto) Absolute Neuts (auto) Absolute Lymphs (auto) Total Counted Differential Comment PT INR APTT Sodium Potassium Chloride Carbon Dioxide Anion Gap BUN Creatinine Estim Creat Clear Calc Est GFR (MDRD) Af Amer Est GFR (MDRD) Non-Af BUN/Creatinine Ratio Glucose Calcium Iron TIBC Iron Saturation Ferritin Lactate Dehydrogenase Total Protein Globulin Albumin/Globulin Ratio Vitamin B12 Folate TSH Fluid Source Fluid Color Fluid Appearance Fluid WBC Fluid RBC Fluid Tot Cell Count Fld Polynuclear WBCs # Fld Polynuclear WBCs % Fluid Mononuclear WBCs Fld Mononuclear WBCs % Fluid Neutrophils Fluid Lymphocytes Fluid Monocytes Fluid Macrophages Fld Mesothelial Cells Fl Pathologist Comment Fluid Glucose Fluid Total Protein Fluid LDH Fluid Comment 2 Miscellaneous Cytology Pending POC Glucose 05/28/18 05/28/18 05/28/18 11:07 06:17 00:44 POC Glucose 134 H 135 H 147 H 05/27/18 05/27/18 05/27/18 21:34 17:18 14:07 POC Glucose 133 H 203 H 118 H Clinical Impression(s) from Imaging Studies Chest CT 05/27/18 07:31 IMPRESSION: 1. Moderate size, probably loculated right pleural effusion present, predominantly inferior to right basilar airspace disease with probable atelectasis. Active infection not excluded. A right chest tube is present, positioned between the basilar airspace disease and the pleural effusion. This tube may need repositioning or replacement to most effectively evacuated the pleural effusion. 2. Dependent small to moderate left pleural effusion also present. Airspace disease in the adjacent left lower lobe and lingula of left upper lobe is likely atelectasis, but again, infection is not excluded. 3. There is mediastinal adenopathy, likely reactive. 4. There are findings of old right calcified granulomatous disease. 5. Borderline to mild cardiac enlargement mild atherosclerotic calcifications of the coronary arteries and thoracic aorta. 6. 2.4 cm structure of indeterminate etiology at the lateral margin of the upper to midpole of the right kidney. This might be further characterized with ultrasound, IV contrast enhanced CT, or MRI. N.B. : The above information has been verbally conveyed by Jim Boland MD to Office nurse, NICOLÁS, on 05/27/2018 12:53:09 (ET). Electronically Signed: Jim Boland MD at 13:02 EDT , Service support , Thoracentesis Ultrasound 05/28/18 09:30 IMPRESSION: Ultrasound-guided right thoracentesis. Electronically Signed: Chilo Ulrich MD at 11:08 EDT Tel [phone], Service support , Medical Necessity - Tobacco Use Smoking Status: Former smoker Assessment/Plan All Active Problems Acute respiratory failure (Acute) Shortness of breath (Acute) HCAP (healthcare-associated pneumonia) (Ruled-out) Systolic and diastolic CHF, acute on chronic (Acute) RECOMMENDATIONS: 1. Consider therapeutic thoracentesis of the left side tomorrow 2. Okay to continue with diuretic therapy 3. Walking oximetry prior to discharge 4. Wean oxygen as tolerated IMPRESSIONS: 1. Acute hypoxic respiratory failure secondary to acute on chronic combined CHF Total effusion is consistent with a transudative process such as congestive heart failure. Patient is responded well. Continue to wean oxygen as tolerated. Patient may require a thoracentesis of the left side. Outpatient evaluation of Pleurx catheter can be obtained at [facility]. Would recommend discontinuation from my perspective, but we did not place the Pleurx catheter. Patient may require no supplemental oxygen on discharge if both sides of pleural effusion are tapped and removed. 2. 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 Patient has been given Lasix therapy, so we will need to watch closely. Blood sugars can be followed. Patient currently n.p.o. Sliding scale insulin would be appropriate. Would avoid metformin therapy for reported diabetes mellitus secondary to renal function and age. 3. Obesity/hypertension/hypertriglyceridemia/recurrent admissions/BPH/reported COPD Complicates care, management, recovery and prognosis. Okay to continue with baseline medications. Encourage weight loss. No PFTs are available for confirmation of COPD. Patient can remain on bronchodilators as needed. Patient does not appear to be in acute exacerbation of COPD at this time. Code Visit Inpatient E&M: 09065 Subs Hosp L2
--- NOTE | 2018-05-28 12:06 | PN_ITS ---
<Karissa Holley - Last Filed: 05/28/18 12:06> Patient Problems: Active and Suspected Problems Systolic and diastolic CHF, acute on chronic (Acute) Subjective: Patient seen and examined. Notes improvement in breathing status post right thoracentesis this morning. No other current complaints. - Physical Exam General: Alert, Oriented x3, Cooperative HEENT: Atraumatic, PERRLA, EOMI, Normocephalic Neck: Supple, No JVD, Negative Carotid Bruits Lungs: Clear to auscultation, Diminished Cardiovascular: Regular rate, Regular Rhythm, Normal S1, Normal S2, No murmurs Abdomen: Bowel Sounds Present, Soft, Non Tender, Non-Distended, Obese Extremities: No clubbing, No cyanosis, Edema - BLLE Skin: No rashes, No breakdown, - - Left foot wound. Dressing intact. Musculoskeletal: No Tenderness to Palpation of Joints or Extremities Neurological: Cranial nerves II-XII grossly intact, Neuro grossly intact Psych/Mental Status: Normal Affect, Appropriate Vital Signs Temp Pulse Resp BP Pulse Ox 98.4 F 72 22 H 138/53 H 98 05/28/18 10:56 05/28/18 11:32 05/28/18 10:56 05/28/18 10:56 05/28/18 10:56 Oxygen Flow Rate (L/min) 4 Oxygen Delivery Method Nasal Cannula Weight: 235 lb 3.732 oz Body Mass Index (BMI) 33.2 Intake and Output for Last 24 Hours 05/26/18 05/27/18 05/28/18 23:59 23:59 23:59 Intake Total 520 / 520 240 / 240 Output Total 500 / 500 1420 / 1420 Balance -1180 / -1180 Laboratory Tests Past 24 Hrs 05/28/18 05/28/18 05/28/18 06:46 06:46 06:46 WBC 5.1 RBC 2.63 L Hgb 8.0 L Hct 26.9 L MCV 102.3 H MCH 30.4 MCHC 29.7 L RDW 15.6 H RDW Differential 56.3 H Plt Count 146 L MPV 11.2 Immature Gran % (Auto) 0.200 Neut % (Auto) 69.3 Lymph % (Auto) 11.1 L [place] % (Auto) 11.1 H Eos % (Auto) 7.7 H Baso % (Auto) 0.6 Absolute Neuts (auto) 3.5 Absolute Lymphs (auto) 0.56 L Total Counted Not Reportable Differential Comment SCANNED PT INR APTT Sodium 145 Potassium 4.9 Chloride 112 H Carbon Dioxide 27.0 Anion Gap 6 BUN 44 H Creatinine 1.91 H Estim Creat Clear Calc 42.32 Est GFR (MDRD) Af Amer 46 L Est GFR (MDRD) Non-Af 38 L BUN/Creatinine Ratio 23.0 H Glucose 123 H Calcium 8.5 Iron 43 L TIBC 196 L Iron Saturation 21.9 Ferritin 177 Lactate Dehydrogenase 175 Total Protein 5.6 L Globulin 3.3 Albumin/Globulin Ratio 0.7 L Vitamin B12 358 Folate 26.40 TSH 2.50 Fluid Source Fluid Color Fluid Appearance Fluid WBC Fluid RBC Fluid Tot Cell Count Fld Polynuclear WBCs # Fld Polynuclear WBCs % Fluid Mononuclear WBCs Fld Mononuclear WBCs % Fluid Neutrophils Fluid Lymphocytes Fluid Monocytes Fluid Macrophages Fld Mesothelial Cells Fl Pathologist Comment Fluid Glucose Fluid Total Protein Fluid LDH Fluid Comment 2 Miscellaneous Cytology 05/28/18 05/28/18 05/28/18 06:46 10:10 10:20 WBC RBC Hgb Hct MCV MCH MCHC RDW RDW Differential Plt Count MPV Immature Gran % (Auto) Neut % (Auto) Lymph % (Auto) [place] % (Auto) Eos % (Auto) Baso % (Auto) Absolute Neuts (auto) Absolute Lymphs (auto) Total Counted Differential Comment PT 13.6 INR 1.0 APTT 34.6 Sodium Potassium Chloride Carbon Dioxide Anion Gap BUN Creatinine Estim Creat Clear Calc Est GFR (MDRD) Af Amer Est GFR (MDRD) Non-Af BUN/Creatinine Ratio Glucose Calcium Iron TIBC Iron Saturation Ferritin Lactate Dehydrogenase Total Protein Globulin Albumin/Globulin Ratio Vitamin B12 Folate TSH Fluid Source Pending Fluid Color Pending Fluid Appearance Pending Fluid WBC 0.903 Fluid RBC 0.56467 Fluid Tot Cell Count 0.922 Fld Polynuclear WBCs # 0.041 Fld Polynuclear WBCs % 4.5 Fluid Mononuclear WBCs 0.862 Fld Mononuclear WBCs % 95.5 Fluid Neutrophils 5 Fluid Lymphocytes 78 Fluid Monocytes 4 Fluid Macrophages 10 Fld Mesothelial Cells 3 Fl Pathologist Comment Pending Fluid Glucose 133 H Fluid Total Protein 2.0 Fluid LDH 67 Fluid Comment 2 Pending Miscellaneous Cytology 05/28/18 10:20 WBC RBC Hgb Hct MCV MCH MCHC RDW RDW Differential Plt Count MPV Immature Gran % (Auto) Neut % (Auto) Lymph % (Auto) [place] % (Auto) Eos % (Auto) Baso % (Auto) Absolute Neuts (auto) Absolute Lymphs (auto) Total Counted Differential Comment PT INR APTT Sodium Potassium Chloride Carbon Dioxide Anion Gap BUN Creatinine Estim Creat Clear Calc Est GFR (MDRD) Af Amer Est GFR (MDRD) Non-Af BUN/Creatinine Ratio Glucose Calcium Iron TIBC Iron Saturation Ferritin Lactate Dehydrogenase Total Protein Globulin Albumin/Globulin Ratio Vitamin B12 Folate TSH Fluid Source Fluid Color Fluid Appearance Fluid WBC Fluid RBC Fluid Tot Cell Count Fld Polynuclear WBCs # Fld Polynuclear WBCs % Fluid Mononuclear WBCs Fld Mononuclear WBCs % Fluid Neutrophils Fluid Lymphocytes Fluid Monocytes Fluid Macrophages Fld Mesothelial Cells Fl Pathologist Comment Fluid Glucose Fluid Total Protein Fluid LDH Fluid Comment 2 Miscellaneous Cytology Pending POC Glucose 05/28/18 05/28/18 05/28/18 11:07 06:17 00:44 POC Glucose 134 H 135 H 147 H 05/27/18 05/27/18 05/27/18 21:34 17:18 14:07 POC Glucose 133 H 203 H 118 H Medical Necessity - Tobacco Use Smoking Status: Former smoker Assessment/Plan All Active Problems Acute respiratory failure (Acute) Shortness of breath (Acute) HCAP (healthcare-associated pneumonia) (Ruled-out) Systolic and diastolic CHF, acute on chronic (Acute) 1. Acute on chronic hypoxic respiratory failure secondary to acute diastolic CHF-chest x-ray on admission showed worsening bilateral lower lobe opacity. Large bilateral effusions. Continue IV Lasix. Strict I&O. Daily weight. Echocardiogram shows an EF of 60%. Juan Jose wraps bilateral lower extremities. 2. Large bilateral pleural effusions- Patient underwent right thoracentesis today with removal of 1420 mL blood-tinged fluid. Pulmonary consulted. Patient has right Pleurx catheter. Patient reports Pleurx catheter was placed due to uncontrolled CHF with frequent thoracentesis. 3. Chronic kidney disease stage III-stable, trend BMP. 4. Hypertension-stable, continue home carvedilol, amlodipine regimen. 5. Hyperlipidemia-continue statin. 6. COPD-no acute exacerbation. Continue DuoNeb aerosols. 7. Type 2 diabetes [id number] before meals at bedtime with sliding scale insulin. 8. BPH-continue home doxazosin regimen. 9. Chronic macrocytic anemia-stable, trend CBC. Continue iron supplementation. DVT prophylaxis-heparin sc This patient was seen by KARY Black under the supervision of Dr. Crane. <Henry Crane - Last Filed: 05/28/18 13:20> - Physical Exam General: Alert, Cooperative, No apparent distress HEENT: Atraumatic, Normocephalic Oral: Moist Mucosa, No Gingival or Mucosal Lesions/ Ulcerations Neck: No JVD, No Nodes, Thyroid Normal Size and Texture Lungs: No rhonchi, No wheeze, Diminished Cardiovascular: Regular rate, Regular Rhythm, Normal S1, Normal S2, No murmurs Abdomen: Bowel Sounds Present, Non Tender, Non-Distended Extremities: No clubbing, No cyanosis, Edema Skin: No rashes, No breakdown, - Psych/Mental Status: Normal Affect, Appropriate Vital Signs Temp Pulse Resp BP Pulse Ox 36.9 C 64 24 H 138/53 H 96 05/28/18 10:56 05/28/18 12:36 05/28/18 12:36 05/28/18 10:56 05/28/18 12:36 Oxygen Flow Rate (L/min) 4 Oxygen Delivery Method Nasal Cannula Weight: 106.7 kg Body Mass Index (BMI) 33.2 Intake and Output for Last 24 Hours 05/26/18 05/27/18 05/28/18 23:59 23:59 23:59 Intake Total 520 / 520 740 / 740 Output Total 500 / 500 2840 / 2840 Balance -2099 / -2099 Laboratory Tests Past 24 Hrs 05/28/18 05/28/18 05/28/18 06:46 06:46 06:46 WBC 5.1 RBC 2.63 L Hgb 8.0 L Hct 26.9 L MCV 102.3 H MCH 30.4 MCHC 29.7 L RDW 15.6 H RDW Differential 56.3 H Plt Count 146 L MPV 11.2 Immature Gran % (Auto) 0.200 Neut % (Auto) 69.3 Lymph % (Auto) 11.1 L [place] % (Auto) 11.1 H Eos % (Auto) 7.7 H Baso % (Auto) 0.6 Absolute Neuts (auto) 3.5 Absolute Lymphs (auto) 0.56 L Total Counted Not Reportable Differential Comment SCANNED PT INR APTT Sodium 145 Potassium 4.9 Chloride 112 H Carbon Dioxide 27.0 Anion Gap 6 BUN 44 H Creatinine 1.91 H Estim Creat Clear Calc 42.32 Est GFR (MDRD) Af Amer 46 L Est GFR (MDRD) Non-Af 38 L BUN/Creatinine Ratio 23.0 H Glucose 123 H Calcium 8.5 Iron 43 L TIBC 196 L Iron Saturation 21.9 Ferritin 177 Lactate Dehydrogenase 175 Total Protein 5.6 L Globulin 3.3 Albumin/Globulin Ratio 0.7 L Vitamin B12 358 Folate 26.40 TSH 2.50 Fluid Source Fluid Color Fluid Appearance Fluid WBC Fluid RBC Fluid Tot Cell Count Fld Polynuclear WBCs # Fld Polynuclear WBCs % Fluid Mononuclear WBCs Fld Mononuclear WBCs % Fluid Neutrophils Fluid Lymphocytes Fluid Monocytes Fluid Macrophages Fld Mesothelial Cells Fl Pathologist Comment Fluid Glucose Fluid Total Protein Fluid LDH Fluid Comment 2 Miscellaneous Cytology 05/28/18 05/28/18 05/28/18 06:46 10:10 10:20 WBC RBC Hgb Hct MCV MCH MCHC RDW RDW Differential Plt Count MPV Immature Gran % (Auto) Neut % (Auto) Lymph % (Auto) [place] % (Auto) Eos % (Auto) Baso % (Auto) Absolute Neuts (auto) Absolute Lymphs (auto) Total Counted Differential Comment PT 13.6 INR 1.0 APTT 34.6 Sodium Potassium Chloride Carbon Dioxide Anion Gap BUN Creatinine Estim Creat Clear Calc Est GFR (MDRD) Af Amer Est GFR (MDRD) Non-Af BUN/Creatinine Ratio Glucose Calcium Iron TIBC Iron Saturation Ferritin Lactate Dehydrogenase Total Protein Globulin Albumin/Globulin Ratio Vitamin B12 Folate TSH Fluid Source THORACENTESIS Fluid Color RED Fluid Appearance SL CLDY Fluid WBC 0.903 Fluid RBC 0.22456 Fluid Tot Cell Count 0.922 Fld Polynuclear WBCs # 0.041 Fld Polynuclear WBCs % 4.5 Fluid Mononuclear WBCs 0.862 Fld Mononuclear WBCs % 95.5 Fluid Neutrophils 5 Fluid Lymphocytes 78 Fluid Monocytes 4 Fluid Macrophages 10 Fld Mesothelial Cells 3 Fl Pathologist Comment May follow Fluid Glucose 133 H Fluid Total Protein 2.0 Fluid LDH 67 Fluid Comment 2 SEE COMMENT Miscellaneous Cytology 05/28/18 10:20 WBC RBC Hgb Hct MCV MCH MCHC RDW RDW Differential Plt Count MPV Immature Gran % (Auto) Neut % (Auto) Lymph % (Auto) [place] % (Auto) Eos % (Auto) Baso % (Auto) Absolute Neuts (auto) Absolute Lymphs (auto) Total Counted Differential Comment PT INR APTT Sodium Potassium Chloride Carbon Dioxide Anion Gap BUN Creatinine Estim Creat Clear Calc Est GFR (MDRD) Af Amer Est GFR (MDRD) Non-Af BUN/Creatinine Ratio Glucose Calcium Iron TIBC Iron Saturation Ferritin Lactate Dehydrogenase Total Protein Globulin Albumin/Globulin Ratio Vitamin B12 Folate TSH Fluid Source Fluid Color Fluid Appearance Fluid WBC Fluid RBC Fluid Tot Cell Count Fld Polynuclear WBCs # Fld Polynuclear WBCs % Fluid Mononuclear WBCs Fld Mononuclear WBCs % Fluid Neutrophils Fluid Lymphocytes Fluid Monocytes Fluid Macrophages Fld Mesothelial Cells Fl Pathologist Comment Fluid Glucose Fluid Total Protein Fluid LDH Fluid Comment 2 Miscellaneous Cytology Pending POC Glucose 05/28/18 05/28/18 05/28/18 11:07 06:17 00:44 POC Glucose 134 H 135 H 147 H 05/27/18 05/27/18 05/27/18 21:34 17:18 14:07 POC Glucose 133 H 203 H 118 H Assessment/Plan Patient seen and examined independently. Data reviewed. I agree with the above note by the nurse practitioner. 1. Acute HFpEF * EF 60% * Continue with IV Lasix * Patient on hydralazine and isosorbide. Presumably, patient not on JUAN JOSE inhibitor nor angiotensin receptor nafisa given chronic kidney disease 2. Pleural effusion * Transudative * Reviewed records from [facility] in March: Pt met Dr. Hartman (CTS) and gave the pt the option of pleurodesis v pleurX catheter. Pt opted for the catheter. * CT showed loculated pleural effusion. * SP thoracentesis today with removal of 1420cc. Plan is for contralateral thoracentesis. * Patient will need to follow up with Dr. Hartman to see if replacement would be necessary or to have pleurodesis (patient has not followed up since seeing him in the hospital) * In the meantime--diurese 3. Chronic kidney disease stage III * Appears stable at this time. Continue to monitor. 4. Slightly elevated troponin * Barely over the crest of abnormal at 0.047 I do not suspect any acute coronary syndrome but rather likely cardiac strain due to the patient's underlying CHF. * Continue with aspirin, Coreg and atorvastatin Code Visit Inpatient E&M: [id number] Subs Hosp L3
--- NOTE | 2018-05-28 13:41 | NURSING ---
this rn reviewed student nurse charting.
[2018-05-28] MEDS: Insulin Lispro 100 UNIT/ML INSULN.PEN SC (17:08)
[2018-05-28 17:21] LABS: Bedside Glucose 205 mg/dL (70-110)
[2018-05-28] MEDS: Doxazosin 4 MG Tablet PO (22:44)
[2018-05-28] MEDS: Heparin Injection (Vial) 5,000 UNIT/ML VIAL 5000 UNIT SC (22:45)
[2018-05-28] MEDS: Atorvastatin Calcium 40 MG Tablet PO (22:45)
[2018-05-28 23:00] LABS: Bedside Glucose 147 mg/dL (70-110)
[2018-05-29] VITALS (12 sets, daily range): BP systolic 139–154; BP diastolic 48–62; PULSE 64–78; RESP 16–20; TEMP 36.6–36.9; O2SAT 90–94
[2018-05-29] MEDS: Ipratropium/Albuterol Sulfate 3 ML AMPUL.NEB INHALATION ×3 (00:05→13:18)
--- NOTE | 2018-05-29 00:05 | US_ITS ---
STUDY: SUPERFICIAL ULTRASOUND - CHEST. REASON FOR EXAM: Male, 67 years old. Possible pleural effusion and thoracentesis. TECHNIQUE: A superficial ultrasound was performed with real-time and static aguilar-scale imaging. COMPARISON: None. FINDINGS: Imaging of both pleural spaces were obtained. No significant pleural effusion is seen for a safe thoracentesis. US/Chest IMPRESSION: No significant pleural effusion is seen. Electronically Signed: Chilo Ulrich MD at 9:00 EDT Tel [phone], Service support ,
[2018-05-29 05:46] LABS: Hematocrit 26.4 % (40-54); Hemoglobin 7.9 g/dl (13.0-16.5); Mean Corp Hgb Conc 29.9 g/gl (32-36); Mean Corpuscular Hgb 30.4 pg (27.0-32.0); Mean Corpuscular Volume 101.5 fL (80-94); Mean Platelet Vol. 11.5 fl (6.2-12.0); Platelet Count 139 K/mm3 (150-450); RBC Distribution Width CV 15.2 % (11.6-14.6); White Blood Count 5.8 K/mm3 (4.4-11.0)
[2018-05-29 05:47] LABS: Scan Indicated on CBC? Y/N NO
[2018-05-29] MEDS: hydrALAZINE 25 MG Tablet 75 MG PO ×2 (05:55→14:44)
[2018-05-29] MEDS: Insulin Lispro 100 UNIT/ML INSULN.PEN SC ×2 (05:56→12:18)
[2018-05-29 06:05] LABS: Bedside Glucose 165 mg/dL (70-110)
[2018-05-29 06:08] LABS: Anion Gap 5 (5-15); BUN 44 mg/dL (7-18); BUN/Creat Ratio 22.6 RATIO (10-20); Calcium,Total 8.3 mg/dL (8.5-10.1); Chloride 109 mmol/L (98-107); Creatinine, Serum 1.95 mg/dL (0.70-1.30); EST Glomerular Filtration Rate 37 mL/min (>60); Est Glom Filt Rate - Afr Amer 45 mL/min (>60); Estimated Creatinine Clearance 41.45 ml/min; Glucose 155 mg/dL (74-106); Potassium 4.7 mmol/L (3.5-5.1); Sodium Level 141 mmol/L (136-145)
[2018-05-29] MEDS: Carvedilol 6.25 MG Tablet PO (09:01)
[2018-05-29] MEDS: 0.9% NaCl Peripheral Flush Adult/Peds IV (09:01)
[2018-05-29] MEDS: amLODIPine 5 MG Tablet PO (09:01)
[2018-05-29] MEDS: Multivitamins,Therapeutic Tablet 1 TABLET PO (09:01)
[2018-05-29] MEDS: Iron Polysaccharide Complex 150 MG CAPSULE PO (09:01)
[2018-05-29] MEDS: Furosemide 40 MG/4 ML Vial IV (09:01)
[2018-05-29] MEDS: Loratadine 10 MG Tablet PO (09:01)
[2018-05-29] MEDS: Pantoprazole Sodium 40 MG Tablet PO (09:01)
--- NOTE | 2018-05-29 10:11 | PCM.PROGNOTE ---
Patient Problems: Active and Suspected Problems Systolic and diastolic CHF, acute on chronic (Acute) Subjective: Patient did well overnight. Patient reports subjective improvement following thoracentesis yesterday. No chest pain is been reported. Patient did go down for an ultrasound today, but there was no reported left-sided pleural effusion for tapping. Patient has significantly improved a 2-1/2 L nasal cannula. Patient denies any nausea or vomiting. - Physical Exam General: Alert, Oriented x3, Cooperative, No apparent distress HEENT: Atraumatic, PERRLA, EOMI, Normocephalic, - - No scleral icterus or injection noted. Oral: Moist Mucosa, No Gingival or Mucosal Lesions/ Ulcerations Neck: Supple, No JVD, No Nodes, Trachea Midline Lungs: No rhonchi, No wheeze, No rales, Diminished - Left base, - - Symmetric expansion. No dullness to percussion. Cardiovascular: Regular rate, Regular Rhythm, Normal S1, Normal S2, Murmur - Grade 2 out of 6 systolic ejection murmur at the right sternal border, No rub noted, No Gallop Abdomen: Bowel Sounds Present, Soft, Non Tender, Non-Distended Extremities: No clubbing, No cyanosis, No edema, Capillary Refill Less than 3 Seconds Skin: No rashes, No breakdown Musculoskeletal: No Tenderness to Palpation of Joints or Extremities Lymphatic: No Cervical, Supraclavicular, or Inguinal Adenopathy Neurological: Cranial nerves II-XII grossly intact, Neuro grossly intact, Motor Exam 5/5 strength throughout Psych/Mental Status: Alert and oriented to time, place, person, mood and affect Vital Signs Temp Pulse Resp BP Pulse Ox 36.7 C 73 20 H 154/62 H 92 05/29/18 08:57 05/29/18 08:57 05/29/18 08:57 05/29/18 08:57 05/29/18 08:57 Oxygen Flow Rate (L/min) 2.5 Oxygen Delivery Method Nasal Cannula Weight: 106 kg Body Mass Index (BMI) 33.2 Intake and Output for Last 24 Hours 05/27/18 05/28/18 05/29/18 23:59 23:59 23:59 Intake Total 520 / 520 965 / 965 240 / 240 Output Total 500 / 500 2840 / 2840 Balance -1875 / -1875 240 / 240 Laboratory Tests Past 24 Hrs 05/28/18 05/28/18 05/28/18 10:10 10:20 10:20 WBC RBC Hgb Hct MCV MCH MCHC RDW RDW Differential Plt Count MPV Sodium Potassium Chloride Carbon Dioxide Anion Gap BUN Creatinine Estim Creat Clear Calc Est GFR (MDRD) Af Amer Est GFR (MDRD) Non-Af BUN/Creatinine Ratio Glucose Calcium Fluid Source THORACENTESIS Fluid Color RED Fluid Appearance SL CLDY Fluid WBC 0.903 Fluid RBC 0.20950 Fluid Tot Cell Count 0.922 Fld Polynuclear WBCs # 0.041 Fld Polynuclear WBCs % 4.5 Fluid Mononuclear WBCs 0.862 Fld Mononuclear WBCs % 95.5 Fluid Neutrophils 5 Fluid Lymphocytes 78 Fluid Monocytes 4 Fluid Macrophages 10 Fld Mesothelial Cells 3 Fl Pathologist Comment May follow Fluid Glucose 133 H Fluid Total Protein 2.0 Fluid LDH 67 Fluid Comment 2 SEE COMMENT Miscellaneous Cytology Pending 05/29/18 05/29/18 05:36 05:36 WBC 5.8 RBC 2.60 L Hgb 7.9 L Hct 26.4 L MCV 101.5 H MCH 30.4 MCHC 29.9 L RDW 15.2 H RDW Differential 55.0 H Plt Count 139 L MPV 11.5 Sodium 141 Potassium 4.7 Chloride 109 H Carbon Dioxide 27.0 Anion Gap 5 BUN 44 H Creatinine 1.95 H Estim Creat Clear Calc 41.45 Est GFR (MDRD) Af Amer 45 L Est GFR (MDRD) Non-Af 37 L BUN/Creatinine Ratio 22.6 H Glucose 155 H Calcium 8.3 L Fluid Source Fluid Color Fluid Appearance Fluid WBC Fluid RBC Fluid Tot Cell Count Fld Polynuclear WBCs # Fld Polynuclear WBCs % Fluid Mononuclear WBCs Fld Mononuclear WBCs % Fluid Neutrophils Fluid Lymphocytes Fluid Monocytes Fluid Macrophages Fld Mesothelial Cells Fl Pathologist Comment Fluid Glucose Fluid Total Protein Fluid LDH Fluid Comment 2 Miscellaneous Cytology POC Glucose 05/29/18 05/28/18 05/28/18 05:54 22:52 17:05 POC Glucose 165 H 147 H 205 H 05/28/18 11:07 POC Glucose 134 H Clinical Impression(s) from Imaging Studies Thoracentesis Ultrasound 05/28/18 09:30 IMPRESSION: Ultrasound-guided right thoracentesis. Electronically Signed: Chilo Ulrich MD at 11:08 EDT Tel [phone], Service support , Chest X-Ray 05/28/18 10:05 IMPRESSION: 1. Right pleural effusion nearly fully evacuated post thoracentesis. Residual thickening or fluid remains along the diaphragm and lateral right base. Right chest tube again noted. No pneumothorax. 2. Ill-defined right perihilar density may be improving partial collapse, but infection or localized pulmonary edema not excluded. 3. Combined airspace disease and pleural effusion in the left perihilar region and the left base are unchanged. 4. Stable mild cardiac enlargement. Electronically Signed: Jim Boland MD at 12:16 EDT , Service support , Chest Ultrasound 05/29/18 00:05 IMPRESSION: No significant pleural effusion is seen. Electronically Signed: Chilo Ulrich MD at 9:00 EDT Tel [phone], Service support , Medical Necessity - Tobacco Use Smoking Status: Former smoker Assessment/Plan All Active Problems Acute respiratory failure (Acute) Shortness of breath (Acute) HCAP (healthcare-associated pneumonia) (Ruled-out) Systolic and diastolic CHF, acute on chronic (Acute) RECOMMENDATIONS: 1. Okay to discharge patient from my perspective 2. Patient should follow-up with [facility] physicians for plan on Pleurx catheter 3. Walking oximetry prior to discharge 4. Likely will require supplemental oxygen on discharge IMPRESSIONS: 1. Acute hypoxic respiratory failure secondary to acute on chronic combined CHF Total effusion is consistent with a transudative process such as congestive heart failure. Patient is responded well. Continue to wean oxygen as tolerated. Ultrasound of the left side did not show any significant fluid accumulation. Likely okay to discharge with supplemental oxygen from my perspective. Patient will need to follow-up with [facility] physicians for plan on Pleurx catheter. This does appear to be in an area of loculation and will not drain consistently. Unclear if they would proceed with TPA administration versus removal of the Pleurx catheter versus pleurodesis. 2. 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 Patient has been given Lasix therapy, so we will need to watch closely. Blood sugars can be followed. Patient currently n.p.o. Sliding scale insulin would be appropriate. Would avoid metformin therapy for reported diabetes mellitus secondary to renal function and age. 3. Obesity/hypertension/hypertriglyceridemia/recurrent admissions/BPH/reported COPD Complicates care, management, recovery and prognosis. Okay to continue with baseline medications. Encourage weight loss. No PFTs are available for confirmation of COPD. Patient can remain on bronchodilators as needed. Patient does not appear to be in acute exacerbation of COPD at this time. Code Visit Inpatient E&M: 40770 Subs Hosp L2
--- NOTE | 2018-05-29 10:15 | PN_ITS ---
Patient Problems: Active and Suspected Problems Systolic and diastolic CHF, acute on chronic (Acute) Subjective: Patient did well overnight. Patient reports subjective improvement following thoracentesis yesterday. No chest pain is been reported. Patient did go down for an ultrasound today, but there was no reported left-sided pleural effusion for tapping. Patient has significantly improved a 2-1/2 L nasal cannula. Patient denies any nausea or vomiting. - Physical Exam General: Alert, Oriented x3, Cooperative, No apparent distress HEENT: Atraumatic, PERRLA, EOMI, Normocephalic, - - No scleral icterus or injection noted. Oral: Moist Mucosa, No Gingival or Mucosal Lesions/ Ulcerations Neck: Supple, No JVD, No Nodes, Trachea Midline Lungs: No rhonchi, No wheeze, No rales, Diminished - Left base, - - Symmetric expansion. No dullness to percussion. Cardiovascular: Regular rate, Regular Rhythm, Normal S1, Normal S2, Murmur - Grade 2 out of 6 systolic ejection murmur at the right sternal border, No rub noted, No Gallop Abdomen: Bowel Sounds Present, Soft, Non Tender, Non-Distended Extremities: No clubbing, No cyanosis, No edema, Capillary Refill Less than 3 Seconds Skin: No rashes, No breakdown Musculoskeletal: No Tenderness to Palpation of Joints or Extremities Lymphatic: No Cervical, Supraclavicular, or Inguinal Adenopathy Neurological: Cranial nerves II-XII grossly intact, Neuro grossly intact, Motor Exam 5/5 strength throughout Psych/Mental Status: Alert and oriented to time, place, person, mood and affect Vital Signs Temp Pulse Resp BP Pulse Ox 36.7 C 73 20 H 154/62 H 92 05/29/18 08:57 05/29/18 08:57 05/29/18 08:57 05/29/18 08:57 05/29/18 08:57 Oxygen Flow Rate (L/min) 2.5 Oxygen Delivery Method Nasal Cannula Weight: 106 kg Body Mass Index (BMI) 33.2 Intake and Output for Last 24 Hours 05/27/18 05/28/18 05/29/18 23:59 23:59 23:59 Intake Total 520 / 520 965 / 965 240 / 240 Output Total 500 / 500 2840 / 2840 Balance -1875 / -1875 240 / 240 Laboratory Tests Past 24 Hrs 05/28/18 05/28/18 05/28/18 10:10 10:20 10:20 WBC RBC Hgb Hct MCV MCH MCHC RDW RDW Differential Plt Count MPV Sodium Potassium Chloride Carbon Dioxide Anion Gap BUN Creatinine Estim Creat Clear Calc Est GFR (MDRD) Af Amer Est GFR (MDRD) Non-Af BUN/Creatinine Ratio Glucose Calcium Fluid Source THORACENTESIS Fluid Color RED Fluid Appearance SL CLDY Fluid WBC 0.903 Fluid RBC 0.10935 Fluid Tot Cell Count 0.922 Fld Polynuclear WBCs # 0.041 Fld Polynuclear WBCs % 4.5 Fluid Mononuclear WBCs 0.862 Fld Mononuclear WBCs % 95.5 Fluid Neutrophils 5 Fluid Lymphocytes 78 Fluid Monocytes 4 Fluid Macrophages 10 Fld Mesothelial Cells 3 Fl Pathologist Comment May follow Fluid Glucose 133 H Fluid Total Protein 2.0 Fluid LDH 67 Fluid Comment 2 SEE COMMENT Miscellaneous Cytology Pending 05/29/18 05/29/18 05:36 05:36 WBC 5.8 RBC 2.60 L Hgb 7.9 L Hct 26.4 L MCV 101.5 H MCH 30.4 MCHC 29.9 L RDW 15.2 H RDW Differential 55.0 H Plt Count 139 L MPV 11.5 Sodium 141 Potassium 4.7 Chloride 109 H Carbon Dioxide 27.0 Anion Gap 5 BUN 44 H Creatinine 1.95 H Estim Creat Clear Calc 41.45 Est GFR (MDRD) Af Amer 45 L Est GFR (MDRD) Non-Af 37 L BUN/Creatinine Ratio 22.6 H Glucose 155 H Calcium 8.3 L Fluid Source Fluid Color Fluid Appearance Fluid WBC Fluid RBC Fluid Tot Cell Count Fld Polynuclear WBCs # Fld Polynuclear WBCs % Fluid Mononuclear WBCs Fld Mononuclear WBCs % Fluid Neutrophils Fluid Lymphocytes Fluid Monocytes Fluid Macrophages Fld Mesothelial Cells Fl Pathologist Comment Fluid Glucose Fluid Total Protein Fluid LDH Fluid Comment 2 Miscellaneous Cytology POC Glucose 05/29/18 05/28/18 05/28/18 05:54 22:52 17:05 POC Glucose 165 H 147 H 205 H 05/28/18 11:07 POC Glucose 134 H Clinical Impression(s) from Imaging Studies Thoracentesis Ultrasound 05/28/18 09:30 IMPRESSION: Ultrasound-guided right thoracentesis. Electronically Signed: Chilo Ulrich MD at 11:08 EDT Tel [phone], Service support , Chest X-Ray 05/28/18 10:05 IMPRESSION: 1. Right pleural effusion nearly fully evacuated post thoracentesis. Residual thickening or fluid remains along the diaphragm and lateral right base. Right chest tube again noted. No pneumothorax. 2. Ill-defined right perihilar density may be improving partial collapse, but infection or localized pulmonary edema not excluded. 3. Combined airspace disease and pleural effusion in the left perihilar region and the left base are unchanged. 4. Stable mild cardiac enlargement. Electronically Signed: Jim Boland MD at 12:16 EDT , Service support , Chest Ultrasound 05/29/18 00:05 IMPRESSION: No significant pleural effusion is seen. Electronically Signed: Chilo Ulrich MD at 9:00 EDT Tel [phone], Service support , Medical Necessity - Tobacco Use Smoking Status: Former smoker Assessment/Plan All Active Problems Acute respiratory failure (Acute) Shortness of breath (Acute) HCAP (healthcare-associated pneumonia) (Ruled-out) Systolic and diastolic CHF, acute on chronic (Acute) RECOMMENDATIONS: 1. Okay to discharge patient from my perspective 2. Patient should follow-up with [facility] physicians for plan on Pleurx catheter 3. Walking oximetry prior to discharge 4. Likely will require supplemental oxygen on discharge IMPRESSIONS: 1. Acute hypoxic respiratory failure secondary to acute on chronic combined CHF Total effusion is consistent with a transudative process such as congestive heart failure. Patient is responded well. Continue to wean oxygen as tolerated. Ultrasound of the left side did not show any significant fluid accumulation. Likely okay to discharge with supplemental oxygen from my perspective. Patient will need to follow-up with [facility] physicians for plan on Pleurx catheter. This does appear to be in an area of loculation a nd will not drain consistently. Unclear if they would proceed with TPA administration versus removal of the Pleurx catheter versus pleurodesis. 2. 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 Patient has been given Lasix therapy, so we will need to watch closely. Blood sugars can be followed. Patient currently n.p.o. Sliding scale insulin would be appropriate. Would avoid metformin therapy for reported diabetes mellitus secondary to renal function and age. 3. Obesity/hypertension/hypertriglyceridemia/recurrent admissions/BPH/reported COPD Complicates care, management, recovery and prognosis. Okay to continue with baseline medications. Encourage weight loss. No PFTs are available for confirmation of COPD. Patient can remain on bronchodilators as needed. Patient does not appear to be in acute exacerbation of COPD at this time. Code Visit Inpatient E&M: 35110 Subs Hosp L2
--- NOTE | 2018-05-29 11:26 | CASEMGMT ---
Therapy notes states pt does not need any further therapy at this time. Call to [facility] and per Obed, pt does have a current order at this time. Long FRIAS is still planning on seeing pt when his is here in regards to palliative care, PCP list, and lack of Rx insurance. Kristen YOON CM
[2018-05-29 11:35] LABS: Bedside Glucose 160 mg/dL (70-110)
--- NOTE | 2018-05-29 11:38 | PCM.DC ---
- Discharge Diagnoses Current Active Problems: Current Active and Chronic Problems Systolic and diastolic CHF, acute on chronic (Acute) You will use the following diet at home:: Calorie/Carbohydrate Controlled (specify 1200, 1400, etc) - 1800 ajith / day, Cardiac - <2 g sodium daily Your food should be the consistency of: Regular Your liquids should be the consistency of: Regular/Thin Discharge Activity: Return to Normal Activity Allergies/Adverse Reactions: Allergies bacitracin Allergy (Verified 05/16/18 17:25) Rash rosuvastatin [From Crestor] Adverse Reaction (Verified 05/16/18 17:25) Upset Stomach Medications to take at Discharge Amlodipine [Norvasc] 5 mg PO DAILY 05/16/18 Aspirin E.C. [Ecotrin] 81 mg PO DAILY@0800 05/16/18 Atorvastatin Calcium [Lipitor] 40 mg PO QHS 05/16/18 Carvedilol [Coreg (Beta Shayan)] 6.25 mg PO BID 05/16/18 Doxazosin Mesylate [Cardura] 4 mg PO QHS 05/16/18 Hydralazine HCl 75 mg PO TID 05/16/18 Multivitamin [Daily Multiple Vitamin] 1 each PO DAILY 05/16/18 Pantoprazole Sodium 40 mg PO DAILY 05/16/18 Acetaminophen [Tylenol] 1,000 mg PO Q8H PRN PRN tablet 05/23/18 Iron Polysaccharide Complex [Ferrex 150] 150 mg PO BIDCM #30 cap 05/23/18 Loratadine [Claritin] 10 mg PO DAILY tablet 05/23/18 Furosemide 40 mg PO BID #60 tablet 05/29/18 The following prescriptions were given: Furosemide 40 mg PO BID #60 tablet Orders to be completed after discharge: Basic Metabolic Profile (BMP) Time Frame: 5 Days, Location: Laboratory Primary Care Physician: Primo Barroso MD [Primary Care Provider] - Please follow up with your Primary Care Physician in: 1 week Test Results: Test results from this visit will be discussed in further detail at your follow-up appointment, if applicable. [facility] Please Follow Up With: Dipesh Gr MD When: 1-2 weeks Proposed Discharge Date: 05/29/18
--- NOTE | 2018-05-29 11:41 | DCINST_ITS ---
- Discharge Diagnoses Current Active Problems: Current Active and Chronic Problems Systolic and diastolic CHF, acute on chronic (Acute) You will use the following diet at home:: Calorie/Carbohydrate Controlled (specify 1200, 1400, etc) - 1800 ajith / day, Cardiac - <2 g sodium daily Your food should be the consistency of: Regular Your liquids should be the consistency of: Regular/Thin Discharge Activity: Return to Normal Activity Allergies/Adverse Reactions: Allergies bacitracin Allergy (Verified 05/16/18 17:25) Rash rosuvastatin [From Crestor] Adverse Reaction (Verified 05/16/18 17:25) Upset Stomach Medications to take at Discharge Amlodipine [Norvasc] 5 mg PO DAILY 05/16/18 Aspirin E.C. [Ecotrin] 81 mg PO DAILY@0800 05/16/18 Atorvastatin Calcium [Lipitor] 40 mg PO QHS 05/16/18 Carvedilol [Coreg (Beta Shayna)] 6.25 mg PO BID 05/16/18 Doxazosin Mesylate [Cardura] 4 mg PO QHS 05/16/18 Hydralazine HCl 75 mg PO TID 05/16/18 Multivitamin [Daily Multiple Vitamin] 1 each PO DAILY 05/16/18 Pantoprazole Sodium 40 mg PO DAILY 05/16/18 Acetaminophen [Tylenol] 1,000 mg PO Q8H PRN PRN tablet 05/23/18 Iron Polysaccharide Complex [Ferrex 150] 150 mg PO BIDCM #30 cap 05/23/18 Loratadine [Claritin] 10 mg PO DAILY tablet 05/23/18 Furosemide 40 mg PO BID #60 tablet 05/29/18 The following prescriptions were given: Furosemide 40 mg PO BID #60 tablet Orders to be completed after discharge: Basic Metabolic Profile (BMP) Time Frame: 5 Days, Location: Laboratory Primary Care Physician: Primo Barroso MD [Primary Care Provider] - Please follow up with your Primary Care Physician in: 1 week Test Results: Test results from this visit will be discussed in further detail at your follow- up appointment, if applicable. [facility] Please Follow Up With: Dipesh Gr MD When: 1-2 weeks Proposed Discharge Date: 05/29/18
--- NOTE | 2018-05-29 12:04 | PCM.DC.SUM ---
Discharge Date and Diagnosis - Problem List Patient Problems: Active and Suspected Problems Systolic and diastolic CHF, acute on chronic (Acute) Date of Admission: 05/26/18 Date of Discharge: 05/29/18 - Primary Discharge Diagnosis Active and Suspected Problems diastolic CHF, acute on chronic (Acute) Recurrent pleural effusions, s/p pleuryx cath Indeterminate troponin CKDIII DMt2 Chronic macrocytic anemia HTN HLD COPD not acutely exacerbated BPH - Secondary Discharge Diagnosis Chronic Problems Recurrent pleural effusion on right (Chronic) Hypertriglyceridemia (Chronic) Chronic kidney disease (Chronic) Diabetes mellitus (Chronic) Type 2 diabetes mellitus (Chronic) Obesity (Chronic) Hypertension (Chronic) History of tobacco use (Chronic) Hospital Course and Treatment Imaging Results: RAD/Chest 1 View (Portable) IMPRESSION: Worsening bilateral lower lobe opacity. Findings suspicious for worsening large bilateral effusions and/or consolidation. Echo: Mildly dilated left ventricle. Left ventricular systolic function is normal. The estimated ejection fraction is 60 %. Moderate concentric left ventricular hypertrophy. The left atrium is mildly enlarged. Mild diffuse mitral valve thickening. Trivial mitral valve insufficiency. Trivial tricuspid valve insufficiency. Borderline enlarged aortic root. Echolucency c/w a pleural effusion. Unable to estimate RV systolic pressure/pulmonary artery pressure due to technically difficult study. Transmitral diastolic flow velocities suggest diastolic dysfunction (pseudonormal pattern). CT/Chest without Contrast IMPRESSION: 1. Moderate size, probably loculated right pleural effusion present, predominantly inferior to right basilar airspace disease with probable atelectasis. Active infection not excluded. A right chest tube is present, positioned between the basilar airspace disease and the pleural effusion. This tube may need repositioning or replacement to most effectively evacuated the pleural effusion. 2. Dependent small to moderate left pleural effusion also present. Airspace disease in the adjacent left lower lobe and lingula of left upper lobe is likely atelectasis, but again, infection is not excluded. 3. There is mediastinal adenopathy, likely reactive. 4. There are findings of old right calcified granulomatous disease. 5. Borderline to mild cardiac enlargement mild atherosclerotic calcifications of the coronary arteries and thoracic aorta. 6. 2.4 cm structure of indeterminate etiology at the lateral margin of the upper to midpole of the right kidney. This might be further characterized with US/Thoracentesis W US IMPRESSION: Ultrasound-guided right thoracentesis. 1420 mL removed RAD/Chest Insp/Exp 2 View IMPRESSION: 1. Right pleural effusion nearly fully evacuated post thoracentesis. Residual thickening or fluid remains along the diaphragm and lateral right base. Right chest tube again noted. No pneumothorax. 2. Ill-defined right perihilar density may be improving partial collapse, but infection or localized pulmonary edema not excluded. 3. Combined airspace disease and pleural effusion in the left perihilar region and the left base are unchanged. 4. Stable mild cardiac enlargement. US/Chest IMPRESSION: No significant pleural effusion is seen. Consults: Ernesto - pulmonology Operations: None Procedures: 2-D Echocardiogram, Thoracentesis Summary of Care Provided: Physical exam on day of discharge: General: Resting comfortably NAD Psych: A/Ox3 normal affect HEENT: PEARRLA AT NC Neck: Supple NT CV: RRR no m/t/r/g/h Resp: RLL rales. Abd: [id number] Soft NT no guarding or rigidity Ext: DP2+= no edema Skin: W/D normal turgor Lymph/Heme: No active bleeding or adenopathy Neuro: CN2-12 intact Hospital Course: The patient is a 67 year old M with a hx of recurrent CHF with recurrent pleural effusions who has a Pleurx catheter in place on the right. The catheter was not draining appropriately and he presented to the ER with increased SOB. He required increased oxygenation up to 6lpm via NC to maintain good sats. He chronically uses 2-3 at home. He was admitted to the ICU with pulmonary on consult. He was given IV lasix 40 BID. He had significant pleural effusions and a thoracentesis was performed. 1420 mL of pleural fluid was removed. The following day no significant pleural effusion was demonstrated on US. Echo showed EF 60%. He was weaned to his baseline O2 with no further symptoms. He was started on a higher dose of home Lasix. He was discharged home in stable condition and will need to follow up with the [facility] given his Pleurx catheter issues. He will need to see his PCP 1-2 weeks, buckle strap drum operator Dr. May tomorrow if possible, and his whistle punk Dr. Baker in 1-2 weeks. This patient was seen by Chuck Morales PA-C under the supervision of Doctor Dorian. [] Patient Problems: Active and Suspected Problems Systolic and diastolic CHF, acute on chronic (Acute) - Physical Exam General: Alert, Oriented x3, Cooperative HEENT: Atraumatic, PERRLA, EOMI, Normocephalic Neck: Supple, No JVD, Negative Carotid Bruits Lungs: Rales - RLL Cardiovascular: Regular rate, No murmurs Abdomen: Bowel Sounds Present, Soft, Non Tender Extremities: No edema, Capillary Refill Less than 3 Seconds, Edema - 2+ pitting edema BLE Skin: No rashes, No breakdown Musculoskeletal: No Tenderness to Palpation of Joints or Extremities Neurological: Cranial nerves II-XII grossly intact Psych/Mental Status: Normal Affect, Appropriate, Alert and oriented to time, place, person, mood and affect Vital Signs Temp Pulse Resp BP Pulse Ox 98.0 F 69 20 H 154/62 H 92 05/29/18 08:57 05/29/18 11:10 05/29/18 08:57 05/29/18 08:57 05/29/18 08:57 Oxygen Flow Rate (L/min) 2.5 Oxygen Delivery Method Nasal Cannula Weight: 233 lb 11.04 oz Body Mass Index (BMI) 33.2 Intake and Output for Last 24 Hours 05/27/18 05/28/18 05/29/18 23:59 23:59 23:59 Intake Total 520 / 520 965 / 965 240 / 240 Output Total 500 / 500 2840 / 2840 Balance 20 / 20 -1875 / -1875 240 / 240 Microbiology Past 72 Hours 05/28/18 10:20 Body Fluid Culture - Preliminary Fluid - Thoracentesis Fluid No growth-Final to follow Laboratory Tests Past 24 Hrs 05/29/18 05/29/18 05:36 05:36 WBC 5.8 RBC 2.60 L Hgb 7.9 L Hct 26.4 L MCV 101.5 H MCH 30.4 MCHC 29.9 L RDW 15.2 H RDW Differential 55.0 H Plt Count 139 L MPV 11.5 Sodium 141 Potassium 4.7 Chloride 109 H Carbon Dioxide 27.0 Anion Gap 5 BUN 44 H Creatinine 1.95 H Estim Creat Clear Calc 41.45 Est GFR (MDRD) Af Amer 45 L Est GFR (MDRD) Non-Af 37 L BUN/Creatinine Ratio 22.6 H Glucose 155 H Calcium 8.3 L POC Glucose 05/29/18 05/29/18 05/28/18 11:33 05:54 22:52 POC Glucose 160 H 165 H 147 H 05/28/18 17:05 POC Glucose 205 H Discharge Diet: Low fat/ Low Cholesterol, 1800 Calorie Control Diet, 2000 mg Sodium Diet Discharge Activity: Return to Normal Activity Home Medications: Medications to take at Discharge Amlodipine [Norvasc] 5 mg PO DAILY 05/16/18 Aspirin E.C. [Ecotrin] 81 mg PO DAILY@0800 05/16/18 Atorvastatin Calcium [Lipitor] 40 mg PO QHS 05/16/18 Carvedilol [Coreg (Beta Shayna)] 6.25 mg PO BID 05/16/18 Doxazosin Mesylate [Cardura] 4 mg PO QHS 05/16/18 Hydralazine HCl 75 mg PO TID 05/16/18 Multivitamin [Daily Multiple Vitamin] 1 each PO DAILY 05/16/18 Pantoprazole Sodium 40 mg PO DAILY 05/16/18 Acetaminophen [Tylenol] 1,000 mg PO Q8H PRN PRN tablet 05/23/18 Iron Polysaccharide Complex [Ferrex 150] 150 mg PO BIDCM #30 cap 05/23/18 Loratadine [Claritin] 10 mg PO DAILY tablet 05/23/18 Furosemide 40 mg PO BID #60 tablet 05/29/18 Following Prescrptions Were Given to Patient: Furosemide 40 mg PO BID #60 tablet Other Amb Orders: Basic Metabolic Profile (BMP) Time Frame: 5 Days, Location: Laboratory Primary Care Physician: Primo Barroso MD [Primary Care Provider] - Please follow up with your Primary Care Physician in: 1 week [facility] Follow Up With: Dipesh Gr MD When: 1-2 weeks Disposition: Home Minutes spent on discharge:: 35 Patient Condition:: Stable Medical Necessity - Tobacco Use Smoking Status: Former smoker Meaningful Use Info Meaningful Use Diagnoses (Choose all that apply): CHF - CHF CHU/ARB ordered at discharge?: No Reason CHU/ARB not ordered?: Worsening renal disease Documented LVEF (%): 60
--- NOTE | 2018-05-29 12:09 | DS.PCM_ITS ---
Discharge Date and Diagnosis - Problem List Patient Problems: Active and Suspected Problems Systolic and diastolic CHF, acute on chronic (Acute) Date of Admission: 05/26/18 Date of Discharge: 05/29/18 - Primary Discharge Diagnosis Active and Suspected Problems diastolic CHF, acute on chronic (Acute) Recurrent pleural effusions, s/p pleuryx cath Indeterminate troponin CKDIII DMt2 Chronic macrocytic anemia HTN HLD COPD not acutely exacerbated BPH - Secondary Discharge Diagnosis Chronic Problems Recurrent pleural effusion on right (Chronic) Hypertriglyceridemia (Chronic) Chronic kidney disease (Chronic) Diabetes mellitus (Chronic) Type 2 diabetes mellitus (Chronic) Obesity (Chronic) Hypertension (Chronic) History of tobacco use (Chronic) Hospital Course and Treatment Imaging Results: RAD/Chest 1 View (Portable) IMPRESSION: Worsening bilateral lower lobe opacity. Findings suspicious for worsening large bilateral effusions and/or consolidation. Echo: Mildly dilated left ventricle. Left ventricular systolic function is normal. The estimated ejection fraction is 60 %. Moderate concentric left ventricular hypertrophy. The left atrium is mildly enlarged. Mild diffuse mitral valve thickening. Trivial mitral valve insufficiency. Trivial tricuspid valve insufficiency. Borderline enlarged aortic root. Echolucency c/w a pleural effusion. Unable to estimate RV systolic pressure/pulmonary artery pressure due to technically difficult study. Transmitral diastolic flow velocities suggest diastolic dysfunction (pseudonormal pattern). CT/Chest without Contrast IMPRESSION: 1. Moderate size, probably loculated right pleural effusion present, predominantly inferior to right basilar airspace disease with probable atelectasis. Active infection not excluded. A right chest tube is present, positioned between the basilar airspace disease and the pleural effusion. This tube may need repositioning or replacement to most effectively evacuated the pleural effusion. 2. Dependent small to moderate left pleural effusion also present. Airspace disease in the adjacent left lower lobe and lingula of left upper lobe is likely atelectasis, but again, infection is not excluded. 3. There is mediastinal adenopathy, likely reactive. 4. There are findings of old right calcified granulomatous disease. 5. Borderline to mild cardiac enlargement mild atherosclerotic calcifications of the coronary arteries and thoracic aorta. 6. 2.4 cm structure of indeterminate etiology at the lateral margin of the upper to midpole of the right kidney. This might be further characterized with US/Thoracentesis W US IMPRESSION: Ultrasound-guided right thoracentesis. 1420 mL removed RAD/Chest Insp/Exp 2 View IMPRESSION: 1. Right pleural effusion nearly fully evacuated post thoracentesis. Residual thickening or fluid remains along the diaphragm and lateral right base. Right chest tube again noted. No pneumothorax. 2. Ill-defined right perihilar density may be improving partial collapse, but infection or localized pulmonary edema not excluded. 3. Combined airspace disease and pleural effusion in the left perihilar region and the left base are unchanged. 4. Stable mild cardiac enlargement. US/Chest IMPRESSION: No significant pleural effusion is seen. Consults: Ernesto - pulmonology Operations: None Procedures: 2-D Echocardiogram, Thoracentesis Summary of Care Provided: Physical exam on day of discharge: General: Resting comfortably NAD Psych: A/Ox3 normal affect HEENT: PEARRLA AT NC Neck: Supple NT CV: RRR no m/t/r/g/h Resp: RLL rales. Abd: [id number] Soft NT no guarding or rigidity Ext: DP2+= no edema Skin: W/D normal turgor Lymph/Heme: No active bleeding or adenopathy Neuro: CN2-12 intact Hospital Course: The patient is a 67 year old M with a hx of recurrent CHF with recurrent pleural effusions who has a Pleurx catheter in place on the right. The catheter was not draining appropriately and he presented to the ER with increased SOB. He required increased oxygenation up to 6lpm via NC to maintain good sats. He chronically uses 2-3 at home. He was admitted to the ICU with pulmonary on consult. He was given IV lasix 40 BID. He had significant pleural effusions and a thoracentesis was performed. 1420 mL of pleural fluid was removed. The following day no significant pleural effusion was demonstrated on US. Echo showed EF 60%. He was weaned to his baseline O2 with no further symptoms. He was started on a higher dose of home Lasix. He was discharged home in stable condition and will need to follow up with the [facility] given his Pleurx catheter issues. He will need to see his PCP 1-2 weeks, hand bobbin cleaner Dr. May tomorrow if possible, and his midwife practitioner Dr. Baker in 1-2 weeks. This patient was seen by Chuck Morales PA-C under the supervision of Doctor Dorian. [] Patient Problems: Active and Suspected Problems Systolic and diastolic CHF, acute on chronic (Acute) - Physical Exam General: Alert, Oriented x3, Cooperative HEENT: Atraumatic, PERRLA, EOMI, Normocephalic Neck: Supple, No JVD, Negative Carotid Bruits Lungs: Rales - RLL Cardiovascular: Regular rate, No murmurs Abdomen: Bowel Sounds Present, Soft, Non Tender Extremities: No edema, Capillary Refill Less than 3 Seconds, Edema - 2+ pitting edema BLE Skin: No rashes, No breakdown Musculoskeletal: No Tenderness to Palpation of Joints or Extremities Neurological: Cranial nerves II-XII grossly intact Psych/Mental Status: Normal Affect, Appropriate, Alert and oriented to time, place, person, mood and affect Vital Signs Temp Pulse Resp BP Pulse Ox 98.0 F 69 20 H 154/62 H 92 05/29/18 08:57 05/29/18 11:10 05/29/18 08:57 05/29/18 08:57 05/29/18 08:57 Oxygen Flow Rate (L/min) 2.5 Oxygen Delivery Method Nasal Cannula Weight: 233 lb 11.04 oz Body Mass Index (BMI) 33.2 Intake and Output for Last 24 Hours 05/27/18 05/28/18 05/29/18 23:59 23:59 23:59 Intake Total 520 / 520 965 / 965 240 / 240 Output Total 500 / 500 2840 / 2840 Balance 20 / 20 -1875 / -1875 240 / 240 Microbiology Past 72 Hours 05/28/18 10:20 Body Fluid Culture - Preliminary Fluid - Thoracentesis Fluid No growth-Final to follow Laboratory Tests Past 24 Hrs 05/29/18 05/29/18 05:36 05:36 WBC 5.8 RBC 2.60 L Hgb 7.9 L Hct 26.4 L MCV 101.5 H MCH 30.4 MCHC 29.9 L RDW 15.2 H RDW Differential 55.0 H Plt Count 139 L MPV 11.5 Sodium 141 Potassium 4.7 Chloride 109 H Carbon Dioxide 27.0 Anion Gap 5 BUN 44 H Creatinine 1.95 H Estim Creat Clear Calc 41.45 Est GFR (MDRD) Af Amer 45 L Est GFR (MDRD) Non-Af 37 L BUN/Creatinine Ratio 22.6 H Glucose 155 H Calcium 8.3 L POC Glucose 05/29/18 05/29/18 05/28/18 11:33 05:54 22:52 POC Glucose 160 H 165 H 147 H 05/28/18 17:05 POC Glucose 205 H Discharge Diet: Low fat/ Low Cholesterol, 1800 Calorie Control Diet, 2000 mg Sodium Diet Discharge Activity: Return to Normal Activity Home Medications: Medications to take at Discharge Amlodipine [Norvasc] 5 mg PO DAILY 05/16/18 Aspirin E.C. [Ecotrin] 81 mg PO DAILY@0800 05/16/18 Atorvastatin Calcium [Lipitor] 40 mg PO QHS 05/16/18 Carvedilol [Coreg (Beta Shayna)] 6.25 mg PO BID 05/16/18 Doxazosin Mesylate [Cardura] 4 mg PO QHS 05/16/18 Hydralazine HCl 75 mg PO TID 05/16/18 Multivitamin [Daily Multiple Vitamin] 1 each PO DAILY 05/16/18 Pantoprazole Sodium 40 mg PO DAILY 05/16/18 Acetaminophen [Tylenol] 1,000 mg PO Q8H PRN PRN tablet 05/23/18 Iron Polysaccharide Complex [Ferrex 150] 150 mg PO BIDCM #30 cap 05/23/18 Loratadine [Claritin] 10 mg PO DAILY tablet 05/23/18 Furosemide 40 mg PO BID #60 tablet 05/29/18 Following Prescrptions Were Given to Patient: Furosemide 40 mg PO BID #60 tablet Other Amb Orders: Basic Metabolic Profile (BMP) Time Frame: 5 Days, Location: Laboratory Primary Care Physician: Primo Barroso MD [Primary Care Provider] - Please follow up with your Primary Care Physician in: 1 week [facility] Follow Up With: Dipesh Gr MD When: 1-2 weeks Disposition: Home Minutes spent on discharge:: 35 Patient Condition:: Stable Medical Necessity - Tobacco Use Smoking Status: Former smoker Meaningful Use Info Meaningful Use Diagnoses (Choose all that apply): CHF - CHF CHU/ARB ordered at discharge?: No Reason CHU/ARB not ordered?: Worsening renal disease Documented LVEF (%): 60
--- NOTE | 2018-05-29 13:31 | PCM.PROGNOTE ---
Patient Problems: Active and Suspected Problems Systolic and diastolic CHF, acute on chronic (Acute) Subjective: No complaints. No cough, SOB, CP. - Physical Exam General: Alert, Oriented x3, Cooperative HEENT: Atraumatic, PERRLA, EOMI, Normocephalic Neck: Supple, No JVD, Negative Carotid Bruits Lungs: Rales - RLL Cardiovascular: Regular rate, No murmurs Abdomen: Bowel Sounds Present, Soft, Non Tender Extremities: No edema, Capillary Refill Less than 3 Seconds Skin: No rashes, No breakdown Musculoskeletal: No Tenderness to Palpation of Joints or Extremities Neurological: Cranial nerves II-XII grossly intact Psych/Mental Status: Normal Affect, Appropriate, Alert and oriented to time, place, person, mood and affect Vital Signs Temp Pulse Resp BP Pulse Ox 98.0 F 70 16 154/62 H 92 05/29/18 08:57 05/29/18 13:19 05/29/18 13:19 05/29/18 08:57 05/29/18 08:57 Oxygen Flow Rate (L/min) 2.5 Oxygen Delivery Method Nasal Cannula Weight: 233 lb 11.04 oz Body Mass Index (BMI) 33.2 Intake and Output for Last 24 Hours 05/27/18 05/28/18 05/29/18 23:59 23:59 23:59 Intake Total 520 / 520 965 / 965 600 / 600 Output Total 500 / 500 2840 / 2840 Balance -1875 / -1875 600 / 600 Microbiology Past 72 Hours 05/28/18 10:20 Body Fluid Culture - Preliminary Fluid - Thoracentesis Fluid No growth-Final to follow Laboratory Tests Past 24 Hrs 05/29/18 05/29/18 05:36 05:36 WBC 5.8 RBC 2.60 L Hgb 7.9 L Hct 26.4 L MCV 101.5 H MCH 30.4 MCHC 29.9 L RDW 15.2 H RDW Differential 55.0 H Plt Count 139 L MPV 11.5 Sodium 141 Potassium 4.7 Chloride 109 H Carbon Dioxide 27.0 Anion Gap 5 BUN 44 H Creatinine 1.95 H Estim Creat Clear Calc 41.45 Est GFR (MDRD) Af Amer 45 L Est GFR (MDRD) Non-Af 37 L BUN/Creatinine Ratio 22.6 H Glucose 155 H Calcium 8.3 L POC Glucose 05/29/18 05/29/18 05/28/18 11:33 05:54 22:52 POC Glucose 160 H 165 H 147 H 05/28/18 17:05 POC Glucose 205 H Medical Necessity - Tobacco Use Smoking Status: Former smoker Assessment/Plan All Active Problems Acute respiratory failure (Acute) Shortness of breath (Acute) HCAP (healthcare-associated pneumonia) (Ruled-out) Systolic and diastolic CHF, acute on chronic (Acute)
[2018-05-29 13:43] LABS: Pathologist Comment/Body Fluid Reviewed
--- NOTE | 2018-05-29 13:51 | CASEMGMT ---
SW met with patient and his and discussed Palliative Care, signing up for Medicare D, and a primary care physician. SW gave them information on [place] [employer] Insurance Information Program for assistance with signing up for Medicare part D. They agreed to a Palliative Care referral. RODRIGUEZ explained once RODRIGUEZ makes the referral someone from Palliative Care will call them to set up a time to visit. SW called Palliative Care and made a referral as well as faxed over information. Plan: d/c home with a referral to Palliative Care. Isabella HIRSCH MSW
--- NOTE | 2018-05-30 16:29 | CASEMGMT ---
KARRIE BYRD Discharge Follow-up Phone Call: BEN: Khris Strata: 3 Call Date: 05/30/18 Discharge Date: 05/29/18 Time of Call: 1625 Duration: 4 min Admitting Diagnosis: CHF exacerbation KARRIE BYRD completed follow-up phone call after recent hospitalization. KARRIE BYRD spoke with . Patient is doing okay. had no questions regarding discharge instructions. was able to fill prescription without any problems. Patient has follow-up appt with director patient accounting on 06/03. Palliative is to meet with patient on 06/02.
== END 2018-05-29 15:10 | disposition home or self-care (01) | DRG 291 ==
LOC: ED 19:08 → ICU 21:33 → PCU 05-27 11:47
PROVIDERS: Internal Medicine Critical Care Medicine; Nurse Practitioner Family; Admitting Provider Family Medicine; Emergency Provider Emergency Medicine; Family Provider Internal Medicine; PCP Internal Medicine; Visit Provider Internal Medicine
DX: I13.0 Hypertensive heart and chronic kidney disease with heart failure and stage 1 through stage 4 chronic kidney disease, or unspecified chronic kidney disease (principal); J96.21 Acute and chronic respiratory failure with hypoxia; I50.33 Acute on chronic diastolic (congestive) heart failure; J91.8 Pleural effusion in other conditions classified elsewhere; Z99.81 Dependence on supplemental oxygen; Z87.891 Personal history of nicotine dependence; D53.9 Nutritional anemia, unspecified; E78.5 Hyperlipidemia, unspecified; N40.0 Benign prostatic hyperplasia without lower urinary tract symptoms; E11.22 Type 2 diabetes mellitus with diabetic chronic kidney disease; N18.3 Chronic kidney disease, stage 3 (moderate); J44.9 Chronic obstructive pulmonary disease, unspecified
CPT/HCPCS: 32555; 36415; 71045; 71046; 71250; 76604; 80048; 80053; 80061; 82607; 82728; 82746; 82945; 82962; 83540; 83550; 83615; 83735; 83880; 84156; 84157; 84443; 84484; 85025; 85027; 85610; 85730; 87070; 87075; 87205; 88108; 88305; 88313; 89050; 93005; 93306; 94640; 97162; 97165; 97530; 99282; Q9957; A4216; C8929; J1940

== ENCOUNTER 2018-06-02 06:39 | Emergency (ER) | payer MEDICARE, SELFPAY ==
[2018-06-02] VITALS (7 sets, daily range): BP systolic 140–196; BP diastolic 62–88; PULSE 55–83; RESP 12–40; TEMP 36.2; O2SAT 80–97; BMI 33.0
--- NOTE | 2018-06-02 06:47 | EKG12_ITS ---
Test Reason : SOB Blood Pressure : / mmHG Vent. Rate : 067 BPM Atrial Rate : 067 BPM P-R Int : 144 ms QRS Dur : 102 ms QT Int : 406 ms P-R-T Axes : 028 012 067 degrees QTc Int : 429 ms Normal sinus rhythm Septal infarct (cited on or before 07-FEB-2012) Abnormal ECG Confirmed by SHARONDA LEÓN, DAVID ([id number]), editor greeting card MEENAKSHI MALLORY ([id number]) on 06/03/2018 11:05:14 AM Referred By: [place] Confirmed By:DAVID MCDONOUGH MD
--- NOTE | 2018-06-02 06:47 | RAD_ITS ---
STUDY: X-RAY CHEST REASON FOR EXAM: Male, 67 years old. Shortness of breath TECHNIQUE: 1 view COMPARISON: May 28, 2018 FINDINGS: There is a slight decrease in the left-sided pleural effusion. There is a small right-sided pleural effusion with vague opacities in the right lung base suggestive of atelectatic changes and or consolidation. The heart remains enlarged.. Normal visualized thoracic spine. Normal visualized ribs, clavicles, and shoulders. There is no demonstrated abnormality of the visualized soft tissue structures of the upper abdomen. RAD/Chest 1 View (Portable) IMPRESSION: Bilateral pleural effusions. The effusion in the left lung is decreased when compared with the examination of May 28, 2018. There are a mixture of atelectatic changes and consolidations in the right lower lobe Electronically Signed: Edmond Mcfadden MD at 7:27 EDT Tel , Service support ,
--- NOTE | 2018-06-02 06:51 | ED.VISSUMM ---
- ER Visit Summary Date of Service: 06/02/18 Chief Complaint: Shortness of breath History of Present Illness: The patient is a 67 M presents to the emergency department with rather acute onset shortness of breath. The patient was recently hospitalized with a loculated pleural effusion. He had thoracentesis done Pleurx catheter was placed. Apparently, the catheter within the loculated section of fluid. However, he still able to have 1400 cc of fluid removed. Patient woke this morning with rather acute onset shortness of breath. He cannot move any air. He had no chest pain. He said no fever or chills. The patient was attempted Pap on squad arrival, but cannot tolerate it. His pulse ox is in the 70s. He does have tachypnea. History is hard to gather from the patient given his current respiratory distress. Physical Examination: Vital signs reviewed General: Well-nourished, well-developed Head: Normocephalic, atraumatic Eyes: Pupils equal and reactive, extraocular muscles intact Neck, supple, no lymphadenopathy Heart: Regular rate and rhythm Respiratory: Diminished throughout with tachypnea Abdomen: Soft, nontender, nondistended, no peritoneal signs Back: Nontender Extremities: Nontender, no edema, no cords Skin: Normal color no rash Neuro: Alert and oriented, no focal or lateralizing deficits Test Results: [] Emergency Department Course and Treatment: The patient presents to the emergency department with acute hypoxic respiratory failure. He has very diminished air movement with crackles more than shelter up bilaterally. The patient was transitioned to BiPAP which she was able to tolerate. His chest x-ray does show reaccumulation of pleural fluid with consolidation in the lower lobe. The patient already has a malfunctioning Pleurx catheter. I did discuss care with Dr. Celaya, and he did recommend transfer to tertiary facility as the patient is likely going to need a thoracic surgery consultation. He did have increased comfort on BiPAP. He was started on a nitro drip and given Lasix for his decompensated congestive heart failure. Screening labs are relatively unremarkable. His lactate was normal. ABG did demonstrate hypercapnia, but the patient's mental status was normal on BiPAP and seems to be improving. As the patient was recently hospitalized at [facility] where his catheter was placed, I do feel that this would be the best facility to manage this. I did discuss the patient with the transfer line. The patient was accepted by Dr. Loo and will be transferred. Treatment Plan: [] Disposition: Transfer Impression: 1. Acute hypoxic and hypercapnic respiratory failure 2. Acute exacerbation of congestive heart failure 3. Malfunctioning Pleurx catheter This note was generated with adSageation software. It may contain incorrect words, spelling, and punctuation that were not noted in review of the chart prior to signing ED Disposition - Plan for ED Patient: Chief Complaint: Shortness of Breath Referrals: Primo Barroso MD [Primary Care Provider] -
[2018-06-02 07:00] LABS: Absolute Lymphocyte Count 0.47 X10^3/ul (0.83-4.51); Absolute Neutrophil Count 4.4 X10^3/uL (2.0-7.7); Basophil# 0.03 X10^3/uL; Basophil% 0.5 % (0-1); Eosinophil# 0.34 X10^3/uL; Eosinophils% 5.7 % (0-5); Hemoglobin 8.7 g/dl (13.0-16.5); Lymphocyte # 0.47 X10^3/ul (4.0); Lymphocyte % 7.9 % (19-41); Mean Corpuscular Hgb 29.9 pg (27.0-32.0); Mean Corpuscular Volume 99.7 fL (80-94); Mean Platelet Vol. 11.5 fl (6.2-12.0); Monocyte# 0.69 X10^3/uL; Monocyte% 11.6 % (0-10); Neutrophil # 4.43 X10^3/uL (2.7-7.7); Neutrophil % 74.3 % (47-70); Platelet Count 160 K/mm3 (150-450); RBC Distribution Width CV 15.3 % (11.6-14.6); RBC Distribution Width SD 56.2 fl (35.1-43.9); Red Blood Count 2.91 M/mm3 (4.6-6.2)
[2018-06-02 07:06] LABS: Prothrombin Time (Protime)PT. 12.9 SECONDS (11.7-14.9)
[2018-06-02 07:08] LABS: Differential Indicated SCAN CRITERIA MET; POSITIVE COUNT NO; POSITIVE DIFFERENTIAL YES; POSITIVE MORPHOLOGY NO
[2018-06-02 07:19] LABS: Differential Comment SCANNED
[2018-06-02 07:29] LABS: Lactic Acid 0.5 mmol/L (0.4-2.0)
[2018-06-02] MEDS: Enalaprilat 1.25 MG/ML Vial IV (07:30)
[2018-06-02 07:32] LABS: ALB/GLOB Ratio 0.7 RATIO (0.9-2.4); AST(SGOT) 14 U/L (15-37); Alanine Aminotransfer ALT/SGPT 18 U/L (16-61); Albumin, Serum 2.5 g/dL (3.2-5.0); Alkaline Phosphatase 95 U/L (45-117); Anion Gap 5 (5-15); BUN 39 mg/dL (7-18); BUN/Creat Ratio 23.2 RATIO (10-20); Calcium,Total 8.5 mg/dL (8.5-10.1); Chloride 109 mmol/L (98-107); Creatinine, Serum 1.68 mg/dL (0.70-1.30); EST Glomerular Filtration Rate 44 mL/min (>60); Est Glom Filt Rate - Afr Amer 53 mL/min (>60); Estimated Creatinine Clearance 48.12 ml/min; Globulin 3.8 g/dL (2.2-4.2); Glucose 148 mg/dL (74-106); Lipase 81 U/L (73-393); Protein, Total 6.3 g/dL (6.4-8.2); Sodium Level 144 mmol/L (136-145)
[2018-06-02 07:45] LABS: Base Excess 3 mmol/L (-2 to +2); Bicarbonate 29.9 mmol/L (22-26); Blood Gas Specimen Type ART; EPAP 6; FI02 50; IPAP 12; PO2 131 mmHG (75-100); RR 12; SITE L Radial; SO2 98 % (95-99); Time Given 740; Total Carbon Dioxide 32 mmol/L; pCO2 66.6 mmHg (35-45); pH 7.26 (7.35-7.45)
[2018-06-02] MEDS: Furosemide 40 MG/4 ML Vial IV (07:45)
== END 2018-06-02 09:28 | disposition short-term general hospital (02) ==
LOC: ED 06:52
PROVIDERS: Emergency Provider Emergency Medicine; Family Provider Internal Medicine; PCP Internal Medicine
DX: J96.02 Acute respiratory failure with hypercapnia (principal); J96.01 Acute respiratory failure with hypoxia; I11.0 Hypertensive heart disease with heart failure; I50.9 Heart failure, unspecified; T85.618A Breakdown (mechanical) of other specified internal prosthetic devices, implants and grafts, initial encounter; E11.9 Type 2 diabetes mellitus without complications; Z79.82 Long term (current) use of aspirin; Z79.899 Other long term (current) drug therapy; Z87.891 Personal history of nicotine dependence
CPT/HCPCS: 36600; 71045; 80053; 82803; 83605; 83690; 84484; 85025; 85610; 87040; 93005; 94002; 96365; 96366; 96375; 99285; J7030; A4216; J1940